=== PATIENT | female | born 1935 | race Caucasian/White ===

== ENCOUNTER 2017-07-19 11:58 | Inpatient (IN) | payer MEDICARE, BC ==
[~2017-07-19] VITALS: Ht 154.9 cm; Wt 57.2 kg
[~2017-07-19 11:58] MED LIST: LISI2.5T3 PO; NAPR500 PO; NEXI20CA PO; NORV2.5T11 PO; TRAM50 PO
[2017-07-19 12:05] VITALS: BP 95/59; PULSE 100; RESP 16; TEMP 98.2; O2SAT 98
[2017-07-19] MEDS ORDERED: LISI2.5T3 PO (12:25)
[2017-07-19] MEDS ORDERED: NEXI20CA PO (12:25)
[2017-07-19] MEDS ORDERED: AMLO2.5T PO (12:25)
[2017-07-19] MEDS ORDERED: SODIUM CHLORIDE 0.9% FLUSH 10 ML FLUSH IVF PRN (12:30)
--- NOTE | 2017-07-19 12:30 | PD ---
HPI Chief Complaint: Injury Time Seen by Provider: 12:07 Travel History International Travel<30 days: No Contact w/Intl Traveler<30days: No Traveled to known affect area: No History of Present Illness HPI 82-year-old female presents emergency department for evaluation of right hip pain after falling on Sunday, 3 days ago. Patient states her neighbor who is a glass toughening operator picked her up Sunday night and took her to the couch to lay down. She has not gotten up from the couch since then. She states the pain is too bad to walk on it. There is shortening of the right leg. Pedal pulses intact. Patient denies hitting her head or losing consciousness during the fall. It was a mechanical fall due to a rolling chair. Patient states she is tried to sit down on a chair rolled away from her. She landed on her right hip. She denies any other injuries associated with this fall. She denies any neck or back pain. She is not on any blood thinners. She states her appetite has been decreased secondary to pain. She denies any abdominal pain, vomiting or diarrhea When the patient was placed on the monitor it was noted her heart rate to be in the 160s. EKG was performed and it was noted to be SVT. Patient performed a vagal maneuver and her heart rate decreased into the 80s sinus rhythm. The patient denies any chest pain or shortness of breath associated with this event. She was noted transition back into SVT multiple times during her ED stay. Each time she transition into SVT she was able to convert back into normal sinus rhythm with a vagal maneuver. PFSH Past Medical History Diminished Hearing: No GERD: Yes Hypertension: Yes Tubal Ligation: Yes Past Surgical History Appendectomy: Yes Social History Alcohol Use: Yes (WINE OCCASSIONALLY) Tobacco Use: No Substance Use: No Allergies-Medications (Allergen,Severity, Reaction): Coded Allergies: No Known Allergies (Verified Allergy, Unknown, 07/19/17) Reported Meds & Prescriptions Reported Meds & Active Scripts Active Reported Nexium (Esomeprazole DR) 40 Mg Capdr 40 Mg PO DAILY Amlodipine (Amlodipine Besylate) 10 Mg Tab 10 Mg PO DAILY Lisinopril 20 Mg Tab 20 Mg PO DAILY Lisinopril 2.5 Mg Tab 2.5 Mg PO DAILY Nexium (Esomeprazole DR) 20 Mg Capdr 20 Mg PO DAILY Amlodipine (Amlodipine Besylate) 2.5 Mg Tab 2.5 Mg PO DAILY Review of Systems Except as stated in HPI: all other systems reviewed are Neg Musculoskeletal: Positive: Pain (right hip) Physical Exam Narrative GENERAL: Well-nourished, well-developed pale 82-year-old female patient. SKIN: Cool, pale and diaphoretic. HEAD: Normocephalic. Atraumatic. EYES: No scleral icterus. No injection or drainage. NECK: Supple, trachea midline. No JVD or lymphadenopathy. CARDIOVASCULAR: Regular rate and rhythm without murmurs, gallops, or rubs. RESPIRATORY: Breath sounds equal bilaterally. No accessory muscle use. GASTROINTESTINAL: Abdomen soft, non-tender, nondistended. MUSCULOSKELETAL: Right leg shortening. No external rotation noted. Pedal pulses +2. Right foot neurovascularly intact. No obvious deformity, ecchymosis , edema, erythema. BACK: No midline spinal tenderness. No obvious deformity, ecchymosis, erythema , cyanosis, edema. No CVA tenderness. Data Data Last Documented VS Vital Signs Date Time Temp Pulse Resp B/P (MAP) Pulse Ox O2 Delivery O2 Flow Rate FiO2 07/19/17 12:49 99 Room Air 07/19/17 12:05 98.2 100 16 95/59 (71) Orders Orders Electrocardiogram (07/19/17 12:23) Basic Metabolic Panel (Bmp) (07/19/17 12:23) Ckmb (Isoenzyme) Profile (07/19/17 12:23) Complete Blood Count With Diff (07/19/17 12:23) Magnesium (Mg) (07/19/17 12:23) Prothrombin Time / Inr (Pt) (07/19/17 12:23) Act Partial Throm Time (Ptt) (07/19/17 12:23) Troponin I (07/19/17 12:23) Iv Access Insert/Monitor (07/19/17 12:23) Oximetry (07/19/17 12:23) Sodium Chloride 0.9% Flush (Ns Flush) (07/19/17 12:30) Hip, Uni(Ap&Lat) W Ap Pelvis (07/19/17 12:23) Sodium Chlor 0.9% 1000 Ml Inj (Ns 1000 M (07/19/17 12:45) Chest, Single Ap (07/19/17 12:31) Sodium Chlor 0.9% 1000 Ml Inj (Ns 1000 M (07/19/17 12:45) Creatine Kinase (Cpk) (07/19/17 12:49) CKMB (07/19/17 12:35) CKMB% (07/19/17 12:35) Potassium Chlor 20 Meq Premix (Kcl 20 Me (07/19/17 14:00) Ns + Kcl 20 Meq Inj (Ns + Kcl 20 Meq Inj (07/19/17 14:00) Potassium Chloride (Kcl) (07/19/17 14:15) Admit Order (Ed Use Only) (07/19/17 15:02) Labs Laboratory Tests Test 07/19/17 12:35 White Blood Count 8.7 TH/MM3 Red Blood Count 3.35 MIL/MM3 Hemoglobin 11.9 GM/DL Hematocrit 33.7 % Mean Corpuscular Volume 100.5 FL Mean Corpuscular Hemoglobin 35.3 PG Mean Corpuscular Hemoglobin Concent 35.2 % Red Cell Distribution Width 13.6 % Platelet Count 163 TH/MM3 Mean Platelet Volume 8.0 FL Neutrophils (%) (Auto) 79.5 % Lymphocytes (%) (Auto) 8.4 % Monocytes (%) (Auto) 11.8 % Eosinophils (%) (Auto) 0.1 % Basophils (%) (Auto) 0.2 % Neutrophils # (Auto) 6.9 TH/MM3 Lymphocytes # (Auto) 0.7 TH/MM3 Monocytes # (Auto) 1.0 TH/MM3 Eosinophils # (Auto) 0.0 TH/MM3 Basophils # (Auto) 0.0 TH/MM3 CBC Comment DIFF FINAL Differential Comment Prothrombin Time 10.5 SEC Prothromb Time International Ratio 1.0 RATIO Activated Partial Thromboplast Time 32.4 SEC Blood Urea Nitrogen 6 MG/DL Creatinine 0.57 MG/DL Random Glucose 106 MG/DL Calcium Level 8.2 MG/DL Magnesium Level 0.8 MG/DL Sodium Level 113 MEQ/L Potassium Level 2.7 MEQ/L Chloride Level 76 MEQ/L Carbon Dioxide Level 25.3 MEQ/L Anion Gap 12 MEQ/L Estimat Glomerular Filtration Rate 101 ML/MIN Total Creatine Kinase 123 U/L Creatine Kinase MB 2.4 NG/ML Troponin I LESS THAN 0.02 NG/ML MDM Medical Decision Making Medical Screen Exam Complete: Yes Emergency Medical Condition: Yes Differential Diagnosis Differential diagnoses include but not limited to hip fracture, hip contusion, arrhythmia, fall, electrolyte abnormality Narrative Course Patient placed on the monitor soon as she arrived from EMS and was noted to have a heart rate in the 160s. EKG obtained in SVT was determined with heart rate 169. Vagal maneuver performed and patient converted into normal sinus rhythm with heart rate in 80s. Second EKG obtained to confirm sinus rhythm. IV obtained and blood work sent to the lab. CBC, BMP, troponin, CK-MB, total CK , magnesium, PT/INR ordered and pending. Chest x-ray ordered and pending. Right hip x-ray ordered and pending. 500 mL bolus normal saline ordered for hydration. X-ray of the right hip shows impacted femoral neck fracture on the right. Chest x-ray shows normal examination. CBC came back with no acute abnormality noted. BMP resulted in critical hyponatremia at 113, critical hypokalemia at 2.7, hypo-magnesium at 0.8. Total CK was within normal limits at 107. Patient case discussed with my attending, Dr. Keenan and it was recommended to give additional 2 L normal saline bolus, 40 mEq KCl by mouth, 20 mEq KCl IV bolus and normal saline +20 KCl at 100 mL an hour. Rail Gang Supervisor paged for admission. Dr. Fernandez returned page and accepted admission. Patient will be admitted to [facility] for electrolyte correction and hip fracture repair. Diagnosis Primary Impression: Hypokalemia Additional Impressions: Hyponatremia Hypomagnesemia Paroxysmal SVT (supraventricular tachycardia) Closed fracture of right hip Qualified Codes: S72.001A - Fracture of unspecified part of neck of right femur, initial encounter for closed fracture Admitting Information Admitting Physician Requests: Admit Dayna Cadena Jul 19, 2017 12:30
[2017-07-19] MEDS ORDERED: SODIUM CHLOR 0.9% 1000 ML INJ 1,000 ML IV ONE ×2 (12:45)
[2017-07-19 12:49] VITALS: O2SAT 99
[2017-07-19 13:06] LABS: AUTOMATED NEUTROPHIL # 6.9 TH/MM3 (1.8-7.7); BASOPHIL % 0.2 % (0.0-2.0); EOSINOPHIL % 0.1 % (0.0-4.0); HEMATOCRIT 33.7 % (35.0-46.0); HEMO FLAGS DIFF FINAL; LYMPH % 8.4 % (9.0-44.0); LYMPHOCYTE # 0.7 TH/MM3 (1.0-4.8); MEAN CELL VOLUME 100.5 FL (80.0-100.0); MEAN CORPUSCULAR HEMOGLOBIN 35.3 PG (27.0-34.0); MEAN CORPUSCULAR HGB CONC 35.2 % (32.0-36.0); MONO % 11.8 % (0.0-8.0); NEUT % 79.5 % (16.0-70.0); PLATELET COUNT 163 TH/MM3 (150-450); RED BLOOD COUNT 3.35 MIL/MM3 (4.00-5.30); RED CELL DISTRIBUTION WIDTH 13.6 % (11.6-17.2); WHITE BLOOD COUNT 8.7 TH/MM3 (4.0-11.0)
[2017-07-19 13:09] LABS: APTT (PATIENT) 32.4 SEC (24.3-30.1); PROTHROMBIN TIME - PATIENT 10.5 SEC (9.8-11.6)
[2017-07-19 13:38] LABS: ANION GAP 12 MEQ/L (5-15); BICARBONATE 25.3 MEQ/L (21.0-32.0); BLOOD UREA NITROGEN 6 MG/DL (7-18); CHLORIDE 76 MEQ/L (98-107); CREATINE KINASE 123 U/L (26-192); GLOMERULAR FILTRATION RATE 101 ML/MIN (>89); MAGNESIUM 0.8 MG/DL (1.5-2.5)
[2017-07-19 13:44] LABS: SODIUM (NA) 113 MEQ/L (136-145)
[2017-07-19 13:45] LABS: POTASSIUM 2.7 MEQ/L (3.5-5.1)
--- NOTE | 2017-07-19 13:53 | RADRPT ---
EXAM DATE/TIME: 07/19/2017 13:06 [facility] COMPARISON: No previous studies available for comparison. INDICATIONS : Right hip and pelvis pain due to fall. MEDICAL HISTORY : None. SURGICAL HISTORY : None. ENCOUNTER: Initial ACUITY: 1 day PAIN SCORE: 8/10 LOCATION: Right Hip and pelvis. FINDINGS: Examination of the right hip was performed with AP Pelvis. There is an impacted low femoral neck frac ture of the right hip. Visualized femoral head and acetabulum are unremarkable CONCLUSION: Impacted left femoral neck fracture on the right.. Jak Camacho MD on July 19, 2017 at 13:51 Board Certified Radiologist. This report was verified electronically.
--- NOTE | 2017-07-19 13:55 | RADRPT ---
EXAM DATE/TIME: 07/19/2017 13:11 [facility] COMPARISON: No previous studies available for comparison. INDICATIONS : Chest pain due to fall. MEDICAL HISTORY : None. SURGICAL HISTORY : None. ENCOUNTER: Initial ACUITY: 1 day PAIN SCORE: 8/10 LOCATION: Bilateral chest FINDINGS: A single view of the chest demonstrates the lungs to be symmetrically aerated without evidence of mas s, infiltrate or effusion. The cardiomediastinal contours are unremarkable. Osseous structures are intact. CONCLUSION: Normal examination. 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 This report was verified electronically.
[2017-07-19] MEDS ORDERED: POTASSIUM CHLOR 20 MEQ PREMIX 100 ML IV ONE (14:00)
[2017-07-19] MEDS ORDERED: POTASSIUM CHLORIDE 20 MEQ CONTROLLED RELEASE TAB PO ONE ×2 (14:00→14:15)
[2017-07-19] MEDS ORDERED: NS + KCL 20 MEQ INJ 1,000 ML IV SCH (14:00)
[2017-07-19 14:01] LABS: CKMB 2.4 NG/ML (0.5-3.6)
[2017-07-19] MEDS ORDERED: POTASSIUM CHLORIDE 25 MEQ EFFERVESCENT TAB PO ONE (14:15)
[2017-07-19] MEDS ORDERED: LACTULOSE SYRUP 20 GM/30 ML CUP PO PRN (16:00)
[2017-07-19] MEDS ORDERED: MORPHINE SULFATE 4 MG/ML INJ IV PUSH PRN (16:00)
[2017-07-19] MEDS ORDERED: SODIUM CHLORIDE 0.9% FLUSH 10 ML FLUSH IV FLUSH PRN (16:00)
[2017-07-19] MEDS ORDERED: MISCELLANEOUS NURSING INFORMATION XX SCH (16:00)
[2017-07-19] MEDS ORDERED: BISACODYL 10 MG SUPP RECTAL PRN (16:00)
[2017-07-19] MEDS ORDERED: SENNOSIDES 8.6 MG TAB PO PRN (16:00)
[2017-07-19] MEDS ORDERED: ONDANSETRON HCL 4 MG/2 ML VIAL IV PUSH PRN (16:00)
[2017-07-19] MEDS ORDERED: MAGNESIUM HYDROXIDE SUSP 30 ML CUP PO PRN (16:00)
[2017-07-19] MEDS ORDERED: CHLORHEXIDINE GLUCONATE 2 % 1 PACK (2 CLOTHS) TOP PRN (16:00)
[2017-07-19] MEDS ORDERED: DESMOPRESSIN ACETATE 4 MCG/ML VIAL SQ PRN (16:00)
--- NOTE | 2017-07-19 17:23 | HHI.HP ---
[facility] Service Critical Care Medicine Primary Care Physician Esteban Spears MD Admission Diagnosis fracture right hip, hyponatremia, hypokalemia, runs of SVT Diagnosis: (1) Closed fracture of right hip Diagnosis: Principal (2) Hyponatremia Diagnosis: Principal (3) Hypokalemia Diagnosis: Principal (4) Paroxysmal SVT (supraventricular tachycardia) Diagnosis: Principal (5) Hypomagnesemia Diagnosis: Principal Chief Complaint: Right hip pain. Travel History International Travel<30 Days: No Contact w/Intl Traveler <30 Da: No Traveled to Known Affected Are: No History of Present Illness Completely lucid and oriented 82 y/o woman brought to ED by EMS 3 days following a fall at home. She slid off a rolling chair and landed on her butt. Refused to come to ED earlier. Episode SVT at scene. Na 113, K 2.7, Mag 0.8 on arrival. BUN 6. Obviously well hydrated and hyponatremia probably chronic. She received 2,500 mls NS in ED and I am concerned about over-correction. We'll check sodium q4h and start DDAVP for Na > 120. May need D5W iv. Correct lytes, check cardiac markers. She has no chest pain or SOB and is O X 3 and alert. Hip fracture will need to wait for electrolyte correction. Past Family Social History Allergies: Coded Allergies: No Known Allergies (Verified Allergy, Unknown, 07/19/17) Past Medical History Past Medical History Diminished Hearing: No GERD: Yes Hypertension: Yes Tubal Ligation: Yes Past Surgical History Appendectomy: Yes Social History Alcohol Use: Yes (WINE OCCASIONALLY) Tobacco Use: No Substance Use: No Allergies-Medications Allergies-Medications (Allergen,Severity, Reaction): Coded Allergies: No Known Allergies (Verified Adverse Reaction, Unknown, 07/19/17) Reported Meds & Prescriptions Reported Meds & Active Scripts Active Reported Lisinopril 2.5 Mg Tab 2.5 Mg PO DAILY Nexium (Esomeprazole DR) 20 Mg Capdr 20 Mg PO DAILY Amlodipine (Amlodipine Besylate) 2.5 Mg Tab 2.5 Mg PO DAILY Physical Exam Vital Signs Vital Signs Date Time Temp Pulse Resp B/P (MAP) Pulse Ox O2 Delivery O2 Flow Rate FiO2 07/19/17 12:49 99 Room Air 07/19/17 12:05 98.2 100 16 95/59 (71) 98 Physical Exam Gen: Alert, calm. N Head: Atrauamatic. Neck: Supple, airway widely patent. Lungs: Clear, no wheezes or crackles. Heart: RRR, occ PMB, no m,r. Neck veins full, not distended. Abdomen: Benign, soft, BS active. No guarding. Extremities: Warm, well perfused. No peripheral edema. Tender right hip to palpation. Neuro: O X 3, alert, cooperative. CN II-XII intact. Moves 4 limbs to command. Laboratory Laboratory Tests Test 07/19/17 12:35 White Blood Count 8.7 Red Blood Count 3.35 Hemoglobin 11.9 Hematocrit 33.7 Mean Corpuscular Volume 100.5 Mean Corpuscular Hemoglobin 35.3 Mean Corpuscular Hemoglobin Concent 35.2 Red Cell Distribution Width 13.6 Platelet Count 163 Mean Platelet Volume 8.0 Neutrophils (%) (Auto) 79.5 Lymphocytes (%) (Auto) 8.4 Monocytes (%) (Auto) 11.8 Eosinophils (%) (Auto) 0.1 Basophils (%) (Auto) 0.2 Neutrophils # (Auto) 6.9 Lymphocytes # (Auto) 0.7 Monocytes # (Auto) 1.0 Eosinophils # (Auto) 0.0 Basophils # (Auto) 0.0 CBC Comment DIFF FINAL Differential Comment Prothrombin Time 10.5 Prothromb Time International Ratio 1.0 Activated Partial Thromboplast Time 32.4 Blood Urea Nitrogen 6 Creatinine 0.57 Random Glucose 106 Calcium Level 8.2 Magnesium Level 0.8 Sodium Level 113 Potassium Level 2.7 Chloride Level 76 Carbon Dioxide Level 25.3 Anion Gap 12 Estimat Glomerular Filtration Rate 101 Total Creatine Kinase 123 Creatine Kinase MB 2.4 Troponin I LESS THAN 0.02 Result Diagram: 07/19/17 1235 07/19/17 1235 Imaging Pelvis: Impacted fracture right femoral neck Caprini VTE Risk Assessment Caprini VTE Risk Assessment: Mod/High Risk (score >= 2) Caprini Risk Assessment Model Point Value = 1 Point Value = 2 Point Value = 3 Point Value = 5 Age 41-60 Minor surgery BMI > 25 kg/m2 Swollen legs Varicose veins or History of unexplained or recurrent spontaneous Oral contraceptives or hormone replacement Sepsis (< 1 month) Serious lung disease, including pneumonia (< 1 month) Abnormal pulmonary function Acute myocardial infarction Congestive heart failure (< 1 month) History of inflammatory bowel disease Medical patient at bed rest Age 61-74 Arthroscopic surgery Major open surgery (> 45 min) Laparoscopic surgery (> 45 min) Malignancy Confined to bed (> 72 hours) Immobilizing plaster cast Central venous access Age >= 75 History of VTE Family history of VTE Factor V Leiden Prothrombin [id number] Lupus anticoagulant Anticardiolipin antibodies Elevated serum homocysteine Heparin-induced thrombocytopenia Other congenital or acquired thrombophilia Stroke (< 1 month) Elective arthroplasty Hip, pelvis, or leg fracture Acute spinal cord injury (< 1 month) Prophylaxis Regimen Total Risk Factor Score Risk Level Prophylaxis Regimen 0-1 Low Early ambulation 2 Moderate Order ONE of the following: *Sequential Compression Device (SCD) *Heparin 5000 units SQ BID 3-4 Higher Order ONE of the following medications: *Heparin 5000 units SQ TID *Enoxaparin/Lovenox 40 mg SQ daily (WT < 150 kg, CrCl > 30 mL/min) *Enoxaparin/Lovenox 30 mg SQ daily (WT < 150 kg, CrCl > 10-29 mL/min) *Enoxaparin/Lovenox 30 mg SQ BID (WT < 150 kg, CrCl > 30 mL/min) AND/OR *Sequential Compression Device (SCD) 5 or more Highest Order ONE of the following medications: *Heparin 5000 units SQ TID (Preferred with Epidurals) *Enoxaparin/Lovenox 40 mg SQ daily (WT < 150 kg, CrCl > 30 mL/min) *Enoxaparin/Lovenox 30 mg SQ daily (WT < 150 kg, CrCl > 10-29 mL/min) *Enoxaparin/Lovenox 30 mg SQ BID (WT < 150 kg, CrCl > 30 mL/min) AND *Sequential Compression Device (SCD) Assessment and Plan Problem List: (1) Paroxysmal SVT (supraventricular tachycardia) ICD Code: I47.1 - Supraventricular tachycardia Status: Acute (2) Closed fracture of right hip ICD Code: S72.001A - Fracture of unspecified part of neck of right femur, initial encounter for closed fracture Status: Acute (3) Hyponatremia ICD Code: E87.1 - Hypo-osmolality and hyponatremia Status: Chronic (4) Hypokalemia ICD Code: E87.6 - Hypokalemia Assessment and Plan Plan: 1. Bed rest. 2. Feed if no surgery. 3. No salt shaker. 4. Na q4h. 5. DDAVP for Na > 120 next 24 hours. 6. D5W iv if Na > 121. 7. EKG. 8. SCDs. 9. Heparin 5000 tid - hold for OR when scheduled. 10. Cardiac markers. 11. Correct Magnesium, Potassium. Overall impression: Critically ill with life-threatening electrolyte imbalance. Potentially devastating neurological injury if probable chronic hyponatremia is corrected too fast. After 2.5 liters NS we are probably already too high. Check Na now and hold correction to less than 120 over first 24 hours. Episode of SVT probably triggered by low K and Mag. Anticipate roller coaster Na. Critical care 40 mins Wilbur Fernandez MD Jul 19, 2017 17:23
[2017-07-19] MEDS ORDERED: POTASSIUM CHLORIDE INJ 20 MEQ in DEXTROSE 5% IN WATE 1000ML INJ 1,000 ML IV SCH ×2 (17:45)
[2017-07-19 18:00] VITALS: PULSE 78
[2017-07-19] MEDS ORDERED: POTASSIUM CHLORIDE INJ 20 MEQ in LACTATED RINGER'S 1000 ML INJ 1,000 ML IV SCH (18:00)
[2017-07-19] MEDS ORDERED: LISI-515 PO (18:33)
[2017-07-19] MEDS ORDERED: AMLO10TA2 PO (18:34)
[2017-07-19] MEDS ORDERED: NEXI40CA PO (18:35)
[2017-07-19] MEDS ORDERED: MAGNESIUM OXIDE 400 MG TAB PO PRN (19:00)
[2017-07-19] MEDS ORDERED: POTASSIUM CHLORIDE 25 MEQ EFFERVESCENT TAB PO PRN (19:00)
[2017-07-19] MEDS ORDERED: SODIUM PHOSPHATE INJ 30 MMOL in SODIUM CHLOR 0.9% 250 ML INJ 240 ML IV PRN (19:00)
[2017-07-19] MEDS ORDERED: POTASSIUM PHOSPHATE MONOBASIC 500 MG TAB PO/TUBE PRN (19:00)
[2017-07-19] MEDS ORDERED: POTASSIUM PHOSPHATE MONOBASIC 500 MG TAB PO PRN (19:00)
[2017-07-19] MEDS ORDERED: POTASSIUM CHLOR 20 MEQ PREMIX 100 ML IV PRN (19:00)
[2017-07-19] MEDS ORDERED: MAGNESIUM SULFATE INJ 2 GM in SODIUM CHLORIDE 0.9% INJ 96 ML IV PRN (19:00)
[2017-07-19] MEDS ORDERED: POTASSIUM CHLOR 40 MEQ PREMIX 100 ML IV PRN ×2 (19:00)
[2017-07-19] MEDS ORDERED: POTASSIUM PHOSPHATE INJ 30 MMOL in SODIUM CHLOR 0.9% 250 ML INJ 250 ML IV PRN (19:00)
[2017-07-19 19:49] LABS: POTASSIUM 3.1 MEQ/L (3.5-5.1)
[2017-07-19 20:00] VITALS: BP 120/61; PULSE 76; RESP 17; TEMP 98; O2SAT 100
[2017-07-19] MEDS ORDERED: MAGNESIUM SULFATE INJ 4 GM in SODIUM CHLORIDE 0.9% INJ 92 ML IV PRN (21:00)
[2017-07-19] MEDS: FAMOTIDINE 20 MG/2 ML VIAL IV PUSH SCH (21:19)
[2017-07-19] MEDS: ACETAMINOPHEN 325 MG TAB PO PRN (21:19)
[2017-07-19] MEDS: D5W + KCL 20 MEQ INJ 1,000 ML IV SCH (21:19)
[2017-07-19] MEDS: MAGNESIUM SULFATE 1 GM PREMIX 100 ML IV SCH ×2 (21:19→22:22)
[2017-07-19] MEDS: DOCUSATE SODIUM 50 MG/SENNA 8.6 MG TAB PO SCH (21:19)
[2017-07-19] MEDS: SODIUM CHLORIDE 0.9% FLUSH 10 ML FLUSH IV FLUSH SCH (21:20)
[2017-07-19 22:00] VITALS: PULSE 68
[2017-07-19] MEDS: POTASSIUM CHLOR 20 MEQ PREMIX 100 ML IV PRN (22:20)
[2017-07-20] VITALS (12 sets, daily range): BP systolic 99–136; BP diastolic 55–93; PULSE 62–84; RESP 14–26; TEMP 97.7–98.2; O2SAT 98–100
[2017-07-20 01:20] LABS: AUTOMATED NEUTROPHIL # 4.9 TH/MM3 (1.8-7.7); BASOPHIL % 0.5 % (0.0-2.0); EOSINOPHIL % 0.6 % (0.0-4.0); HEMATOCRIT 30.6 % (35.0-46.0); HEMO FLAGS DIFF FINAL; LYMPH % 13.7 % (9.0-44.0); LYMPHOCYTE # 0.9 TH/MM3 (1.0-4.8); MEAN CELL VOLUME 102.1 FL (80.0-100.0); MEAN CORPUSCULAR HEMOGLOBIN 35.7 PG (27.0-34.0); NEUT % 72.2 % (16.0-70.0); PLATELET COUNT 163 TH/MM3 (150-450); RED CELL DISTRIBUTION WIDTH 13.6 % (11.6-17.2); WHITE BLOOD COUNT 6.7 TH/MM3 (4.0-11.0)
[2017-07-20 01:42] LABS: BICARBONATE 24.9 MEQ/L (21.0-32.0); MAGNESIUM 1.9 MG/DL (1.5-2.5)
[2017-07-20 01:50] LABS: POTASSIUM 2.8 MEQ/L (3.5-5.1)
[2017-07-20] MEDS: POTASSIUM CHLOR 20 MEQ PREMIX 100 ML IV PRN ×3 (03:09→08:19)
[2017-07-20] MEDS: CHLORHEXIDINE GLUCONATE 2 % 1 PACK (2 CLOTHS) TOP SCH (03:24)
[2017-07-20] MEDS: ACETAMINOPHEN 325 MG TAB PO PRN ×2 (03:28→10:11)
[2017-07-20] MEDS: SODIUM CHLORIDE 0.9% FLUSH 10 ML FLUSH IV FLUSH SCH ×2 (08:19→19:45)
--- NOTE | 2017-07-20 09:26 | HHI.CCPN ---
Subjective Remarks/Hospital Course Completely lucid and oriented 82 y/o woman brought to ED by EMS 3 days following a fall at home. She slid off a rolling chair and landed on her buttocks. Refused to come to ED earlier. Episode SVT at scene. Na 113, K 2.7, Mag 0.8 on arrival. BUN 6. Obviously well hydrated and hyponatremia probably chronic. She received 2,500 mls NS in ED and CCM concerned about over- correction. We'll check sodium q4h and start DDAVP for Na > 120. May need D5W iv. Correct lytes, check cardiac markers. She has no chest pain or SOB and is O X 3 and alert. Hip fracture will need to wait for electrolyte correction. Subjective: 07/20 Sodium correcting at appropriate rate up until 1 am, next set of labs are pending. Still hypokalemic and receiving replacement. Patient recalls being told she had hyponatremia in the past but says last outpatient labs were a year ago. Says she eats very little, just a little fruit here and there. Objective Vital Signs Date Time Temp Pulse Resp B/P (MAP) Pulse Ox O2 Delivery O2 Flow Rate FiO2 07/20/17 07:00 99 Room Air 07/20/17 06:00 62 07/20/17 04:28 23 07/20/17 04:00 98.0 121/55 (77) 07/20/17 00:41 21 Intake and Output 07/20/17 07/20/17 07/21/17 08:00 16:00 00:00 Intake Total 440 ml Output Total 2150 ml Balance -1710 ml Result Diagram: 07/20/17 0100 07/20/17 0100 Imaging Pelvis: Impacted fracture right femoral neck Objective Remarks GENERAL: Alert and interactive, sitting up in ISC bed. SKIN: Warm and dry. HEAD: Atraumatic. Normocephalic. EYES: Pupils equal and round. No scleral icterus. No injection or drainage. ENT: No nasal bleeding or discharge. Mucous membranes pink and moist. NECK: Trachea midline. No JVD. CARDIOVASCULAR: Regular rate and rhythm, sinus on the monitor. No murmurs rubs or gallops. RESPIRATORY: No accessory muscle use. Clear to auscultation. Breath sounds equal bilaterally. On RA. GASTROINTESTINAL: Abdomen soft, non-tender, nondistended. Bowel sounds present. MUSCULOSKELETAL: Extremities without clubbing, cyanosis, or edema. R leg shortened. . NEUROLOGICAL: Awake and alert. No obvious cranial nerve deficits. Normal speech. Oriented 3. Moves all extremities. A/P Problem List: (1) Paroxysmal SVT (supraventricular tachycardia) ICD Code: I47.1 - Supraventricular tachycardia Status: Resolved (2) Closed fracture of right hip ICD Code: S72.001A - Fracture of unspecified part of neck of right femur, initial encounter for closed fracture Status: Acute (3) Hyponatremia ICD Code: E87.1 - Hypo-osmolality and hyponatremia Status: Chronic (4) Hypokalemia ICD Code: E87.6 - Hypokalemia Status: Chronic Assessment and Plan NEURO: Alert and oriented Tylenol prn pain 1-5. Lortab as needed for pain 6-10 RESP: On room air. Incentive spirometry every hour CV: SVT (resolved) SVT likely secondary to hypomagnesemia and hypokalemia. Troponin negative Obtain 2-D echo GI: On heart healthy diet. Will hold when surgery scheduled. FEN/RENAL: Chronic hyponatremia Hypokalemia Hypomagnesemia Traore is in place. Monitor intake and output. Monitor electrolytes and replacing K and Mag. 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 Hyperaldosteronism is a consideration with the hypokalemia, will check renin and aldosterone as lisinopril has been on hold. CXR with no mass. Will check TSH and cortisol. Remainder of hyponatremia workup of little utility at this point after receiving IVF. DDAVP was ordered prn if sodium >120 in first 24 hours. Monitor sodium q4 hours. Sodium followed throughout the day and has reached a plateau at ~ 117-118. She is asymptomatic with this. As of 14:42 overall correction of 4 mEQ over 26 hours. Will fluid restrict to 800 mL. Salt tab 0.5 g po q 6hours but continue to follow sodium closely and avoid correction of sodium >124 over the following 24 hours. ID: Monitor for signs and symptoms of infection HEME: Monitor CBC ENDO: Euglycemic. Follow cortisol and TSH. MSK: R femoral neck fracture ortho consult. Would hold off on surgery today due to electrolyte derangements and need for slow correction of chronic hyponatremia due to risk for osmotic demyelination. Prefer sodium to be in upper 120s before surgery to avoid this complication which would be Sunday. PROPH: SCDs for DVT prophylaxis. Heparin 5000 subcutaneous q8 hours and hold when surgery schedule. ACCESS: PIV Discussed with ortho surgery. Level 3 followup. Problem Qualifiers (1) Closed fracture of right hip: Qualified Codes: S72.001A - Fracture of unspecified part of neck of right femur , initial encounter for closed fracture Shakila Hyatt MD Jul 20, 2017 09:26
[2017-07-20] MEDS ORDERED: INFLUENZA VIRUS VACCINE (QUADRIVALENT) 0.5 ML SYR IM ONE (10:00)
[2017-07-20] MEDS: FAMOTIDINE 20 MG/2 ML VIAL IV PUSH SCH ×2 (10:10→21:37)
[2017-07-20] MEDS: DOCUSATE SODIUM 50 MG/SENNA 8.6 MG TAB PO SCH ×2 (10:13→19:44)
--- NOTE | 2017-07-20 11:25 | PD.ORT.PN ---
Subjective Subjective Remarks s/p fall at home while cooking. reports right hip pain. overall, resting comfortably no real complaints. Objective Vitals Vital Signs Date Time Temp Pulse Resp B/P (MAP) Pulse Ox O2 Delivery O2 Flow Rate FiO2 07/20/17 07:00 99 Room Air 07/20/17 06:00 62 07/20/17 04:28 23 07/20/17 04:00 64 07/20/17 04:00 98.0 64 14 121/55 (77) 100 07/20/17 02:00 73 07/20/17 00:41 100 21 07/20/17 00:00 68 07/20/17 00:00 97.8 68 26 99/56 (70) 100 07/19/17 22:00 68 07/19/17 20:00 98.0 76 17 120/61 (80) 100 07/19/17 20:00 76 07/19/17 19:00 100 Room Air 07/19/17 18:00 78 07/19/17 12:49 99 Room Air 07/19/17 12:05 98.2 100 16 95/59 (71) 98 I/O 07/19/17 07/19/17 07/19/17 07/20/17 07/20/17 07/20/17 07:00 15:00 23:00 07:00 15:00 23:00 Intake Total 1000 ml 1200 ml 540 ml Output Total 2150 ml Balance 1000 ml 1200 ml -1610 ml Intake Oral 240 ml IV Total 1000 ml 1200 ml 300 ml Output Urine Total 2150 ml # Voids 1 # Bowel Movements 0 Result Diagram: 07/20/17 0100 07/20/17 0100 Other Results Laboratory Tests Test 07/19/17 12:35 Prothromb Time International Ratio 1.0 RATIO Prothrombin Time 10.5 SEC (9.8-11.6) Imaging Last 24 hours Impressions Chest X-Ray 07/19/17 1231 Signed Impressions: Service Date/Time: June 13:11 - CONCLUSION: Normal examination. 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 Jak Camacho MD Objective Remarks RLE: pain in hip with motion. no pain in knee or ankle. nvi Assessment & Plan Assessment and Plan 1) Right Intertroch Hip Fx -patient will need definitive fixation of right hip fx -patient has critical lab values at this time and is not optimized for surgery. Dr Hyatt is managing medically and states that she would like to wait til sunday for surgical intervention -patient is comfortable and this is reasonable. Dr Bradley will be taking over management tomorrow and will dictate a formal consult at that time. -NPO after MN Sunday -consents on chart. Robert Clark/First Sheryl GOLD Jul 20, 2017 11:25
[2017-07-20 11:33] LABS: AUTOMATED NEUTROPHIL # 5.3 TH/MM3 (1.8-7.7); BASOPHIL % 0.5 % (0.0-2.0); EOSINOPHIL % 0.3 % (0.0-4.0); HEMATOCRIT 32.7 % (35.0-46.0); HEMO FLAGS DIFF FINAL; LYMPH % 7.8 % (9.0-44.0); LYMPHOCYTE # 0.5 TH/MM3 (1.0-4.8); MEAN CELL VOLUME 101.9 FL (80.0-100.0); MEAN CORPUSCULAR HGB CONC 35.3 % (32.0-36.0); MONO % 12.8 % (0.0-8.0); NEUT % 78.6 % (16.0-70.0); PLATELET COUNT 203 TH/MM3 (150-450); RED BLOOD COUNT 3.21 MIL/MM3 (4.00-5.30); RED CELL DISTRIBUTION WIDTH 14.1 % (11.6-17.2); WHITE BLOOD COUNT 6.8 TH/MM3 (4.0-11.0)
[2017-07-20 11:49] LABS: BICARBONATE 24.2 MEQ/L (21.0-32.0); MAGNESIUM 1.5 MG/DL (1.5-2.5); POTASSIUM 5.1 MEQ/L (3.5-5.1)
[2017-07-20] MEDS: D5W + KCL 20 MEQ INJ 1,000 ML IV SCH (15:00)
[2017-07-20] MEDS: HEPARIN SODIUM - SQ 10,000 UNITS/ML VIAL SQ SCH ×2 (15:11→21:38)
[2017-07-20] MEDS: ACETAMINOPHEN/HYDROcodone 325 MG/5 MG TAB PO PRN (15:11)
[2017-07-20] MEDS: MORPHINE SULFATE 2 MG/ML INJ IV PUSH PRN (17:44)
[2017-07-20] MEDS: SODIUM CHLORIDE 1 GRAM TAB PO SCH (18:24)
[2017-07-20] MEDS ORDERED: PILL SPLITTER OTHER PRN (18:30)
--- NOTE | 2017-07-20 23:33 | EKG ---
Date Performed: 07/19/2017 Time Performed: 12:15:14 PTAGE: 82 years EKG: SINUS TACHYCARDIA PATTERN CONSISTENT WITH PULMONARY DISEASE LEFT ANTERIOR FASCICULAR BLOCK MINIMAL ST DEPRESSION ABNORMAL ECG INTERPRETATION BASED ON A DEFAULT AGE OF 40 YEARS Compared to the PREVIOUS TRACING from 07/19/17, rate has decreased, and only non-specific ST/T wave pimentel ges DOCTOR: Hipolito Caro Interpretating Date/Time 07/20/2017 23:32:12
--- NOTE | 2017-07-20 23:37 | EKG ---
Date Performed: 07/19/2017 Time Performed: 12:13:18 PTAGE: 82 years EKG: REGULAR TACHYCARDIA, POSSIBLE AVNRT MARKED LEFT AXIS DEVIATION ST/T WAVE CHANGES THROUGHOUT ABNORMAL ECG INTERPRETATION BASED ON A DEFAULT AGE OF 40 YEARS Compared to the PREVIOUS TRACING , now noted to be in SVT with ST/T wave changes DOCTOR: Hipolito Caro Interpretating Date/Time 07/20/2017 23:37:16
[2017-07-21] VITALS (14 sets, daily range): BP systolic 103–138; BP diastolic 51–63; PULSE 64–86; RESP 10–25; TEMP 97.6–98.9; O2SAT 99–100
[2017-07-21] MEDS: SODIUM CHLORIDE 1 GRAM TAB PO SCH ×7 (00:43→21:30)
[2017-07-21 02:21] LABS: AUTOMATED NEUTROPHIL # 4.2 TH/MM3 (1.8-7.7); BASOPHIL % 0.3 % (0.0-2.0); EOSINOPHIL # 0.1 TH/MM3 (0-0.4); EOSINOPHIL % 1.3 % (0.0-4.0); HEMATOCRIT 30.1 % (35.0-46.0); HEMO FLAGS DIFF FINAL; LYMPH % 14.5 % (9.0-44.0); LYMPHOCYTE # 0.9 TH/MM3 (1.0-4.8); MEAN CELL VOLUME 103.4 FL (80.0-100.0); MEAN CORPUSCULAR HEMOGLOBIN 36.2 PG (27.0-34.0); MONO % 17.2 % (0.0-8.0); NEUT % 66.7 % (16.0-70.0); PLATELET COUNT 195 TH/MM3 (150-450); RED BLOOD COUNT 2.91 MIL/MM3 (4.00-5.30); RED CELL DISTRIBUTION WIDTH 13.6 % (11.6-17.2); WHITE BLOOD COUNT 6.2 TH/MM3 (4.0-11.0)
[2017-07-21] MEDS: CHLORHEXIDINE GLUCONATE 2 % 1 PACK (2 CLOTHS) TOP SCH (02:25)
[2017-07-21 02:46] LABS: BICARBONATE 22.8 MEQ/L (21.0-32.0); POTASSIUM 3.9 MEQ/L (3.5-5.1)
[2017-07-21 04:31] LABS: FREE T3 2.47 PG/ML (2.18-3.98); FREE T4 1.22 NG/DL (0.76-1.46)
[2017-07-21] MEDS: LEVOTHYROXINE SODIUM 25 MCG TAB PO SCH (06:13)
[2017-07-21] MEDS: HEPARIN SODIUM - SQ 10,000 UNITS/ML VIAL SQ SCH ×4 (06:13→21:31)
[2017-07-21] MEDS: ACETAMINOPHEN/HYDROcodone 325 MG/5 MG TAB PO PRN ×2 (06:44→18:42)
[2017-07-21] MEDS: DOCUSATE SODIUM 50 MG/SENNA 8.6 MG TAB PO SCH ×2 (09:00→19:59)
[2017-07-21] MEDS: SODIUM CHLORIDE 0.9% FLUSH 10 ML FLUSH IV FLUSH SCH ×2 (10:15→19:59)
[2017-07-21] MEDS: FAMOTIDINE 20 MG/2 ML VIAL IV PUSH SCH (10:15)
--- NOTE | 2017-07-21 10:58 | HHI.CCPN ---
Subjective Remarks/Hospital Course Completely lucid and oriented 82 y/o woman brought to ED by EMS 3 days following a fall at home. She slid off a rolling chair and landed on her buttocks. Refused to come to ED earlier. Episode SVT at scene. Na 113, K 2.7, Mag 0.8 on arrival. BUN 6. Obviously well hydrated and hyponatremia probably chronic. She received 2,500 mls NS in ED and CCM concerned about over- correction. We'll check sodium q4h and start DDAVP for Na > 120. May need D5W iv. Correct lytes, check cardiac markers. She has no chest pain or SOB and is O X 3 and alert. Hip fracture will need to wait for electrolyte correction. 07/20 Sodium correcting at appropriate rate up until 1 am, next set of labs are pending. Still hypokalemic and receiving replacement. Patient recalls being told she had hyponatremia in the past but says last outpatient labs were a year ago. Says she eats very little, just a little fruit here and there. Subjective: 07/21 Reports no significant pain. Alert, no headache. Objective Vital Signs Date Time Temp Pulse Resp B/P (MAP) Pulse Ox O2 Delivery O2 Flow Rate FiO2 07/21/17 10:00 74 07/21/17 08:20 100 21 07/21/17 08:00 97.6 10 118/57 (77) 07/21/17 08:00 Room Air Intake and Output 07/21/17 07/21/17 07/22/17 08:00 16:00 00:00 Intake Total 480 ml Output Total 1250 ml Balance -770 ml Result Diagram: 07/21/17 0207 07/21/17 0543 Imaging Pelvis: Impacted fracture right femoral neck Objective Remarks GENERAL: Alert and interactive, sitting up in ISC bed. SKIN: Warm and dry. HEAD: Atraumatic. Normocephalic. EYES: Pupils equal and round. No scleral icterus. No injection or drainage. ENT: No nasal bleeding or discharge. Mucous membranes pink and moist. NECK: Trachea midline. No JVD. CARDIOVASCULAR: Regular rate and rhythm, sinus on the monitor. No murmurs rubs or gallops. RESPIRATORY: No accessory muscle use. Clear to auscultation. Breath sounds equal bilaterally. On RA. GASTROINTESTINAL: Abdomen soft, non-tender, nondistended. Bowel sounds present. MUSCULOSKELETAL: Extremities without clubbing, cyanosis, or edema. R leg shortened, palpable DP bilat, wiggles toes. NEUROLOGICAL: Awake and alert. No obvious cranial nerve deficits. Normal speech. Oriented 3. Moves all extremities. A/P Problem List: (1) Paroxysmal SVT (supraventricular tachycardia) ICD Code: I47.1 - Supraventricular tachycardia Status: Resolved (2) Closed fracture of right hip ICD Code: S72.001A - Fracture of unspecified part of neck of right femur, initial encounter for closed fracture Status: Acute (3) Hyponatremia ICD Code: E87.1 - Hypo-osmolality and hyponatremia Status: Chronic (4) Hypokalemia ICD Code: E87.6 - Hypokalemia Status: Chronic Assessment and Plan NEURO: Alert and oriented Tylenol prn pain 1-5. Lortab as needed for pain 6-10 RESP: h/o Tobacco abuse - short term, 2 years about 40 years ago On room air. Incentive spirometry every hour CV: SVT (resolved) SVT likely secondary to hypomagnesemia and hypokalemia. Troponin negative 2-D echo pending. GI: On heart healthy diet. NPO at midnight. FEN/RENAL: Chronic hyponatremia Hypokalemia Hypomagnesemia Traore is in place. Monitor intake and output. Monitor electrolytes and replacing K and Mag. 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 Hyperaldosteronism is a consideration with the hypokalemia, will check renin and aldosterone as lisinopril has been on hold. CXR with no mass. Cortisol normal, TSH addressed as per below. Remainder of hyponatremia workup of little utility at this point after receiving IVF. Continue fluid restrict to 800 mL. Salt tab 7 gram daily. Monitor sodium q6 hours. Avoid correction of sodium >126 over the following 24 hours. ID: Monitor for signs and symptoms of infection HEME: Monitor CBC ENDO: Euglycemic. TSH elevated with normal T3/T4. Started on synthroid 25 mcg po daily for subclinical hypothyroid. MSK: R femoral neck fracture ortho consult. Would hold off on surgery today due to electrolyte derangements and need for slow correction of chronic hyponatremia due to risk for osmotic demyelination. Prefer sodium to be in mid/upper 120s before surgery to avoid this complication which would be Sunday. PROPH: SCDs for DVT prophylaxis. Heparin 5000 subcutaneous q8 hours and hold when surgery schedule. ACCESS: PIV Discussed with ortho surgery 07/20. Level 2 followup. Problem Qualifiers (1) Closed fracture of right hip: Qualified Codes: S72.001A - Fracture of unspecified part of neck of right femur , initial encounter for closed fracture Shakila Hyatt MD Jul 21, 2017 10:58
[2017-07-21] MEDS ORDERED: SODIUM CHLORIDE 1 GRAM TAB PO ONE ×2 (11:00→20:00)
--- NOTE | 2017-07-21 13:27 | ECHRPT ---
Indication: HEART FAILURE CONCLUSIONS Normal left ventricular size. Wall thickness is normal. The left ventricular systolic function is normal with an estimated ejection fraction in the range of 55-60%. There is trace tricuspid valve regurgitation. The estimated pulmonary arterial pressure is 38 mmHg. BP: 121 / 55 HR: 64 Rhythm: MEASUREMENTS (Male / Female) Normal Values Technical Quality:Good 2D ECHO LV Diastolic Diameter PLAX 4.2 cm 4.2 - 5.9 / 3.9 - 5.3 cm LV Systolic Diameter PLAX 3.2 cm IVS Diastolic Thickness 0.8 cm 0.6 - 1.0 / 0.6 - 0.9 cm LVPW Diastolic Thickness 0.5 cm 0.6 - 1.0 / 0.6 - 0.9 cm LV Relative Wall Thickness 0.3 RV Internal Dim ED PLAX 1.7 cm LA Systolic Diameter LX 3.1 cm 3.0 - 4.0 / 2.7 - 3.8 cm DOPPLER Mitral E Point Velocity 68.5 cm/s Mitral A Point Velocity 86.4 cm/s Mitral E to A Ratio 0.8 TR Peak Velocity 282.0 cm/s TR Peak Gradient 31.8 mmHg FINDINGS LEFT VENTRICLE Normal left ventricular size. Wall thickness is normal. The left ventricular systolic function is normal with an estimated ejection fraction in the range of 55-60%. RIGHT VENTRICLE Normal right ventricular size and systolic function. LEFT ATRIUM The left atrial size is normal. RIGHT ATRIUM The right atrial size is normal. ATRIAL SEPTUM Normal atrial septal thickness without atrial level shunting by limited color doppler interrogation. AORTA The aortic root and proximal ascending aorta are normal in size on limited imaging. MITRAL VALVE Structurally normal mitral valve. No mitral valve stenosis or regurgitation. AORTIC VALVE Trileaflet aortic valve. No aortic valve stenosis or regurgitation. TRICUSPID VALVE There is trace tricuspid valve regurgitation. The estimated pulmonary arterial pressure is 38 mmHg. PULMONARY VALVE The pulmonary valve is not well visualized. VESSELS The inferior vena cava is normal in size. PERICARDIUM No pericardial effusion. Diego Kamara MD (Electronically Signed) Final Date:21 July 2017 13:26
--- NOTE | 2017-07-21 14:20 | MB ---
cc: BELEN PACHECO M.D. DATE OF CONSULTATION: 07/21/2017. REASON FOR CONSULTATION: Right hip fracture. HISTORY OF PRESENT ILLNESS: The patient is an 82-year-old female who had a mechanical fall when she was in a chair that moved and she landed directly onto the right buttock. She noticed immediate pain and she was brought to [facility] and found to have a hip fracture. On her admission labs, the patient was found to be severely hyponatremic and she was admitted to the intensive care unit for correction of the hyponatremia. She came in yesterday and Dr. Francisco's physician assistant auto center manager had seen her and she was not cleared for surgical management. I was asked to see the patient today to see if we could potentially move forward with surgical management as soon as she is cleared. The patient denies pain in the upper extremities. She has no pain about the left lower extremity. She has had no previous significant problems with the right hip in the past. She does not describe any specific radiating numbness or tingling. PAST MEDICAL HISTORY: 1. Gastroesophageal reflux disease (GERD). 2. Hypertension. PAST SURGICAL HISTORY: Appendectomy. SOCIAL HISTORY: The patient drinks wine occasionally. She does not smoke. ALLERGIES: NO KNOWN DRUG ALLERGIES. MEDICATIONS: See the chart. She is not on any specific blood thinners. FAMILY HISTORY: Noncontributory. PHYSICAL EXAMINATION: VITAL SIGNS: The patient's temperature is 97.9, pulse is 76, respirations 25, blood pressure 107/52. GENERAL: The patient is awake, alert and oriented x3. She is in no distress. As a matter of fact, she is lying very comfortably in bed reading the newspaper. Her is at the bedside. HEAD, EYES, EARS, NOSE, THROAT: Her head is atraumatic. The oropharynx is moist. Extraocular muscles are intact. NECK: The neck is supple. The neck is nontender. HEART: Regular rate and rhythm. LUNGS: Normal inspiratory effort with no audible wheeze. ABDOMEN: The abdomen is soft, nontender and nondistended. UPPER EXTREMITIES: Good active range of motion of the shoulders, elbows and wrists. LOWER EXTREMITIES: The right hip shows just some mild swelling. No open wounds are noted. She can actually move the toes well on the right foot. She has 2+ dorsalis pedis pulse on the right foot, left knee and ankle have no tenderness and no swelling and actively moves her toe well. LABORATORY STUDIES: White cell count of 8.7, hematocrit is 33.7, platelets of 163,000. Coagulations: INR is 1.0. Chemistries: The sodium was originally at 118 and then it went up to 120. I have been verbally told it is at 122 now. IMAGING STUDIES: I have reviewed the images and the report and agree with the impression showing a right hip fracture. The fracture essentially is a basicervical type of fracture, which appears to be fairly vertical in nature. There appears to be some comminution around the greater trochanter. IMPRESSION: 1. Right hip basicervical femoral neck fracture with some local comminution. 2. Hyponatremia. DECISION-MAKING: I discussed the diagnosis in detail with the patient. We discussed treatment options. We discussed operative versus nonoperative management for this condition. I do recommend surgical management. I do believe that nonoperative management has significant risks of having both acute, short-term and long-term complications such as inability to ambulate, DVT, pneumonia, bed sores, and potentially . I do recommend surgery. Based on the fracture pattern, surgery would likely consist of a open reduction internal fixation with a trochanteric nail; however, I would not totally rule out hemiarthroplasty as a treatment option. We discussed long-term issues such as need for potential time for non-weightbearing or limited weightbearing to allow for healing. There are other risks such as injury to nerves, blood vessels, bleeding, infection, failure of hardware, need for re-operation, continued pain, loss of range of motion of associated joints, DVT, pulmonary embolus, pneumonia and . At this point, the patient is still not medically cleared to move forward with surgical management. I did put a call out to Dr. Hyatt to discuss the case with the group work program director. Dr. Hyatt is currently taking care of another patient during an emergency. I did talk to the nurse who communicated to me that they feel that likely the patient needed to be up to a sodium of 125 before moving forward with surgical management. I am unsure if the patient will be able to get there by tomorrow. We will clinically follow this and see if she is cleared in the morning to move forward with surgical management. If the patient cannot be operated on tomorrow, then it is possible that it may need to be a day later. It is also possible that one of my partners may ultimately help take care of this patient depending on timing of medical clearance. The patient and her understand this and all questions have been answered. MD MARY Alexander/MARCELLE /1:40 PM /1:52 PM
[2017-07-21 22:37] LABS: URIC ACID 2.6 MG/DL (2.6-6.0)
[2017-07-22] VITALS (13 sets, daily range): BP systolic 109–131; BP diastolic 56–84; PULSE 67–90; RESP 14–24; TEMP 96.4–98.7; O2SAT 95–100
[2017-07-22] MEDS: CHLORHEXIDINE GLUCONATE 2 % 1 PACK (2 CLOTHS) TOP SCH (01:23)
[2017-07-22] MEDS: MORPHINE SULFATE 2 MG/ML INJ IV PUSH PRN (02:29)
[2017-07-22 04:15] LABS: HEMATOCRIT 27.2 % (35.0-46.0); MEAN CORPUSCULAR HEMOGLOBIN 35.7 PG (27.0-34.0); MEAN CORPUSCULAR HGB CONC 34.7 % (32.0-36.0); PLATELET COUNT 211 TH/MM3 (150-450); RED BLOOD COUNT 2.65 MIL/MM3 (4.00-5.30); RED CELL DISTRIBUTION WIDTH 13.7 % (11.6-17.2); REVIEW FLAG FINAL; WHITE BLOOD COUNT 5.5 TH/MM3 (4.0-11.0)
[2017-07-22 04:16] LABS: BICARBONATE 26.5 MEQ/L (21.0-32.0); MAGNESIUM 1.3 MG/DL (1.5-2.5); POTASSIUM 3.7 MEQ/L (3.5-5.1)
[2017-07-22] MEDS: LEVOTHYROXINE SODIUM 25 MCG TAB PO SCH (06:00)
[2017-07-22] MEDS: SODIUM CHLORIDE 1 GRAM TAB PO SCH ×4 (06:00→22:20)
[2017-07-22] MEDS: MAGNESIUM SULFATE 1 GM PREMIX 100 ML IV SCH ×3 (06:24→11:42)
--- NOTE | 2017-07-22 06:31 | HHI.CCPN ---
Subjective Remarks/Hospital Course Completely lucid and oriented 82 y/o woman brought to ED by EMS 3 days following a fall at home. She slid off a rolling chair and landed on her buttocks. Refused to come to ED earlier. Episode SVT at scene. Na 113, K 2.7, Mag 0.8 on arrival. BUN 6. Obviously well hydrated and hyponatremia probably chronic. She received 2,500 mls NS in ED and CCM concerned about over- correction. We'll check sodium q4h and start DDAVP for Na > 120. May need D5W iv. Correct lytes, check cardiac markers. She has no chest pain or SOB and is O X 3 and alert. Hip fracture will need to wait for electrolyte correction. 07/20 Sodium correcting at appropriate rate up until 1 am, next set of labs are pending. Still hypokalemic and receiving replacement. Patient recalls being told she had hyponatremia in the past but says last outpatient labs were a year ago. Says she eats very little, just a little fruit here and there. 07/21 Reports no significant pain. Alert, no headache. Subjective: 07/22: Resting comfortably in bed in no acute distress. Pain controlled. Plan for or today for definitive treatment Objective Vital Signs Date Time Temp Pulse Resp B/P (MAP) Pulse Ox O2 Delivery O2 Flow Rate FiO2 07/22/17 06:00 67 07/22/17 04:00 98.3 16 124/59 (80) 98 07/21/17 21:41 21 07/21/17 19:00 Room Air Intake and Output 07/22/17 07/22/17 07/22/17 07:59 15:59 23:59 Intake Total 240 ml Output Total 550 ml Balance -310 ml Result Diagram: 07/22/17 0347 07/22/17 0347 Imaging Last Impressions Chest X-Ray 07/19/17 1231 Signed Impressions: Service Date/Time: June 13:11 - CONCLUSION: Normal examination. 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 Jak Camacho MD Objective Remarks GENERAL: 82-year-old female, appears stated age currently resting in bed in no acute distress SKIN: Warm and dry. We'll perfused HEAD: Atraumatic. Normocephalic. EYES: Pupils equal and round about 3 mm bilaterally and reactive. No scleral icterus. No injection or drainage. ENT: No nasal bleeding or discharge. Mucous membranes pink and moist. NECK: Trachea midline. No JVD. CARDIOVASCULAR: Regular rate and rhythm, S1, S2. No S4. Without murmurs, clicks, gallops or rubs. RESPIRATORY: Clear to auscultation bilaterally without wheezes rales or rhonchi GASTROINTESTINAL: Abdomen soft, non-tender, nondistended. Normoactive Bowel sounds present. MUSCULOSKELETAL: Extremities without significant peripheral edema. R leg shortened, palpable DP bilat, moving toes. NEUROLOGICAL: Awake and alert. Cranial nerves II through XII grossly intact. Strength appears equal and symmetric. Normal sensation. A/P Assessment and Plan NEURO/PSYCH: Acute Pain management Acetaminophen 650 mg every 6 hours when necessary pain 1-5 Hydrocodone/acetaminophen 11/6024 1 tablet every 6 hours when necessary pain 6-10 RESP: h/o Tobacco abuse - short term, 2 years about 40 years ago On room air. Nasal cannula if indicated to maintain saturations greater than equal to 92% Incentive spirometry every hour while awake CV: SVT (resolved) History of Hypertension SVT likely secondary to hypomagnesemia and hypokalemia. Troponin negative 2-D echo ejection fraction 55-60%. Pulmonary arterial pressure 38 mmHg. Currently holding amlodipine 10 mg daily and lisinopril 20 mg daily/home medications in light of normal blood pressures currently GI: Hiatal hernia Gastroesophageal reflux disease On heart healthy diet yesterday NPO at midnight. Docusate sodium/senna 100 mg S8.6 milligrams 1 tablet twice a day for bowel regimen Currently holding esomeprazole 40 mg daily/home medication light of possible SIADH patient currently asymptomatic FEN/RENAL: Hypoosmolar euvolemic hyponatremia Hypomagnesemia Traore is in place. Monitor intake and output. Monitor electrolytes and replacing K and Mag. 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 Urine OSM 320 TSH 11.2. Normal T4/T3. Cortisol 17. Uric acid 2.6. Pending weaning/aldosterone ACTH. Continue fluid restrict to 800 mL. sodium chloride 1 g 5 times daily Monitor sodium q6 hours. Avoid correction of sodium >130 over the following 24 hours. ID: Monitor for signs and symptoms of infection HEME: Normocytic normochromic anemia Monitor CBC daily ENDO: Elevated TSH Euglycemic. TSH elevated at 11.2 with normal T3/T4. Initiated levothyroxine 25 mcg po daily for subclinical hypothyroid. Sliding-scale insulin only if indicated to maintain euglycemia MSK: R femoral neck fracture ortho consult. Patient sodium currently 125. Borderline but should be adequate for or today PROPH: SCDs for DVT prophylaxis. Heparin 5000 subcutaneous q8 hours early on hold when surgery schedule. ACCESS: PIV Level 2 followup. Doni Luna MD Jul 22, 2017 06:31
[2017-07-22] MEDS ORDERED: POTASSIUM CHLORIDE 20 MEQ CONTROLLED RELEASE TAB PO ONE (06:45)
[2017-07-22] MEDS ORDERED: GENTAMICIN SULFATE 80 MG/2 ML VIAL ONE ×2 (07:04→08:01)
[2017-07-22] MEDS ORDERED: SODIUM CHLOR 0.9% 250 ML INJ 250 ML ONE (07:04)
[2017-07-22] MEDS ORDERED: VANCOMYCIN HCL 1000 MG VIAL ONE (07:04)
[2017-07-22] MEDS ORDERED: ACETAMINOPHEN 1000 MG/100 ML 0 ML IV ONE (07:22)
[2017-07-22] MEDS ORDERED: KETAMINE HCL 500 MG/5 ML VIAL ONE (07:52)
[2017-07-22] MEDS ORDERED: TRANEXAMIC ACID INJ 1,000 MG/10 ML AMP ONE (07:58)
[2017-07-22] MEDS ORDERED: ceFAZolin INJ 1,000 MG VIAL ONE (08:01)
[2017-07-22] MEDS ORDERED: SODIUM CHLOR 0.9% 1000 ML INJ 1,000 ML IV SCH (08:53)
--- NOTE | 2017-07-22 08:59 | PD.OP ---
cc: Rashid Bradley MD Operative Report Date of Surgery: Jul 22, 2017 Preoperative Diagnosis: Right hip basicervical intertrochanteric fracture Postoperative Diagnosis: Same Procedure: Right hip treatment of intertrochanteric fracture with intramedullary nail Anesthesia: Gen. Surgeon: Rashid Bradley Registered Nurse Surgical Services(s): RAMSEY Bhagat The surgical procedure was assisted by my Advanced Registered Nurse Practitioner. My CREDIT RISK SPECIALIST presence was necessary throughout this case for the manipulation and positioning of the surgical extremity. My CREDIT RISK SPECIALIST was assisting me throughout the duration of this procedure. The skill set of an Advance Registered Nurse Practitioner was medically necessary to complete this procedure. During the surgical case, the surgical services assistant was working at the back table and the Advance Registered Nurse Practitioner was directly assisting me. Operation and Findings: Estimated blood loss: 100 cc Implants: Synthes short trochanteric nail, size: 12, 130 We confirmed with the intensive care physician this morning that the patient was cleared to move forward with surgical management as far as her hyponatremia was concerned. The patient received intravenous vancomycin and Ancef. After the appropriate anesthesia was administered, and the patient was transferred to the fracture table. The fracture was anatomically reduced under fluoroscopic imaging. The hip was prepped and draped in usual sterile fashion. We made incision just proximal to the tip of the greater trochanter. We dissected down through the deep fascia. We used a threaded guidewire at the tip of the greater trochanter which was placed down to the metaphyseal region on both the AP and lateral views. We reamed proximally. Using fluoroscopic analysis we templated the appropriate size for the short nail. This nail was then placed into position under fluoroscopic guidance. We made incision laterally based on the position of the associated jig. We then placed a threaded guidewire into the center, center of the femoral head. The appropriate length for the helical blade was measured. We drilled laterally and then step reamed the femoral neck and femoral head region. The helical blade was placed into position. We then tightened the proximal set screw, which was followed by releasing one turn off of the screw to allow for compression. Traction was released from the leg and then manual compression was performed. The fracture did shorten somewhat with this maneuver. It still remained anatomic. We decided to go ahead and lock the nail and proximally to make a fixed angle device since we had good cortical contact and we did not want further shortening. The nail was secured distally with a single screw off of the jig using fluoroscopic guidance. We took final fluoroscopic imaging which revealed that the fracture was in very good position. The hardware was in good position as well. The wounds were thoroughly irrigated and then closed with a 0 Vicryl followed by 2-0 Vicryl and melba. The postoperative plan is to start toe-touch weightbearing. Additionally, we will initiate postoperative antibiotics for 24 hours along with DVT prophylaxis consisting of early mobilization, SCDs, compression stockings, and Lovenox followed by aspirin. Rashid Bradley MD Jul 22, 2017 08:59
[2017-07-22] MEDS ORDERED: ONDANSETRON HCL 4 MG/2 ML VIAL IVP PRN (09:00)
[2017-07-22] MEDS ORDERED: BISACODYL 10 MG SUPP RECTAL PRN (09:00)
[2017-07-22] MEDS ORDERED: ALUMINUM/MAGNESIUM/SIMETH 30 ML CUP PO PRN (09:00)
[2017-07-22] MEDS ORDERED: diphenhydrAMINE HCL 50 MG/ML VIAL IV PUSH PRN (09:00)
[2017-07-22] MEDS ORDERED: MAGNESIUM HYDROXIDE SUSP 30 ML CUP PO PRN (09:00)
[2017-07-22] MEDS ORDERED: Post-op Orders (for Pharmacy) XX ONE (09:00)
[2017-07-22] MEDS ORDERED: NALOXONE HCL 0.4 MG/ML AMP IV PUSH PRN (09:00)
[2017-07-22] MEDS ORDERED: MORPHINE SULFATE 2 MG/ML INJ IV PUSH PRN (09:00)
[2017-07-22] MEDS ORDERED: ZOLPIDEM TARTRATE 5 MG TAB PO PRN (09:00)
[2017-07-22] MEDS ORDERED: ASPI-146 PO (09:01)
[2017-07-22] MEDS ORDERED: ENOX40IN SQ (09:01)
[2017-07-22] MEDS ORDERED: NORC5TAB PO (09:01)
[2017-07-22] MEDS ORDERED: *morphine SULFATE 8 MG/ML PERIprocedure ONLY ONE ×2 (09:24→09:49)
--- NOTE | 2017-07-22 09:31 | RADRPT ---
EXAM DATE/TIME: 07/22/2017 08:23 [facility] COMPARISON: No previous studies available for comparison. INDICATIONS : Right hip troch nail. MEDICAL HISTORY : None. SURGICAL HISTORY : None. ENCOUNTER: Initial ACUITY: 1 day PAIN SCORE: Non-responsive. LOCATION: Right hip. FINDINGS: Intertrochanteric nail in good position. Alignment anatomic. CONCLUSION: Anatomic alignment Andrea Akers MD FACR on July 22, 2017 at 9:29 Board Certified Radiologist. This report was verified electronically.
[2017-07-22] MEDS: SODIUM CHLORIDE 0.9% FLUSH 10 ML FLUSH IV FLUSH SCH ×2 (11:00→20:19)
[2017-07-22] MEDS ORDERED: TRANEXAMIC ACID IV SCH (11:00)
[2017-07-22] MEDS ORDERED: SODIUM CHLORIDE 0.9% IV SCH (11:00)
[2017-07-22] MEDS: DOCUSATE SODIUM 50 MG/SENNA 8.6 MG TAB PO SCH ×2 (11:01→20:19)
--- NOTE | 2017-07-22 12:09 | PD.ORT.PN ---
Objective Vitals Vital Signs Date Time Temp Pulse Resp B/P (MAP) Pulse Ox O2 Delivery O2 Flow Rate FiO2 07/22/17 10:10 97.6 80 14 96 Nasal Cannula 2 07/22/17 10:00 76 13 114/57 (76) 94 Nasal Cannula 2 07/22/17 09:45 82 14 110/54 (72) 95 Nasal Cannula 2 07/22/17 09:30 88 14 109/43 (65) 100 Simple Mask 6 07/22/17 09:19 97.5 85 15 102/52 (69) 100 Simple Mask 6 07/22/17 07:00 99 Room Air 07/22/17 06:00 67 07/22/17 04:00 98.3 70 16 124/59 (80) 98 07/22/17 04:00 70 07/22/17 02:00 80 07/22/17 00:00 79 07/22/17 00:00 98.7 79 24 116/61 (79) 99 07/21/17 22:00 68 07/21/17 21:41 100 21 07/21/17 20:00 82 07/21/17 20:00 98.9 82 23 103/62 (76) 100 07/21/17 19:00 100 Room Air 07/21/17 18:00 82 07/21/17 16:00 78 07/21/17 16:00 97.8 75 19 105/51 (69) 100 07/21/17 14:00 77 I/O 07/21/17 07/21/17 07/21/17 07/22/17 07/22/17 07/22/17 07:00 15:00 23:00 07:00 15:00 23:00 Intake Total 480 ml 652 ml 240 ml 800 ml Output Total 1250 ml 900 ml 550 ml 175 ml Balance -770 ml -248 ml -310 ml 625 ml Intake Oral 480 ml 650 ml 240 ml IV Total 2 ml 200 ml Other 600 ml Output Urine Total 1250 ml 900 ml 550 ml 125 ml Stool Total 0 ml Estimated Blood Loss 50 ml # Bowel Movements 0 Result Diagram: 07/22/17 0347 07/22/17 1050 Imaging Last 24 hours Impressions Chest X-Ray 07/19/17 1231 Signed Impressions: Service Date/Time: June 13:11 - CONCLUSION: Normal examination. 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 Jak Camacho MD Assessment & Plan Assessment and Plan POD #0: Right hip IMN for intertrochanteric fracture 1. TTWB RLE 2. Lovenox followed by ASA for DVT prophylaxis 3. Ice to the right hip PRN 4. Anticipatory discharge to SNF once medically cleared 5. F/U in the office in 1-[address] Bradley or RAMSEY Alvarado Daniel Scott ARNP Jul 22, 2017 12:09
[2017-07-22] MEDS ORDERED: WALKER WHEELS/F1 MIS (12:18)
[2017-07-22] MEDS ORDERED: COMMODE 3-IN-11 MIS (12:18)
[2017-07-22] MEDS: ACETAMINOPHEN/HYDROcodone 325 MG/5 MG TAB PO PRN (19:36)
[2017-07-22] MEDS ORDERED: SODIUM CHLORIDE 1 GRAM TAB PO SCH (21:00)
[2017-07-22 22:08] LABS: MAGNESIUM 1.8 MG/DL (1.5-2.5)
[2017-07-23] VITALS (14 sets, daily range): BP systolic 97–146; BP diastolic 61–80; PULSE 73–99; RESP 20–26; TEMP 97.6–98.3; O2SAT 99–100
[2017-07-23] MEDS: CHLORHEXIDINE GLUCONATE 2 % 1 PACK (2 CLOTHS) TOP SCH (03:51)
[2017-07-23 05:30] LABS: AUTOMATED NEUTROPHIL # 7.4 TH/MM3 (1.8-7.7); BASOPHIL % 0.4 % (0.0-2.0); HEMATOCRIT 26.4 % (35.0-46.0); HEMO FLAGS DIFF FINAL; LYMPHOCYTE # 0.3 TH/MM3 (1.0-4.8); MEAN CELL VOLUME 103.8 FL (80.0-100.0); MEAN CORPUSCULAR HEMOGLOBIN 35.6 PG (27.0-34.0); MEAN CORPUSCULAR HGB CONC 34.3 % (32.0-36.0); MONO % 9.6 % (0.0-8.0); PLATELET COUNT 243 TH/MM3 (150-450); RED BLOOD COUNT 2.54 MIL/MM3 (4.00-5.30); RED CELL DISTRIBUTION WIDTH 13.8 % (11.6-17.2); WHITE BLOOD COUNT 8.5 TH/MM3 (4.0-11.0)
[2017-07-23] MEDS: LEVOTHYROXINE SODIUM 25 MCG TAB PO SCH (06:00)
[2017-07-23 06:01] LABS: ALKALINE PHOSPHATASE 75 U/L (45-117); ALT (GPT) 14 U/L (10-53); ANION GAP 10 MEQ/L (5-15); AST (GOT) 24 U/L (15-37); BICARBONATE 22.6 MEQ/L (21.0-32.0); BLOOD UREA NITROGEN 6 MG/DL (7-18); CHLORIDE 89 MEQ/L (98-107); GLOMERULAR FILTRATION RATE 103 ML/MIN (>89); MAGNESIUM 1.5 MG/DL (1.5-2.5); POTASSIUM 4.1 MEQ/L (3.5-5.1); TOTAL BILIRUBIN ADULT 0.4 MG/DL (0.2-1.0)
[2017-07-23 06:06] LABS: SODIUM (NA) 122 MEQ/L (136-145)
[2017-07-23] MEDS: SODIUM CHLORIDE 1 GRAM TAB PO SCH ×5 (06:23→21:23)
[2017-07-23] MEDS: ACETAMINOPHEN/HYDROcodone 325 MG/5 MG TAB PO PRN ×2 (06:24→18:18)
[2017-07-23] MEDS ORDERED: FUROSEMIDE 20 MG/2 ML VIAL IV PUSH ONE (06:30)
[2017-07-23] MEDS ORDERED: SODIUM CHLORIDE 23.4% INJ 188 MEQ in SODIUM CHLOR 0.9% 1000 ML INJ 1,000 ML IV SCH (07:00)
--- NOTE | 2017-07-23 07:22 | HHI.CCPN ---
Subjective Remarks/Hospital Course Completely lucid and oriented 82 y/o woman brought to ED by EMS 3 days following a fall at home. She slid off a rolling chair and landed on her buttocks. Refused to come to ED earlier. Episode SVT at scene. Na 113, K 2.7, Mag 0.8 on arrival. BUN 6. Obviously well hydrated and hyponatremia probably chronic. She received 2,500 mls NS in ED and CCM concerned about over- correction. We'll check sodium q4h and start DDAVP for Na > 120. May need D5W iv. Correct lytes, check cardiac markers. She has no chest pain or SOB and is O X 3 and alert. Hip fracture will need to wait for electrolyte correction. 07/20 Sodium correcting at appropriate rate up until 1 am, next set of labs are pending. Still hypokalemic and receiving replacement. Patient recalls being told she had hyponatremia in the past but says last outpatient labs were a year ago. Says she eats very little, just a little fruit here and there. 07/21 Reports no significant pain. Alert, no headache. 07/22: Resting comfortably in bed in no acute distress. Pain controlled. Plan for or today for definitive treatment Subjective: 07/23: Status post right hip treatment of intertrochanteric fracture with intramedullary nail secondary to right hip basicervical intertrochanteric fracture by Dr. Bradley 07/22. Sodiums have remained relatively stable. 135 likely outlet. Neurologically intact. We'll start on low-dose furosemide along with sodium tablets in attempt to slowly increase sodium lobes. Consider V2 antagonist if unsuccessful. Neurologically intact. Left poorly overnight. Denies pain. Objective Vital Signs Date Time Temp Pulse Resp B/P (MAP) Pulse Ox O2 Delivery O2 Flow Rate FiO2 07/23/17 06:00 85 07/23/17 04:00 97.9 21 146/69 (94) 100 07/22/17 21:03 21 07/22/17 19:00 Room Air 07/22/17 16:06 2.00 Intake and Output 07/23/17 07/23/17 07/24/17 08:00 16:00 00:00 Intake Total 820 ml Output Total 600 ml Balance 220 ml Result Diagram: 07/23/17 0457 07/23/17 0457 Imaging Last Impressions Hip X-Ray 07/22/17 0000 Signed Impressions: Service Date/Time: Saturday, July 22, 2017 08:23 - CONCLUSION: Anatomic alignment Andrea Akers MD FACR Chest X-Ray 07/19/17 1231 Signed Impressions: Service Date/Time: June 13:11 - CONCLUSION: Normal examination. 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 Jak Camacho MD Objective Remarks GENERAL: 82-year-old female, appears stated age currently resting in bed in no acute distress SKIN: Warm and dry. Well perfused HEAD: Atraumatic. Normocephalic. EYES: Pupils equal and round about 3 mm bilaterally and reactive. No scleral icterus. No injection or drainage. ENT: No nasal bleeding or discharge. Mucous membranes pink and moist. NECK: Trachea midline. No JVD. CARDIOVASCULAR: Regular rate and rhythm, S1, S2. No S4. Without murmurs, clicks, gallops or rubs. RESPIRATORY: Clear to auscultation bilaterally without wheezes rales or rhonchi GASTROINTESTINAL: Abdomen soft, non-tender, nondistended. Normoactive Bowel sounds present. MUSCULOSKELETAL: Extremities without significant peripheral edema. 2 bandages over lateral aspect of right lower extremity without erythema. Dorsalis pedis in posterior tenderness are palpable bilaterally. Warm. NEUROLOGICAL: Awake and alert. Cranial nerves II through XII grossly intact. Strength appears equal and symmetric. Normal sensation. A/P Assessment and Plan NEURO/PSYCH: Acute Pain management Acetaminophen 650 mg every 6 hours when necessary pain 1-5 Hydrocodone/acetaminophen 11/6024 1 tablet every 6 hours when necessary pain 6-10 Morphine sulfate 2 mg IV every 3 hours when necessary pain 6-10/breakthrough pain RESP: h/o Tobacco abuse - short term, 2 years about 40 years ago Currently on room air. Nasal cannula if indicated to maintain saturations greater than equal to 92% Incentive spirometry every hour while awake CV: SVT (resolved) History of Hypertension SVT likely secondary to hypomagnesemia and hypokalemia. Troponin negative 2-D echo ejection fraction 55-60%. Pulmonary arterial pressure 38 mmHg. 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 Docusate sodium/senna 100 mg S8.6 milligrams 1 tablet twice a day for bowel regimen Currently holding esomeprazole 40 mg daily/home medication light of possible SIADH patient currently asymptomatic FEN/RENAL: Hypoosmolar euvolemic hyponatremia Hypomagnesemia Traore is in place. Monitor intake and output. Monitor electrolytes and replacing K and Mag. 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 Urine OSM 320 TSH 11.2. Normal T4/T3. Cortisol 17. Uric acid 2.6. Pending renin/aldosterone ACTH. Continue fluid restrict to 1000 mL. sodium chloride 1 g 5 times daily Monitor sodium q6 hours. Avoid correction of sodium >130 over the following 24 hours. Start on low dose furosemide 1. Consider starting low-dose demeclocycline versus V2 antagonist to increase free water excretion 2% saline at 20 cc an hour 1 day then discontinue. ID: Monitor for signs and symptoms of infection Received cefazolin 1 g IV every 6 hours 3 dosages. Completed postoperative antibiotics HEME: Normocytic normochromic anemia Monitor CBC daily ENDO: Elevated TSH Euglycemic. TSH elevated at 11.2 with normal T3/T4. Initiated levothyroxine 25 mcg po daily for subclinical hypothyroid. Sliding-scale insulin only if indicated to maintain euglycemia MSK: Status post right hip treatment of intertrochanteric fracture with intramedullary nail secondary to right hip basicervical intertrochanteric fracture by Dr. Bradley 07/[address] Bradley PROPH: SCDs for DVT prophylaxis. Enoxaparin 40 mg subcutaneous daily 10 days for DVT prophylaxis ACCESS: PIV Level 2 followup. Doni Luna MD Jul 23, 2017 07:22
[2017-07-23] MEDS: POLYETHYLENE GLYCOL 17 GM PKG PO SCH (08:33)
[2017-07-23] MEDS: SODIUM CHLORIDE 0.9% FLUSH 10 ML FLUSH IV FLUSH SCH ×2 (08:33→21:00)
[2017-07-23] MEDS: ENOXAPARIN SODIUM 40 MG/0.4 ML SYRINGE SQ SCH (08:33)
[2017-07-23] MEDS: MAGNESIUM SULFATE 1 GM PREMIX 100 ML IV SCH ×3 (08:34→15:03)
[2017-07-23] MEDS: DOCUSATE SODIUM 50 MG/SENNA 8.6 MG TAB PO SCH ×2 (10:40→21:23)
--- NOTE | 2017-07-23 14:14 | PD.ORT.PN ---
Subjective Subjective Remarks no new issues. No CP/SOB Objective Vitals Vital Signs Date Time Temp Pulse Resp B/P (MAP) Pulse Ox O2 Delivery O2 Flow Rate FiO2 07/23/17 08:00 98.1 84 26 124/61 (82) 100 07/23/17 08:00 100 Room Air 07/23/17 08:00 84 07/23/17 07:22 99 21 07/23/17 06:00 85 07/23/17 04:00 97.9 83 21 146/69 (94) 100 07/23/17 04:00 83 07/23/17 02:00 73 07/23/17 00:00 97.6 90 20 125/73 (90) 100 07/23/17 00:00 90 07/22/17 22:00 80 07/22/17 21:03 100 21 07/22/17 20:00 96.4 86 22 131/84 (100) 100 07/22/17 20:00 86 07/22/17 19:00 100 Room Air 07/22/17 18:00 90 07/22/17 16:06 100 Nasal Cannula 2.00 07/22/17 16:00 98.0 79 14 114/65 (81) 95 07/22/17 16:00 80 I/O 07/22/17 07/22/17 07/22/17 07/23/17 07/23/17 07/23/17 07:00 15:00 23:00 07:00 15:00 23:00 Intake Total 240 ml 1100 ml 600 ml 820 ml Output Total 550 ml 175 ml 230 ml 600 ml Balance -310 ml 925 ml 370 ml 220 ml Intake Oral 240 ml 500 ml 720 ml IV Total 500 ml 100 ml 100 ml Other 600 ml Output Urine Total 550 ml 125 ml 230 ml 600 ml Estimated Blood Loss 50 ml # Bowel Movements 0 Result Diagram: 07/23/17 0457 07/23/17 1155 Imaging Last 24 hours Impressions Chest X-Ray 07/19/17 1231 Signed Impressions: Service Date/Time: June 13:11 - CONCLUSION: Normal examination. 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 Jak Camacho MD Objective Remarks NAD Pulmonary: Normal respiratory effort. Right lower extremity: Neurovascularly intact, +EHL/FHL, dressing clean, dry and intact. + PT/DP pulses. Supple compartments. Negative Homans sign. Assessment & Plan Assessment and Plan POD #1: Right hip IMN for intertrochanteric fracture No issues. no CP/SOB. 1. TTWB RLE 2. Lovenox followed by ASA for DVT prophylaxis 3. Ice to the right hip PRN 4. Anticipatory discharge to SNF 5. F/U in the office in 1-[address] Bradley or RAMSEY Alvarado Antony Jr. MD Jul 23, 2017 14:14
[2017-07-23 19:27] LABS: POTASSIUM 3.6 MEQ/L (3.5-5.1)
[2017-07-23] MEDS ORDERED: DOCUSATE SODIUM 100 MG CAP PO SCH (21:00)
[2017-07-23] MEDS: MULTIVITAMINS/MINERALS THERAPEUTIC TAB PO SCH (21:23)
[2017-07-24] VITALS (12 sets, daily range): BP systolic 107–152; BP diastolic 55–69; PULSE 72–100; RESP 10–17; TEMP 96.7–98.6; O2SAT 94–100
[2017-07-24] MEDS: POLYETHYLENE GLYCOL 17 GM PKG PO SCH ×3 (00:25→20:34)
[2017-07-24] MEDS: MORPHINE SULFATE 2 MG/ML INJ IV PUSH PRN (02:33)
[2017-07-24] MEDS: ACETAMINOPHEN/HYDROcodone 325 MG/5 MG TAB PO PRN ×2 (02:51→13:52)
[2017-07-24] MEDS: CHLORHEXIDINE GLUCONATE 2 % 1 PACK (2 CLOTHS) TOP SCH ×2 (04:00→20:40)
[2017-07-24] MEDS: SODIUM CHLORIDE 1 GRAM TAB PO SCH (05:38)
[2017-07-24] MEDS: LEVOTHYROXINE SODIUM 25 MCG TAB PO SCH (05:56)
[2017-07-24] MEDS: MULTIVITAMINS/MINERALS THERAPEUTIC TAB PO SCH ×2 (08:38→20:35)
[2017-07-24] MEDS: DOCUSATE SODIUM 50 MG/SENNA 8.6 MG TAB PO SCH ×2 (08:38→20:35)
[2017-07-24] MEDS: ENOXAPARIN SODIUM 40 MG/0.4 ML SYRINGE SQ SCH (08:38)
[2017-07-24] MEDS: SODIUM CHLORIDE 0.9% FLUSH 10 ML FLUSH IV FLUSH SCH ×2 (08:39→20:40)
[2017-07-24] MEDS: amLODIPine BESYLATE 5 MG TAB PO SCH ×2 (09:00→13:10)
--- NOTE | 2017-07-24 09:14 | HHI.CCPN ---
Subjective Remarks/Hospital Course Completely lucid and oriented 82 y/o woman brought to ED by EMS 3 days following a fall at home. She slid off a rolling chair and landed on her buttocks. Refused to come to ED earlier. Episode SVT at scene. Na 113, K 2.7, Mag 0.8 on arrival. BUN 6. Obviously well hydrated and hyponatremia probably chronic. She received 2,500 mls NS in ED and CCM concerned about over- correction. We'll check sodium q4h and start DDAVP for Na > 120. May need D5W iv. Correct lytes, check cardiac markers. She has no chest pain or SOB and is O X 3 and alert. Hip fracture will need to wait for electrolyte correction. 07/20 Sodium correcting at appropriate rate up until 1 am, next set of labs are pending. Still hypokalemic and receiving replacement. Patient recalls being told she had hyponatremia in the past but says last outpatient labs were a year ago. Says she eats very little, just a little fruit here and there. 07/21 Reports no significant pain. Alert, no headache. 07/22: Resting comfortably in bed in no acute distress. Pain controlled. Plan for or today for definitive treatment 07/23: Status post right hip treatment of intertrochanteric fracture with intramedullary nail secondary to right hip basicervical intertrochanteric fracture by Dr. Bradley 07/22. Sodiums have remained relatively stable. 135 likely outlet. Neurologically intact. We'll start on low-dose furosemide along with sodium tablets in attempt to slowly increase sodium lobes. Consider V2 antagonist if unsuccessful. Neurologically intact. Left poorly overnight. Denies pain. Subjective: 07/24: Sodium currently 1:30. Neurologically intact. Hemoglobin stable. Tolerating diet. Denies pain. Objective Vital Signs Date Time Temp Pulse Resp B/P (MAP) Pulse Ox O2 Delivery O2 Flow Rate FiO2 07/24/17 07:32 100 21 07/24/17 06:00 72 07/24/17 04:00 98.0 17 133/64 (87) 07/23/17 19:00 Room Air 07/22/17 16:06 2.00 Intake and Output 07/24/17 07/24/17 07/25/17 08:00 16:00 00:00 Intake Total 480 ml Output Total 1800 ml Balance -1320 ml Result Diagram: 07/23/17 0457 07/24/17 0039 Imaging Last Impressions Hip X-Ray 07/22/17 0000 Signed Impressions: Service Date/Time: Saturday, July 22, 2017 08:23 - CONCLUSION: Anatomic alignment Andrea Akers MD FACR Chest X-Ray 07/19/17 1231 Signed Impressions: Service Date/Time: June 13:11 - CONCLUSION: Normal examination. 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 Jak Camacho MD Objective Remarks GENERAL: 82-year-old female, appears stated age currently resting in bed in no acute distress on room air SKIN: Warm and dry. Well perfused HEAD: Atraumatic. Normocephalic. EYES: Pupils equal and round about 3 mm bilaterally and reactive. No scleral icterus. No injection or drainage. ENT: No nasal bleeding or discharge. Mucous membranes pink and moist. NECK: Trachea midline. No JVD. CARDIOVASCULAR: Regular rate and rhythm, S1, S2. No S4. Without murmurs, clicks, gallops or rubs. RESPIRATORY: Clear to auscultation bilaterally without wheezes rales or rhonchi GASTROINTESTINAL: Abdomen soft, non-tender, nondistended. Normoactive Bowel sounds present. MUSCULOSKELETAL: Extremities without significant peripheral edema. 2 bandages over lateral aspect of right lower extremity without erythema. Dorsalis pedis in posterior tenderness are palpable bilaterally. Warm. NEUROLOGICAL: Awake and alert. Cranial nerves II through XII grossly intact. Strength appears equal and symmetric. Normal sensation. A/P Assessment and Plan NEURO/PSYCH: Acute Pain management Acetaminophen 650 mg every 6 hours when necessary pain 1-5 Hydrocodone/acetaminophen 5/325 1 to 2 tablet every 6 hours when necessary pain 1 through 10 Morphine sulfate 2 mg IV every 3 hours when necessary pain 6-10/breakthrough pain RESP: h/o Tobacco abuse - short term, 2 years about 40 years ago Currently on room air. Nasal cannula if indicated to maintain saturations greater than equal to 92% Incentive spirometry every hour while awake CV: SVT (resolved) History of Hypertension SVT likely secondary to hypomagnesemia and hypokalemia. Troponin negative 2-D echo ejection fraction 55-60%. Pulmonary arterial pressure 38 mmHg. 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 Docusate sodium/senna 100 mg/8.6 milligrams 1 tablet twice a day for bowel regimen. Add polyethylene glycol 17 g twice a day Currently holding esomeprazole 40 mg daily/home medication light of possible SIADH patient currently asymptomatic FEN/RENAL: Hypoosmolar euvolemic hyponatremia Sodium much improved. Currently [address] Received furosemide yesterday Monitor intake and output. Monitor electrolytes and replacing K and Mag. 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 Urine OSM 320 TSH 11.2. Normal T4/T3. Cortisol 17. Uric acid 2.6. Pending renin/aldosterone ACTH. Continue fluid restrict to 1000 mL. sodium chloride 1 g 5 times daily to be held today Monitor sodium q6 hours. Avoid correction of sodium >130 over the following 24 hours. Start on low dose furosemide 1 07/24. Consider starting low-dose demeclocycline versus V2 antagonist to increase free water excretion if unresponsive. 2% saline at 20 cc an hour 1 day then discontinue. ID: Monitor for signs and symptoms of infection Received cefazolin 1 g IV every 6 hours 3 dosages. Completed postoperative antibiotics HEME: Macrocytic anemia Monitor CBC daily No indication for transfusion of blood product at this time ENDO: Elevated TSH Euglycemic. TSH elevated at 11.2 with normal T3/T4. Initiated levothyroxine 25 mcg po daily for subclinical hypothyroid. Sliding-scale insulin only if indicated to maintain euglycemia MSK: Status post right hip treatment of intertrochanteric fracture with intramedullary nail secondary to right hip basicervical intertrochanteric fracture by Dr. Bradley 07/[address] Bradley PROPH: SCDs for DVT prophylaxis. Enoxaparin 40 mg subcutaneous daily 10 days for DVT prophylaxis ACCESS: PIV Level 2 followup. Patient remained stable sodium, okay to transfer to orthopedic floor today. We 'll consult hospitalist at that time for [place] of care 07/25 Doni Luna MD Jul 24, 2017 09:14
[2017-07-24 11:43] LABS: HEMATOCRIT 26.2 % (35.0-46.0); MEAN CELL VOLUME 104.6 FL (80.0-100.0); MEAN CORPUSCULAR HEMOGLOBIN 36.6 PG (27.0-34.0); PLATELET COUNT 381 TH/MM3 (150-450); RED CELL DISTRIBUTION WIDTH 14.1 % (11.6-17.2); REVIEW FLAG FINAL; WHITE BLOOD COUNT 8.9 TH/MM3 (4.0-11.0)
[2017-07-24 12:10] LABS: MAGNESIUM 1.7 MG/DL (1.5-2.5); POTASSIUM 3.2 MEQ/L (3.5-5.1)
[2017-07-24] MEDS ORDERED: MAGNESIUM OXIDE 400 MG TAB PO ONE (12:30)
[2017-07-24] MEDS: POTASSIUM CHLORIDE 10 MEQ CONTROLLED RELEASE TAB PO SCH ×2 (12:35→20:35)
[2017-07-24] MEDS: MAGNESIUM SULFATE 1 GM PREMIX 100 ML IV SCH ×2 (12:36→14:37)
--- NOTE | 2017-07-24 15:22 | PD.ORT.PN ---
Subjective Post Op Day #: 2 Subjective Remarks Patient sitting up in bed working on puzzles. Patient denies any pain. Patient states she is wanting to go home with home health. Objective Vitals Vital Signs Date Time Temp Pulse Resp B/P (MAP) Pulse Ox O2 Delivery O2 Flow Rate FiO2 07/24/17 14:00 91 07/24/17 12:00 98.3 90 13 107/55 (72) 100 07/24/17 12:00 90 07/24/17 10:00 100 07/24/17 08:00 78 07/24/17 08:00 98.6 77 14 152/69 (96) 99 07/24/17 07:32 100 21 07/24/17 07:00 99 Room Air 07/24/17 06:00 72 07/24/17 04:00 98.0 73 17 133/64 (87) 97 07/24/17 04:00 79 07/24/17 02:00 72 07/24/17 00:00 74 07/24/17 00:00 98.3 74 10 123/61 (81) 98 07/23/17 22:00 80 07/23/17 20:40 100 21 07/23/17 20:00 82 07/23/17 20:00 98.3 82 26 137/70 (92) 100 07/23/17 19:00 98 Room Air 07/23/17 18:00 99 07/23/17 16:00 98.2 90 26 132/61 (84) 99 07/23/17 16:00 78 I/O 07/23/17 07/23/17 07/23/17 07/24/17 07/24/17 07/24/17 07:00 15:00 23:00 07:00 15:00 23:00 Intake Total 820 ml 750 ml 480 ml 378 ml Output Total 600 ml 900 ml 1800 ml Balance 220 ml -150 ml -1320 ml 378 ml Intake Oral 720 ml 750 ml 480 ml IV Total 100 ml 378 ml Output Urine Total 600 ml 900 ml 1800 ml Stool Total 0 ml 0 ml Result Diagram: 07/24/17 1130 07/24/17 1130 Imaging Last 24 hours Impressions Chest X-Ray 07/19/17 1231 Signed Impressions: Service Date/Time: June 13:11 - CONCLUSION: Normal examination. 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 Jak Camacho MD Objective Remarks NAD Pulmonary: Normal respiratory effort. Right lower extremity: Neurovascularly intact, +EHL/TA/G, dressing clean, dry and intact. + PT/DP pulses. Supple compartments. Negative Homans sign. Assessment & Plan Ortho Post Op Day #: 2 Problem List: Assessment and Plan POD #2: Right hip IMN for intertrochanteric fracture No issues. no CP/SOB. 1. TTWB RLE 2. Lovenox followed by ASA for DVT prophylaxis 3. Ice to the right hip PRN 4. Anticipatory discharge to SNF 5. F/U in the office in 1-[address] Bradley or RAMSEY Alvarado 6. Will be downgraded to med-surg floor today Bethel Morales Jul 24, 2017 15:22
[2017-07-25 00:03] VITALS: BP 133/69; PULSE 83; RESP 17; TEMP 98.2; O2SAT 98
[2017-07-25] MEDS: ACETAMINOPHEN/HYDROcodone 325 MG/5 MG TAB PO PRN ×3 (02:03→13:00)
[2017-07-25 04:02] LABS: HEMATOCRIT 23.6 % (35.0-46.0); MEAN CELL VOLUME 103.5 FL (80.0-100.0); MEAN CORPUSCULAR HEMOGLOBIN 35.3 PG (27.0-34.0); MEAN CORPUSCULAR HGB CONC 34.1 % (32.0-36.0); PLATELET COUNT 344 TH/MM3 (150-450); RED BLOOD COUNT 2.28 MIL/MM3 (4.00-5.30); REVIEW FLAG FINAL; WHITE BLOOD COUNT 6.8 TH/MM3 (4.0-11.0)
[2017-07-25 04:20] LABS: BICARBONATE 29.3 MEQ/L (21.0-32.0); MAGNESIUM 1.9 MG/DL (1.5-2.5); POTASSIUM 4.3 MEQ/L (3.5-5.1)
[2017-07-25 04:45] VITALS: BP 134/76; PULSE 80; RESP 18; TEMP 98.1; O2SAT 97
[2017-07-25] MEDS: LEVOTHYROXINE SODIUM 25 MCG TAB PO SCH (05:38)
[2017-07-25] MEDS: SODIUM CHLORIDE 1 GRAM TAB PO SCH ×2 (05:38→13:00)
[2017-07-25 07:37] VITALS: BP 144/69; PULSE 78; RESP 19; TEMP 97.6; O2SAT 96
[2017-07-25] MEDS: POTASSIUM CHLORIDE 10 MEQ CONTROLLED RELEASE TAB PO SCH (09:03)
[2017-07-25] MEDS: ENOXAPARIN SODIUM 40 MG/0.4 ML SYRINGE SQ SCH (09:03)
[2017-07-25] MEDS: DOCUSATE SODIUM 50 MG/SENNA 8.6 MG TAB PO SCH (09:04)
[2017-07-25] MEDS: MULTIVITAMINS/MINERALS THERAPEUTIC TAB PO SCH (09:04)
[2017-07-25] MEDS: POLYETHYLENE GLYCOL 17 GM PKG PO SCH (09:05)
[2017-07-25] MEDS: SODIUM CHLORIDE 0.9% FLUSH 10 ML FLUSH IV FLUSH SCH (09:10)
--- NOTE | 2017-07-25 11:12 | HHI.DCPOC ---
Discharge Care Plan Diagnosis: (1) Closed fracture of right hip (2) Hyponatremia Goals to Promote Your Health * To prevent worsening of your condition and complications * To maintain your health at the optimal level Directions to Meet Your Goals Take your medications as prescribed Follow your dietary instruction Follow activity as directed Keep your appointments as scheduled Take your immunizations and boosters as scheduled If your symptoms worsen call your PCP, if no PCP go to Urgent Care Center or Emergency Room Smoking is Dangerous to Your Health. Avoid second hand smoke Call the 24-hour hour crisis hotline for domestic abuse at Sharon Weller MD Jul 25, 2017 11:12
--- NOTE | 2017-07-25 11:15 | HHI.DS ---
cc: Esteban Spears MD Discharge Summary Admission Date Jul 19, 2017 at 15:04 Discharge Date: Jul 25, 2017 Admitting Diagnosis fracture right hip, hyponatremia, hypokalemia, runs of SVT (1) Closed fracture of right hip ICD Code: S72.001A - Fracture of unspecified part of neck of right femur, initial encounter for closed fracture Diagnosis: Principal Status: Acute (2) Hyponatremia ICD Code: E87.1 - Hypo-osmolality and hyponatremia Diagnosis: Principal Status: Chronic (3) Hypokalemia ICD Code: E87.6 - Hypokalemia Diagnosis: Principal Status: Chronic (4) Paroxysmal SVT (supraventricular tachycardia) ICD Code: I47.1 - Supraventricular tachycardia Diagnosis: Principal Status: Resolved (5) Hypomagnesemia ICD Code: E83.42 - Hypomagnesemia Diagnosis: Principal Procedures Right hip nailing Brief History - From Admission Completely lucid and oriented 82 y/o woman brought to ED by EMS 3 days following a fall at home. She slid off a rolling chair and landed on her butt. Refused to come to ED earlier. Episode SVT at scene. Na 113, K 2.7, Mag 0.8 on arrival. BUN 6. Obviously well hydrated and hyponatremia probably chronic. She received 2,500 mls NS in ED was admitted to the ICU. We'll check sodium q4h and start DDAVP for Na > 120. May need D5W iv. Correct lytes, check cardiac markers. She has no chest pain or SOB and is O X 3 and alert. Hip fracture will need to wait for electrolyte correction. CBC/BMP: 07/25/17 0339 07/25/17 0339 Significant Findings Laboratory Tests Test 07/22/17 18:00 07/22/17 21:24 07/22/17 22:56 07/23/17 04:57 Sodium Level 135 MEQ/L (136-145) 122 MEQ/L (136-145) 122 MEQ/L (136-145) 122 MEQ/L (136-145) Red Blood Count 2.54 MIL/MM3 (4.00-5.30) Hemoglobin 9.0 GM/DL (11.6-15.3) Hematocrit 26.4 % (35.0-46.0) Mean Corpuscular Volume 103.8 FL (80.0-100.0) Mean Corpuscular Hemoglobin 35.6 PG (27.0-34.0) Neutrophils (%) (Auto) 87.0 % (16.0-70.0) Lymphocytes (%) (Auto) 3.0 % (9.0-44.0) Monocytes (%) (Auto) 9.6 % (0.0-8.0) Lymphocytes # (Auto) 0.3 TH/MM3 (1.0-4.8) Blood Urea Nitrogen 6 MG/DL (7-18) Random Glucose 133 MG/DL (74-106) Albumin 2.7 GM/DL (3.4-5.0) Chloride Level 89 MEQ/L (98-107) Test 07/23/17 11:55 07/23/17 18:31 07/24/17 00:39 07/24/17 11:30 Sodium Level 124 MEQ/L (136-145) 126 MEQ/L (136-145) 130 MEQ/L (136-145) 131 MEQ/L (136-145) Red Blood Count 2.50 MIL/MM3 (4.00-5.30) Hemoglobin 9.2 GM/DL (11.6-15.3) Hematocrit 26.2 % (35.0-46.0) Mean Corpuscular Volume 104.6 FL (80.0-100.0) Mean Corpuscular Hemoglobin 36.6 PG (27.0-34.0) Mean Platelet Volume 6.7 FL (7.0-11.0) Blood Urea Nitrogen 4 MG/DL (7-18) Creatinine 0.48 MG/DL (0.50-1.00) Potassium Level 3.2 MEQ/L (3.5-5.1) Chloride Level 95 MEQ/L (98-107) Test 07/24/17 21:05 07/25/17 03:39 Sodium Level 127 MEQ/L (136-145) 129 MEQ/L (136-145) Red Blood Count 2.28 MIL/MM3 (4.00-5.30) Hemoglobin 8.1 GM/DL (11.6-15.3) Hematocrit 23.6 % (35.0-46.0) Mean Corpuscular Volume 103.5 FL (80.0-100.0) Mean Corpuscular Hemoglobin 35.3 PG (27.0-34.0) Mean Platelet Volume 6.6 FL (7.0-11.0) Blood Urea Nitrogen 6 MG/DL (7-18) Creatinine 0.41 MG/DL (0.50-1.00) Calcium Level 8.4 MG/DL (8.5-10.1) Chloride Level 96 MEQ/L (98-107) Imaging Last Impressions Hip X-Ray 07/22/17 0000 Signed Impressions: Service Date/Time: Saturday, July 22, 2017 08:23 - CONCLUSION: Anatomic alignment Andrea Akers MD FACR Chest X-Ray 07/19/17 1231 Signed Impressions: Service Date/Time: June 13:11 - CONCLUSION: Normal examination. 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 Jak Camacho MD PE at Discharge GENERAL: This is a well-nourished, well-developed patient, in no apparent distress. CARDIOVASCULAR: Regular rate and rhythm without murmurs, gallops, or rubs. RESPIRATORY: Clear to auscultation. Breath sounds equal bilaterally. No wheezes , rales, or rhonchi. GASTROINTESTINAL: Abdomen soft, non-tender, nondistended. Normal active bowel sounds MUSCULOSKELETAL: Extremities without clubbing, cyanosis, or edema. NEURO: Alert & Oriented x4 to person, place, time, situation. Moves all ext x4 Pt update on day of discharge Patient doing well. Discharge plans discussed with patient and nursing Hospital Course Patient was admitted to the ICU after electrolytes were corrected. She then had the hip nailing. She did well and was discharged to inpatient rehabilitation Her sodium was corrected to reasonable range given her long-term history of low sodium Pt Condition on Discharge: Good Discharge Disposition: Rehab Inpatient Discharge Time: > 30 minutes Discharge Instructions DIET: Follow Instructions for: As Tolerated, No Restrictions Activities you can perform: Toe Touch Weight Bearing, Shower Only-No Bath Activities to Avoid: Weight Bearing, Prolonged Standing, Strenuous Activity, Bathing, Driving Follow up Referrals: Appointment for Follow Up Orthopedics with Rashid Bradley MD New Medications: Aspirin DR (Ecotrin Regular Strength) 325 Mg Tabdr 325 MG PO DAILY for Prevent Blood Clot, #30 TAB 0 Refills Start Aspirin after Lovenox is completed. Commode 3-in-1 (Commode 3-in-1) 1 Mis Mis EA .ROUTE DIRECTED, #1 0 Refills Enoxaparin Inj (Enoxaparin Inj) 40 Mg/0.4 Ml Syr 40 MG SQ DAILY for Blood Clot Prevention, #10 SYRINGE 0 Refills Start Aspirin after Lovenox is completed. Hydrocodone-Acetaminophen ([place]) 5 Mg-325 Mg Tab 1-2 TAB PO Q4H PRN for PAIN, #40 TAB 0 Refills Walker with Front Wheels (Walker with Front Wheels) 1 Mis Mis EA .ROUTE DIRECTED, #1 0 Refills Continued Medications: Amlodipine (Amlodipine) 10 Mg Tab 10 MG PO DAILY for Blood Pressure Management, #30 TAB [address] (Nexium) 20 Mg Capdr 20 MG PO DAILY, CAP 0 Refills Lisinopril (Lisinopril) 20 Mg Tab 20 MG PO DAILY, #30 TAB 0 Refills Discontinued Medications: Amlodipine (Amlodipine) 2.5 Mg Tab 2.5 MG PO DAILY for Blood Pressure Management, #30 TAB [address] (Nexium) 40 Mg Capdr 40 MG PO DAILY, CAP 0 Refills Lisinopril (Lisinopril) 2.5 Mg Tab 2.5 MG PO DAILY, #30 TAB 0 Refills Sharon Weller MD Jul 25, 2017 11:15
[2017-07-25 11:26] VITALS: BP 137/69; PULSE 83; RESP 19; TEMP 97.8; O2SAT 99
== END 2017-07-25 14:13 | DRG 481 ==
LOC: NEPC 11:58 → NEDA 15:04 → N03B 16:36 → N06A 07-24 17:14 → N06B 07-25 04:19 → N06A 07-25 04:20
PROVIDERS: ADMIT Hospitalist; ATTEND Hospitalist
PROC: 0QS606Z Reposition Right Upper Femur with Intramedullary Internal Fixation Device, Open Approach (ICD-10-PCS; principal; 2017-07-22 07:50)
DX: S72.143A Displaced intertrochanteric fracture of unspecified femur, initial encounter for closed fracture (principal); E87.1 Hypo-osmolality and hyponatremia; E22.2 Syndrome of inappropriate secretion of antidiuretic hormone; I47.1 Supraventricular tachycardia; D53.9 Nutritional anemia, unspecified; I10 Essential (primary) hypertension; E83.42 Hypomagnesemia; E87.6 Hypokalemia; W07.XXXA Fall from chair, initial encounter; Y92.009 Unspecified place in unspecified non-institutional (private) residence as the place of occurrence of the external cause; K21.9 Gastro-esophageal reflux disease without esophagitis; E03.9 Hypothyroidism, unspecified; K44.9 Diaphragmatic hernia without obstruction or gangrene; Z23 Encounter for immunization; Z87.891 Personal history of nicotine dependence
CPT/HCPCS: 71010; 73502; 76000; 76937; 80048; 80053; 82024; 82088; 82533; 82550; 82552; 82948; 83735; 83930; 83935; 84100; 84132; 84244; 84295; 84439; 84443; 84481; 84484; 84550; 85025; 85027; 85610; 85730; 87641; 90686; 93005; 93306; 94150; 96361; 96374; C1713; J0131; J0690; J1580; J1644; J1650; J1940; J2270; J3370; J3475; J3480; J7030; J7050; Q2038

== ENCOUNTER 2018-04-05 12:02 | Inpatient (IN) ==
[2018-04-05] MEDS ORDERED: Sod Chloride 0.9% Inj 1,000 ML IV.SIG SCH (12:30)
--- NOTE | 2018-04-05 12:32 | ED ---
HPI General Chief complaint: Nausea/Vomiting/Diarrhea Stated complaint: Confusion Time Seen by Provider: 04/05/18 12:06 Source: patient and EMS Mode of arrival: EMS Limitations: no limitations History of Present Illness HPI narrative: Patient is a 83-year-old female presenting to the emergency department for evaluation of bilateral hand cramping. Patient states that she can only open her hands manually. This started 2-3 days ago. Patient reports 1 loose stool daily, as well as a decreased appetite. She denies any shortness of breath, chest pain, nausea, vomiting, dizziness. Patient states she is on a fluid restriction due to having low sodium levels. She does state that she has not taken her sodium medication. She denies any recent falls. Symptom onset was gradual, symptoms are moderate in nature. Unknown exacerbating factors, no alleviating factors. Past medical history is significant for electrolyte abnormalities, paroxysmal SVT, hypertension, hypothyroidism, patient is currently on aspirin therapy. Onset (ago): day(s) Location: upper extremity (Bilateral hands) Severity: moderate Severity scale (1-10): 5 Quality: other (Cramping) Pain Consistency: constant Relieving factors: none Exacerbating factors: none Associated symptoms: loss of appetite Related Data Home Medications Medication Instructions Recorded Confirmed amlodipine 5 mg PO DAILY 04/05/18 04/05/18 esomeprazole magnesium [Nexium] 20 mg PO DAILY 04/05/18 04/05/18 hydrocodone-acetaminophen 1 tab PO Q6H PRN 04/05/18 04/05/18 levothyroxine 25 mcg PO DAILY 04/05/18 04/05/18 magnesium oxide 400 mg PO BID 04/05/18 04/05/18 sodium chloride 1 tab PO TID 04/05/18 04/05/18 Allergies Allergy/AdvReac Type Severity Reaction Status Date / Time lactose Allergy Unknown Verified 07/25/17 15:24 No Known Allergies Allergy Unknown Uncoded 07/25/17 15:24 Review of Systems ROS: all other systems reviewed are negative PMFSH History History 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 Presenting in no acute distress. SKIN: Focused skin assessment warm/dry. HEAD: Atraumatic. Normocephalic. EYES: Pupils equal and round. No scleral icterus. No injection or drainage. Conjunctiva pallor. ENT: No nasal bleeding or discharge. Mucous membranes pink and moist. NECK: Trachea midline. No JVD. CARDIOVASCULAR: Tachycardic. No murmur appreciated. RESPIRATORY: No accessory muscle use. Clear to auscultation. Breath sounds equal bilaterally. GASTROINTESTINAL: Abdomen soft, non-tender, nondistended. Hepatic and splenic margins not palpable. MUSCULOSKELETAL: No obvious deformities. No clubbing. No cyanosis. No edema. Bilateral hand contractures NEUROLOGICAL: Awake and alert. No obvious cranial nerve deficits. Motor grossly within normal limits. Normal speech. PSYCHIATRIC: Appropriate mood and affect; insight and judgment normal. Course Initial Documented Vital Signs Temperature 99.1 F 04/05/18 12:08 Pulse Rate 109 H 04/05/18 12:08 Respiratory Rate 20 04/05/18 12:08 Blood Pressure 114/77 04/05/18 12:08 Pulse Oximetry 100 04/05/18 12:08 Last Documented Vital Signs Temperature 99.1 F 04/05/18 12:08 Pulse Rate 109 H 04/05/18 12:08 Respiratory Rate 20 04/05/18 12:08 Blood Pressure 114/77 04/05/18 12:08 Pulse Oximetry 100 04/05/18 13:00 Medical Decision Making CAMILLE Attestation CAMILLE supervised visit: Yes Attestation: I, Dr. Sandoval, have reviewed the advance practice practitioner's documentation and am in agreement, met with the patient face to face, made the diagnosis, and the medical decision making was done by me. *My assessment and Findings: Patient with cramping to bilateral hands for the past 2-3 days- this is most likely due to electrolyte imbalance as she does have history of hyponatremia. In addition, patient reports that she has been having diarrhea with decreased po intake for the past week Patient's abdominal exam is benign, she does have a white blood cell count of 15.5, her urine does show signs of infection. Patient with a urinary tract infection, she will be given dose of IV Rocephin. BMP is currently pending. Patient did receive IV fluids while in the emergency room, she is able to open and close her hands with less difficulty now. Patient with a magnesium 0.4 and a calcium of less than 5 - she will be given IV mag as well as IV calcium gluconate MDM Narrative Medical decision making narrative: Patient is an 83-year-old female presenting for evaluation of muscle cramping and contractures. Patient is tachycardic on arrival, EKG shows sinus tachycardia. Patient is otherwise well-appearing. Labs and imaging ordered and pending. At 1315 patient's family member came to desk and stated patient did not feel well and felt as if she was going to pass out. Patient was assessed, her heart rate was 226 on bus driver/monitor and tachycardic on palpation. Patient was asked to bear down, after she did this heart rate trended down to 106. Patient reported that she feels better. Urinalysis is consistent with a urinary tract infection, reflex culture is pending. Rocephin 2 g IV ordered 1 dose. CBC with a white count of 15.5 with left shift. Calcium level less than 5, calcium gluconate IV ordered. Magnesium resulted at 0.4, 2g IV ordered. Na+130 K+ 3.4, oral replacement ordered. Pt will be admitted to medicine. Pt and family aware of findings and plan of care. Dr. Rowell accepted admit after speaking with my attending physician. Pt has not had any further episodes of SVT. Medical Screen Exam Complete: Yes Emergency Medical Condition: Yes Medical Records Medical records reviewed: Yes I reviewed the patient's medical records. Lab Data Result diagrams: 04/05/18 12:25 04/05/18 12:25 Lab Results 04/05/18 04/05/18 04/05/18 Range/Units 12:25 12:25 12:25 WBC 15.5 H (4.0-11.0) th/mm3 RBC 3.30 L (4.00-5.30) mil/mm3 Hgb 11.8 (11.6-15.3) gm/dL Hct 34.8 L (35.0-46.0) % MCV 105.5 H (80.0-100.0) fL MCH 35.8 H (27.0-34.0) pg MCHC 34.0 (32.0-36.0) % RDW 13.7 (11.6-17.2) % Plt Count 360 (150-450) th/mm3 MPV 9.6 (7.0-11.0) fL Neut % (Auto) 83.9 H (16.0-70.0) % Lymph % (Auto) 9.4 (9.0-44.0) % [place] % (Auto) 6.5 (0.0-8.0) % Eos % (Auto) 0.0 (0.0-4.0) % Baso % (Auto) 0.2 (0.0-2.0) % Neut # (Auto) 13.0 H (1.8-7.7) th/mm3 Lymph # (Auto) 1.5 (1.0-4.8) th/mm3 [place] # (Auto) 1.0 H (0.0-0.9) th/mm3 Eos # (Auto) 0.0 (0.0-0.4) th/mm3 Baso # (Auto) 0.0 (0.0-0.2) th/mm3 WBC Differential . Differential Comment Auto diff final PT 14.6 H (9.8-11.6) sec INR 1.4 Ratio APTT 28.7 (24.3-30.1) sec Sodium 130 L (136-145) meq/L Potassium 3.4 L (3.5-5.1) meq/L Chloride 94 L (98-107) meq/L Carbon Dioxide 18.2 L (21.0-32.0) meq/L Anion Gap 18 H (5-15) meq/L BUN 5 L (7-18) mg/dL Creatinine 0.96 (0.50-1.00) mg/dL Estimated GFR 55 L (>89) mL/min Random Glucose 133 H (74-106) mg/dL Calcium Less than 5.0 L* (8.5-10.1) mg/dL Prot Corrected Calcium 5.0 L* (8.5-10.1) mg/dL Magnesium 0.4 L (1.5-2.5) mg/dL Total Bilirubin 0.5 (0.2-1.0) mg/dL AST 65 H (15-37) U/L ALT 16 (10-53) U/L Alkaline Phosphatase 131 H (45-117) U/L Total Protein 7.3 (6.4-8.2) g/dL Albumin 2.1 L (3.4-5.0) g/dL Lipase 96 (73-393) U/L TSH (0.358-3.740) uIU/mL Free T4 (0.76-1.46) ng/dL Urine Color (Yellw/Straw) Urine Clarity (Clear) Urine pH (5.0-8.5) Ur Specific [place] (1.002-1.035) Urine Protein (Neg-Trace) mg/dL Urine Glucose (UA) (Negative) mg/dL Urine Ketones (Negative) mg/dL Urine Occult Blood (Negative) Urine Nitrate (Negative) Urine Bilirubin (Negative) Urine Urobilinogen (Less than 2) mg/dL Ur Leukocyte Esterase (Negative) Urine RBC (0-3) /hpf Urine WBC (0-5) /hpf Urine WBC Clumps (None) Urine Bacteria (None) /hpf Micro UA Comment Ur Microscopic Review Urine Culture Comments Blood Type Blood Type Recheck Antibody Screen 04/05/18 04/05/18 04/05/18 Range/Units 12:25 12:25 12:52 WBC (4.0-11.0) th/mm3 RBC (4.00-5.30) mil/mm3 Hgb (11.6-15.3) gm/dL Hct (35.0-46.0) % MCV (80.0-100.0) fL MCH (27.0-34.0) pg MCHC (32.0-36.0) % RDW (11.6-17.2) % Plt Count (150-450) th/mm3 MPV (7.0-11.0) fL Neut % (Auto) (16.0-70.0) % Lymph % (Auto) (9.0-44.0) % [place] % (Auto) (0.0-8.0) % Eos % (Auto) (0.0-4.0) % Baso % (Auto) (0.0-2.0) % Neut # (Auto) (1.8-7.7) th/mm3 Lymph # (Auto) (1.0-4.8) th/mm3 [place] # (Auto) (0.0-0.9) th/mm3 Eos # (Auto) (0.0-0.4) th/mm3 Baso # (Auto) (0.0-0.2) th/mm3 WBC Differential Differential Comment PT (9.8-11.6) sec INR Ratio APTT (24.3-30.1) sec Sodium (136-145) meq/L Potassium (3.5-5.1) meq/L Chloride (98-107) meq/L Carbon Dioxide (21.0-32.0) meq/L Anion Gap (5-15) meq/L BUN (7-18) mg/dL Creatinine (0.50-1.00) mg/dL Estimated GFR (>89) mL/min Random Glucose (74-106) mg/dL Calcium (8.5-10.1) mg/dL Prot Corrected Calcium (8.5-10.1) mg/dL Magnesium (1.5-2.5) mg/dL Total Bilirubin (0.2-1.0) mg/dL AST (15-37) U/L ALT (10-53) U/L Alkaline Phosphatase (45-117) U/L Total Protein (6.4-8.2) g/dL Albumin (3.4-5.0) g/dL Lipase (73-393) U/L TSH 4.920 H (0.358-3.740) uIU/mL Free T4 1.56 H (0.76-1.46) ng/dL Urine Color Sosa (Yellw/Straw) Urine Clarity Cloudy H (Clear) Urine pH 6.0 (5.0-8.5) Ur Specific [place] 1.016 (1.002-1.035) Urine Protein 100 H (Neg-Trace) mg/dL Urine Glucose (UA) Negative (Negative) mg/dL Urine Ketones Trace H (Negative) mg/dL Urine Occult Blood Small H (Negative) Urine Nitrate Negative (Negative) Urine Bilirubin Negative (Negative) Urine Urobilinogen 2.0 H (Less than 2) mg/dL Ur Leukocyte Esterase Large H (Negative) Urine RBC 2 (0-3) /hpf Urine WBC (0-5) /hpf Urine WBC Clumps Many H (None) Urine Bacteria Many H (None) /hpf Micro UA Comment Cath-culture ind Ur Microscopic Review Not Reportable Urine Culture Comments Cath-cult indicated Blood Type O Positive Blood Type Recheck Required Antibody Screen Negative Imaging Data Radiologist's impression: Chest X-Ray 04/05/18 12:17 CONCLUSION: No acute cardiopulmonary disease. Discharge Plan Discharge Disposition Patient Disposition: 30 Still Patient Discharge Condition Condition: Stable Discharge Details Diagnosis: Acute UTI, Paroxysmal supraventricular tachycardia, Hypocalcemia, Hypomagnesemia Physicians Team ED Provider: Eliza Sandoval ED Midlevel Provider: Naz Jackson Primary Care Provider: UNKNOWN, Rxs /Orders / Referrals /Forms Prescriptions: No Action sodium chloride 1 gram Tablet 1 tab PO TID RF: 0 hydrocodone-acetaminophen 5-325 mg Tablet 1 tab PO Q6H PRN (Reason: Pain) RF: 0 amlodipine 5 mg Tablet 5 mg PO DAILY RF: 0 levothyroxine 25 mcg Tablet 25 mcg PO DAILY RF: 0 esomeprazole magnesium [Nexium] 20 mg Capsule,Delayed Release(Dr/Ec) 20 mg PO DAILY RF: 0 magnesium oxide 400 mg Capsule 400 mg PO BID RF: 0 Status ED Status: Admitted Patient
[2018-04-05 13:03] LABS: Baso % (Auto) 0.2 % (0.0-2.0); Hematocrit 34.8 % (35.0-46.0); Hemoglobin 11.8 gm/dL (11.6-15.3); Lymph # (Auto) 1.5 th/mm3 (1.0-4.8); Lymph % (Auto) 9.4 % (9.0-44.0); Mean Corpuscular Hemoglobin 35.8 pg (27.0-34.0); Mean Corpuscular Volume 105.5 fL (80.0-100.0); Mean Platelet Volume 9.6 fL (7.0-11.0); Mono % (Auto) 6.5 % (0.0-8.0); Neut % (Auto) 83.9 % (16.0-70.0); Platelet Count 360 th/mm3 (150-450); Red Cell Distribution Width 13.7 % (11.6-17.2); White Blood Count 15.5 th/mm3 (4.0-11.0)
[2018-04-05 13:10] LABS: Activated Partial Thrombo Time 28.7 sec (24.3-30.1); INR 1.4 Ratio; Prothrombin Time 14.6 sec (9.8-11.6)
[2018-04-05 13:14] LABS: Bacteria,Urine Many /hpf; Bilirubin,Urine Negative (Negative); Clarity,Urine Cloudy (Clear); Color,Urine Amber (Yellw/Straw); Glucose,Urine (UA) Negative (Negative); Leukocyte Esterase,Urine Large (Negative); Nitrite,Urine Negative (Negative); Specific Gravity,Urine 1.016 (1.002-1.035)
[2018-04-05 13:23] LABS: Alkaline Phosphatase 131 U/L (45-117); Total Protein 7.3 g/dL (6.4-8.2)
[2018-04-05 13:37] LABS: Anion Gap 18 meq/L (5-15); Blood Urea Nitrogen 5 mg/dL (7-18); Carbon Dioxide 18.2 meq/L (21.0-32.0); Chloride 94 meq/L (98-107); Glomerular Filtration Rate 55 mL/min (>89); Glucose,Random 133 mg/dL (74-106); Magnesium 0.4 mg/dL (1.5-2.5); Potassium 3.4 meq/L (3.5-5.1); Sodium 130 meq/L (136-145)
[2018-04-05 13:38] LABS: Alanine Aminotransferase 16 U/L (10-53); Albumin 2.1 g/dL (3.4-5.0); Aspartate Aminotransferase 65 U/L (15-37); Lipase 96 U/L (73-393)
[2018-04-05 13:39] LABS: Free T4 (Free Thyroxine) 1.56 ng/dL (0.76-1.46); Thyroid Stimulating Hormone 4.92 uIU/mL (0.358-3.740)
--- NOTE | 2018-04-05 13:40 | XR ---
EXAM DATE: 04/05/2018 12:32 PM EDT AGE/SEX: 83 years / Female INDICATIONS: Rapid heart rate, dizziness. CLINICAL DATA: This is the patient's initial encounter. Patient reports that signs and symptoms have been present for 1 day and indicates a pain score of 0/10. MEDICAL/SURGICAL HISTORY: Cardiovascular disease. None. COMPARISON: [facility] [place]ST SINGLE AP, 07/19/2017. . FINDINGS: The cardiac silhouette is normal in transverse diameter. There is prominence of the aortic knob is wi th calcification characteristic of atherosclerotic vascular disease. The lungs are free of acute pare nchymal opacity. No pulmonary nodules or pleural effusions are identified. CONCLUSION: No acute cardiopulmonary disease. Electronically signed by: Chino Pratt MD 04/05/2018 1:39 PM EDT
[2018-04-05] MEDS ORDERED: Calcium Gluconate Inj 2 GM in Dextrose 5% in Water Inj 100 ML IV.SIG ONE ×2 (13:43)
[2018-04-05] MEDS ORDERED: Magnesium Sulfate Inj 2 GM in Sodium Chlor 0.9% Inj 96 ML IV.SIG ONE (13:44)
--- NOTE | 2018-04-05 14:08 | P.HPIM ---
History of Present Illness Primary Care Physician: UNKNOWN History of Present Illness: Mrs. Vincent is an 83-year-old female. She came in today secondary to bilateral hand cramping. She is found to have severe hypocalcemia. She also has hyponatremia and hypokalemia. Her hyponatremia has been a chronic problem for her. She has been recovering from hip fracture but has returned home since being in a group home facility. EKG changes including SVT are present and are likely related to calcium. Corrected calcium level is 5.0 today. Another finding, and likely contributory to the patient's global imbalance is urinary tract infection and she meets sepsis criteria. Diarrhea is present and C. difficile testing is pending. Encephalopathy was previously present but this has improved. She is also had improvement in her cramps with administration of calcium gluconate in the ER and IV hydration. No other complaints at this time. - Diagnosis (1) Sepsis (2) Acute UTI (3) Paroxysmal supraventricular tachycardia (4) Hypocalcemia (5) Hypomagnesemia Review of Systems Constitutional: No fevers, no chills no night sweats, fatigue, weakness, malaise Eyes: No eye pain, no blurry vision, no loss of vision ENT: No sore throat, no ear pain, no rhinorrhea Cardiovascular: No chest pain, tachycardia, no palpitations, no shortness of breath, no syncope Respiratory: No wheezing, no cough, no shortness of breath Gastrointestinal: No abdominal pain, no black tarry stools, no bright red blood per rectum, no vomiting, no diarrhea Musculoskeletal: No joint pain, muscle cramps, no stiffness Integumentary: No rash, no ulcers, no drainage Neurologic: No sensory loss, no loss of motor function, no dizziness Psychiatric: No behavioral changes, no hallucinations, no suicidal ideations [facility] [place] - History History 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, 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 - Medical History Medical History: Medical History (Last Updated 04/05/18 @ 12:34 by Katerina Espinosa) Hypertension Hyponatremia Hypothyroidism - Surgical History Surgical History: Surgical History (Last Updated 04/05/18 @ 12:36 by Katerina Espinosa) History of hip surgery - Family History Family History: Family History (Last Updated 04/05/18 @ 15:27 by Bethel Rowell MD) Other Osteoarthritis - Tobacco History Smoking Status: Former smoker - Alcohol History How Often Do You Have a Drink Containing Alcohol: 2 to 4 times a month - Substance Use History Substance History: No History of Abuse - Travel History Recent Travel in the [place] Within the Last 8 Weeks: No Recent Travel Out of the Country Within the Last 8 Weeks: No - Immunization History Tetanus Immunization: Unsure Medications and Allergies Active Medications: Active Medications Al Hydroxide/Mg Hydroxide (Milk Of Magnesia Liq) 30 ml PO Q12H PRN PRN Reason: Mild Constipation Sodium Chloride (Ns Inj) 1,000 mls @ 0 mls/hr IV.SIG BOLUS CHARLY Last Admin: 04/05/18 13:24 Dose: 999 mls/hr Calcium Gluconate 2 gm/ (Dextrose) 120 mls @ 120 mls/hr IV.SIG ONCE ONE Stop: 04/05/18 14:42 Last Admin: 04/05/18 14:00 Dose: 120 mls/hr Magnesium Sulfate Inj 2 gm/ (Sodium Chloride) 100 mls @ 50 mls/hr IV.SIG ONCE ONE Stop: 04/05/18 15:43 Ceftriaxone Sodium 1,000 mg/ (Sodium Chloride) 100 mls @ 200 mls/hr IV.SIG Q24H CHARLY Lactobacillus Acidophilus (Lactinex) 1 tab PO TID CHARLY Ondansetron HCl (Zofran Inj) 4 mg IV.PUSH Q6H PRN PRN Reason: NAUSEA OR VOMITING Sodium Chloride (Ns Flush) 2 ml IV.FLUSH PRN PRN PRN Reason: FLUSH AFTER USING IV ACCESS Allergies Allergy/AdvReac Type Severity Reaction Status Date / Time lactose Allergy Unknown Verified 07/25/17 15:24 No Known Allergies Allergy Unknown Uncoded 07/25/17 15:24 Home Medications Medication Instructions Recorded Confirmed Type amlodipine 5 mg PO DAILY 04/05/18 04/05/18 History esomeprazole magnesium [Nexium] 20 mg PO DAILY 04/05/18 04/05/18 History hydrocodone-acetaminophen 1 tab PO Q6H PRN 04/05/18 04/05/18 History levothyroxine 25 mcg PO DAILY 04/05/18 04/05/18 History magnesium oxide 400 mg PO BID 04/05/18 04/05/18 History sodium chloride 1 tab PO TID 04/05/18 04/05/18 History Exam Vital signs: Vital Signs 04/05/18 12:08 04/05/18 12:33 04/05/18 13:00 Temperature 99.1 F Pulse Rate 109 H Respiratory Rate 20 Blood Pressure 114/77 Pulse Oximetry 100 99 100 Intake & Output 04/04/18 04/05/18 04/05/18 18:59 06:59 18:59 Weight 45.359 kg Narrative: GENERAL: NAD, A&Ox3 HEAD: Normocephalic. NECK: Supple, trachea midline. No lymphadenopathy. EYES: No scleral icterus. No injection or drainage. CARDIOVASCULAR: Tachycardia and intermittently irregular rhythm (PVCs) without murmurs, gallops, or rubs. RESPIRATORY: Breath sounds equal bilaterally. No accessory muscle use. GASTROINTESTINAL: Abdomen soft, non-tender, nondistended. MUSCULOSKELETAL: No cyanosis, or edema. SKIN: Warm and dry. NEURO: No focal neurological deficits. Results - Labs CBC & Chem 7: 04/05/18 12:25 04/05/18 12:25 Labs: Short CBC 04/05/18 Range/Units 12:25 WBC 15.5 H (4.0-11.0) th/mm3 Hgb 11.8 (11.6-15.3) gm/dL Hct 34.8 L (35.0-46.0) % Plt Count 360 (150-450) th/mm3 BMP 04/05/18 12:25 Sodium 130 L Potassium 3.4 L Chloride 94 L Carbon Dioxide 18.2 L BUN 5 L Creatinine 0.96 Calcium Less than 5.0 L* Liver Function 04/05/18 Range/Units 12:25 Total Bilirubin 0.5 (0.2-1.0) mg/dL AST 65 H (15-37) U/L ALT 16 (10-53) U/L Alkaline Phosphatase 131 H (45-117) U/L Albumin 2.1 L (3.4-5.0) g/dL Urine 04/05/18 Range/Units 12:52 Urine Color Sosa (Yellw/Straw) Urine Clarity Cloudy H (Clear) Urine pH 6.0 (5.0-8.5) Ur Specific [place] 1.016 (1.002-1.035) Urine Protein 100 H (Neg-Trace) mg/dL Urine Glucose (UA) Negative (Negative) mg/dL - Imaging Impressions Chest X-Ray 04/05/18 12:17 CONCLUSION: No acute cardiopulmonary disease. Caprini VTE Risk Assessment Caprini VTE Risk Assessment: No/Low Risk (score <= 1) Caprini Risk Assessment Model: Point Value = 1 Point Value = 2 Point Value = 3 Point Value = 5 Age 41-60 Minor surgery BMI > 25 kg/m2 Swollen legs Varicose veins or History of unexplained or recurrent spontaneous Oral contraceptives or hormone replacement Sepsis (< 1 month) Serious lung disease, including pneumonia (< 1 month) Abnormal pulmonary function Acute myocardial infarction Congestive heart failure (< 1 month) History of inflammatory bowel disease Medical patient at bed rest Age 61-74 Arthroscopic surgery Major open surgery (> 45 min) Laparoscopic surgery (> 45 min) Malignancy Confined to bed (> 72 hours) Immobilizing plaster cast Central venous access Age >= 75 History of VTE Family history of VTE Factor V Leiden Prothrombin [id number] Lupus anticoagulant Anticardiolipin antibodies Elevated serum homocysteine Heparin-induced thrombocytopenia Other congenital or acquired thrombophilia Stroke (< 1 month) Elective arthroplasty Hip, pelvis, or leg fracture Acute spinal cord injury (< 1 month) Prophylaxis Regimen: Total Risk Factor Score Risk Level Prophylaxis Regimen 0-1 Low Early ambulation 2 Moderate Order ONE of the following: *Sequential Compression Device (SCD) *Heparin 5000 units SQ BID 3-4 Higher Order ONE of the following medications: *Heparin 5000 units SQ TID *Enoxaparin/Lovenox 40 mg SQ daily (WT < 150 kg, CrCl > 30 mL/min) *Enoxaparin/Lovenox 30 mg SQ daily (WT < 150 kg, CrCl > 10-29 mL/min) *Enoxaparin/Lovenox 30 mg SQ BID (WT < 150 kg, CrCl > 30 mL/min) AND/OR *Sequential Compression Device (SCD) 5 or more Highest Order ONE of the following medications: *Heparin 5000 units SQ TID (Preferred with Epidurals) *Enoxaparin/Lovenox 40 mg SQ daily (WT < 150 kg, CrCl > 30 mL/min) *Enoxaparin/Lovenox 30 mg SQ daily (WT < 150 kg, CrCl > 10-29 mL/min) *Enoxaparin/Lovenox 30 mg SQ BID (WT < 150 kg, CrCl > 30 mL/min) AND *Sequential Compression Device (SCD) Assessment and Plan - Assessment (1) Sepsis Code(s): A41.9 - Sepsis, unspecified organism Status: Acute (2) Acute UTI Code(s): N39.0 - Urinary tract infection, site not specified Status: Acute (3) Paroxysmal supraventricular tachycardia Code(s): I47.1 - Supraventricular tachycardia Status: Acute (4) Hypocalcemia Code(s): E83.51 - Hypocalcemia Status: Acute (5) Hypomagnesemia Code(s): E83.42 - Hypomagnesemia Status: Acute - Plan 83-year-old female admitted secondary to sepsis with severe electrolyte disturbances inducing cardiac arrhythmia. Repeat electrolyte panel now, further replacements as indicated. 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 Monitor vital signs closely Admit to CIC Severe hypocalcemia Muscle cramping Cardiac arrhythmia Follow and CIC till stabilized Calcium gluconate given in the ER Continue calcium supplementation Follow calcium levels closely Follow on telemetry Hyponatremia This is a chronic problem for this patient Continue sodium supplementation Monitor sodium levels Hypomagnesia Supplementation provided in ER Continue to monitor and replace as needed Hypokalemia Replace as needed and monitor potassium levels Urinary tract infection Rocephin Probiotics Follow culture Hypertension Continue baseline treatment Follow blood pressures Adjust treatments as needed Hypothyroidism Continue baseline treatments DVT prophylaxis Heparin
[2018-04-05 14:20] LABS: Creatine Kinase 119 U/L (26-192)
[2018-04-05 14:36] LABS: Creatine Kinase MB 1.2 ng/mL (0.5-3.6)
[2018-04-05] MEDS ORDERED: Calcium Carbonate 500 MG Tablet PO ONE (16:00)
[2018-04-05] MEDS: Magnesium Oxide 400 MG Tablet PO SCH ×2 (17:25→22:39)
[2018-04-05 17:55] LABS: Alanine Aminotransferase 15 U/L (10-53); Albumin 1.7 g/dL (3.4-5.0); Alkaline Phosphatase 114 U/L (45-117); Anion Gap 15 meq/L (5-15); Aspartate Aminotransferase 51 U/L (15-37); Blood Urea Nitrogen 6 mg/dL (7-18); Carbon Dioxide 21.9 meq/L (21.0-32.0); Chloride 97 meq/L (98-107); Glomerular Filtration Rate 64 mL/min (>89); Glucose,Random 159 mg/dL (74-106); Sodium 134 meq/L (136-145); Total Protein 6.2 g/dL (6.4-8.2)
[2018-04-05 17:58] LABS: Potassium 2.5 meq/L (3.5-5.1)
[2018-04-05] MEDS ORDERED: Sod Chloride 0.9% Inj 1,000 ML IV.SIG ONE (20:00)
[2018-04-05] MEDS: Lactobacillus Acidophilus/L. Spores Tablet PO SCH (20:12)
[2018-04-05] MEDS: Sodium Chloride 1 GM Tablet PO SCH (20:12)
[2018-04-05] MEDS ORDERED: Calcium Gluconate Inj 1 GM in Sodium Chlor 0.9% Inj 100 ML IV.SIG ONE (20:30)
[2018-04-05] MEDS ORDERED: Magnesium Oxide 400 MG Tablet PO SCH (21:00)
[2018-04-05] MEDS: Heparin - SQ 10,000 UNITS/ML Vial SQ SCH (21:59)
[2018-04-05] MEDS: Calcium Carbonate 500 MG Tablet PO SCH (22:39)
[2018-04-05] MEDS ORDERED: Metoprolol Inj 5 MG/5 ML Vial IV.PUSH ONE (23:26)
[2018-04-05] MEDS ORDERED: Sodium Chlor 0.9% Inj 500 ML IV.SIG SCH (23:45)
[2018-04-06 01:26] LABS: Magnesium 0.8 mg/dL (1.5-2.5); Total Protein 5.7 g/dL (6.4-8.2)
[2018-04-06 01:32] LABS: Potassium 2.5 meq/L (3.5-5.1)
[2018-04-06] MEDS ORDERED: Calcium Gluconate Inj 1 GM in Sodium Chlor 0.9% Inj 100 ML IV.SIG ONE (01:33)
[2018-04-06 01:52] LABS: Phosphorus 2.8 mg/dL (2.5-4.9)
[2018-04-06 01:55] LABS: Troponin I 0.02 ng/mL (0.02-0.05)
[2018-04-06] MEDS: Mag Sulf 1 gm/100 ml Premix 100 ML IV.SIG SCH ×2 (02:17→03:30)
[2018-04-06] MEDS: Potassium Chlor 20 mEq Premix 20 MEQ/100 ML PIGGYBACK IV.SIG SCH ×2 (03:40→08:05)
[2018-04-06 09:08] LABS: Baso % (Auto) 0.4 % (0.0-2.0); Eos % (Auto) 0.2 % (0.0-4.0); Hematocrit 31.7 % (35.0-46.0); Hemoglobin 10.8 gm/dL (11.6-15.3); Lymph # (Auto) 1.2 th/mm3 (1.0-4.8); Lymph % (Auto) 11.7 % (9.0-44.0); Mean Corpuscular Hemoglobin 36.2 pg (27.0-34.0); Mean Corpuscular Volume 106.6 fL (80.0-100.0); Mono # (Auto) 0.9 th/mm3 (0.0-0.9); Mono % (Auto) 8.4 % (0.0-8.0); Neut # (Auto) 8.2 th/mm3 (1.8-7.7); Neut % (Auto) 79.3 % (16.0-70.0); Platelet Count 261 th/mm3 (150-450); Red Blood Count 2.97 mil/mm3 (4.00-5.30); White Blood Count 10.3 th/mm3 (4.0-11.0)
[2018-04-06] MEDS ORDERED: Magnesium Sulfate Inj 4 GM in Sodium Chlor 0.9% Inj 92 ML IV.SIG PRN (09:20)
[2018-04-06] MEDS ORDERED: Potassium Chloride 25 MEQ Effervescent Tablet PO PRN (09:20)
[2018-04-06] MEDS ORDERED: Potassium Chlor 40 mEq Premix 40 MEQ/100 ML PIGGYBACK IV.SIG PRN ×2 (09:20)
[2018-04-06] MEDS ORDERED: Potassium Phosphate 500 MG Soluble Tablet PO PRN ×2 (09:20)
[2018-04-06] MEDS ORDERED: Magnesium Oxide 400 MG Tablet PO PRN (09:20)
[2018-04-06] MEDS ORDERED: Sodium Phosphate Inj 30 MMOL in Sodium Chlor 0.9% Inj 250 ML IV.SIG PRN (09:20)
[2018-04-06] MEDS ORDERED: Potassium Phosphate Inj 30 MMOL in Sodium Chlor 0.9% Inj 250 ML IV.SIG PRN (09:20)
[2018-04-06] MEDS ORDERED: Potassium Chlor 20 mEq Premix 20 MEQ/100 ML PIGGYBACK IV.SIG PRN ×2 (09:20)
[2018-04-06 09:23] LABS: Albumin 1.8 g/dL (3.4-5.0); Anion Gap 13 meq/L (5-15); Aspartate Aminotransferase 45 U/L (15-37); Blood Urea Nitrogen 4 mg/dL (7-18); Carbon Dioxide 19.1 meq/L (21.0-32.0); Chloride 100 meq/L (98-107); Glomerular Filtration Rate Greater Than 89 mL/min (>89); Glucose,Random 87 mg/dL (74-106); Magnesium 1.1 mg/dL (1.5-2.5); Potassium 3.1 meq/L (3.5-5.1); Sodium 132 meq/L (136-145)
[2018-04-06 09:24] LABS: Alanine Aminotransferase 14 U/L (10-53); Phosphorus 2.8 mg/dL (2.5-4.9)
[2018-04-06 09:28] LABS: Alkaline Phosphatase 116 U/L (45-117); Total Protein 6.5 g/dL (6.4-8.2)
[2018-04-06] MEDS: Lactobacillus Acidophilus/L. Spores Tablet PO SCH ×3 (09:56→18:31)
[2018-04-06] MEDS: Pantoprazole Sodium 20 MG DR Tablet PO SCH (09:57)
[2018-04-06] MEDS: Magnesium Oxide 400 MG Tablet PO SCH ×3 (09:57→18:31)
[2018-04-06] MEDS: Sodium Chloride 1 GM Tablet PO SCH ×3 (09:57→18:31)
[2018-04-06] MEDS: Calcium Carbonate 500 MG Tablet PO SCH ×4 (09:57→18:31)
[2018-04-06] MEDS: Heparin - SQ 10,000 UNITS/ML Vial SQ SCH (09:58)
--- NOTE | 2018-04-06 10:28 | P.PN ---
Subjective Interval history: Follow-up multiple electrolyte abnormalities and A. fib. Patient is feeling better denies any complaints no more cramping. States she had diarrhea a week ago. History of SVT. Agrees to be anticoagulated prefers to be on Eliquis no history of bleeding. Physical Exam Vital signs: Vital Signs 04/05/18 12:08 04/05/18 12:33 04/05/18 13:00 Temperature 99.1 F Pulse Rate 109 H Respiratory Rate 20 Blood Pressure 114/77 Pulse Oximetry 100 99 100 04/05/18 14:00 04/05/18 15:00 04/05/18 16:00 Temperature Pulse Rate 136 H 132 H 137 H Respiratory Rate 20 20 20 Blood Pressure 110/72 93/50 L 101/63 Pulse Oximetry 99 98 04/05/18 17:00 04/05/18 18:00 04/05/18 19:11 Temperature Pulse Rate 128 H 114 H 134 H Respiratory Rate 22 20 18 Blood Pressure 93/54 L 92/63 L 94/66 L Pulse Oximetry 99 97 04/05/18 20:38 04/06/18 00:00 04/06/18 00:27 Temperature Pulse Rate 128 H 129 H Respiratory Rate 18 18 Blood Pressure 109/85 101/63 Pulse Oximetry 96 96 96 04/06/18 03:15 04/06/18 04:38 04/06/18 08:00 Temperature 97.6 F 97.8 F Pulse Rate 123 H 123 H 118 H Respiratory Rate 16 18 18 Blood Pressure 94/70 L 98/69 L 111/65 Pulse Oximetry 98 100 04/06/18 08:33 Temperature Pulse Rate Respiratory Rate Blood Pressure Pulse Oximetry 95 Intake & Output 04/05/18 04/06/18 04/06/18 18:59 06:59 18:59 Intake Total 1320 / 1320 1420 / 1420 100 / 100 Balance 1320 / 1320 1420 / 1420 100 / 100 Weight 45.359 kg Intake: IV 1320 / 1320 1420 / 1420 100 / 100 Calcium Gluconate Inj 2 GM In 120 / 120 D5W Inj 100 ML @ 120 mls/hr IV. SIG ONCE ONE Rx#:[id number] Calcium Gluconate Inj 1 GM In 220 / 220 NS Inj 100 ML @ 110 mls/hr IV. SIG ONCE ONE Rx#:[id number] Magnesium Sulfate 1 gm/D5W 100 200 / 200 ml Premix 100 ML @ 100 mls/hr IV.SIG Q1H CHARLY Rx#:[id number] Magnesium Sulfate Inj 2 GM In 100 / 100 NS Inj 96 ML @ 50 mls/hr IV.SIG ONCE ONE Rx#:[id number] KCl 20 mEq Premix Inj 20 meq In 100 / 100 100 ml @ 50 mls/hr IV.SIG Q2H CHARLY Rx#:[id number] NS Inj 1,000 ML @ Wide Open IV. 1000 / 1000 1000 / 1000 SIG BOLUS ONE Rx#:[id number] Rocephin Inj 2,000 MG In NS Inj 100 / 100 100 ML @ 200 mls/hr IV.SIG ONCE ONE Rx#:[id number] Narrative: GENERAL: NAD, A&Ox3 NECK: Supple, trachea midline. No lymphadenopathy. CARDIOVASCULAR: Irregularly irregular without murmurs, gallops, or rubs. RESPIRATORY: Breath sounds equal bilaterally. No accessory muscle use. GASTROINTESTINAL: Abdomen soft, non-tender, nondistended. MUSCULOSKELETAL: No cyanosis, or edema. SKIN: Warm and dry. NEURO: No focal neurological deficits. - Urinary Catheter Management Straight Cath placed during this visit: yes, but has since been removed by the nurse Reason for continuing: Not indwelling catheter Insertion date: 04/05/18 Insertion time: 12:45 Removal date: 04/05/18 Removal time: 13:43 Results - Labs CBC & Chem 7: 04/06/18 08:33 04/06/18 08:33 Laboratory Results - last 24 hr 04/05/18 04/05/18 04/05/18 12:25 12:25 12:25 WBC 15.5 H RBC 3.30 L Hgb 11.8 Hct 34.8 L MCV 105.5 H MCH 35.8 H MCHC 34.0 RDW 13.7 Plt Count 360 MPV 9.6 Neut % (Auto) 83.9 H Lymph % (Auto) 9.4 Kidder % (Auto) 6.5 Eos % (Auto) 0.0 Baso % (Auto) 0.2 Neut # (Auto) 13.0 H Lymph # (Auto) 1.5 Kidder # (Auto) 1.0 H Eos # (Auto) 0.0 Baso # (Auto) 0.0 WBC Differential . Differential Comment Auto diff final PT 14.6 H INR 1.4 APTT 28.7 Sodium 130 L Potassium 3.4 L Chloride 94 L Carbon Dioxide 18.2 L Anion Gap 18 H BUN 5 L Creatinine 0.96 Estimated GFR 55 L Random Glucose 133 H Calcium Less than 5.0 L* Prot Corrected Calcium 5.0 L* Phosphorus Magnesium 0.4 L Total Bilirubin 0.5 AST 65 H ALT 16 Alkaline Phosphatase 131 H Total Creatine Kinase CK-MB (CK-2) Troponin I Total Protein 7.3 Albumin 2.1 L Lipase 96 TSH Free T4 Urine Color Urine Clarity Urine pH Ur Specific [place] Urine Protein Urine Glucose (UA) Urine Ketones Urine Occult Blood Urine Nitrate Urine Bilirubin Urine Urobilinogen Ur Leukocyte Esterase Urine RBC Urine WBC Urine WBC Clumps Urine Bacteria Micro UA Comment Ur Microscopic Review Urine Culture Comments Blood Type Blood Type Recheck Antibody Screen 04/05/18 04/05/18 04/05/18 12:25 12:25 12:25 WBC RBC Hgb Hct MCV MCH MCHC RDW Plt Count MPV Neut % (Auto) Lymph % (Auto) Kidder % (Auto) Eos % (Auto) Baso % (Auto) Neut # (Auto) Lymph # (Auto) Kidder # (Auto) Eos # (Auto) Baso # (Auto) WBC Differential Differential Comment PT INR APTT Sodium Potassium Chloride Carbon Dioxide Anion Gap BUN Creatinine Estimated GFR Random Glucose Calcium Prot Corrected Calcium Phosphorus Magnesium Total Bilirubin AST ALT Alkaline Phosphatase Total Creatine Kinase 119 CK-MB (CK-2) 1.2 Troponin I Less than 0.02 L Total Protein Albumin Lipase TSH 4.920 H Free T4 1.56 H Urine Color Urine Clarity Urine pH Ur Specific [place] Urine Protein Urine Glucose (UA) Urine Ketones Urine Occult Blood Urine Nitrate Urine Bilirubin Urine Urobilinogen Ur Leukocyte Esterase Urine RBC Urine WBC Urine WBC Clumps Urine Bacteria Micro UA Comment Ur Microscopic Review Urine Culture Comments Blood Type O Positive Blood Type Recheck Required Antibody Screen Negative 04/05/18 04/05/18 04/06/18 12:52 16:15 00:24 WBC RBC Hgb Hct MCV MCH MCHC RDW Plt Count MPV Neut % (Auto) Lymph % (Auto) Kidder % (Auto) Eos % (Auto) Baso % (Auto) Neut # (Auto) Lymph # (Auto) Kidder # (Auto) Eos # (Auto) Baso # (Auto) WBC Differential Differential Comment PT INR APTT Sodium 134 L Potassium 2.5 L* D Chloride 97 L Carbon Dioxide 21.9 Anion Gap 15 BUN 6 L Creatinine 0.85 Estimated GFR 64 L Random Glucose 159 H Calcium Less than 5.0 L* Prot Corrected Calcium 5.3 L* Phosphorus 2.8 Magnesium Total Bilirubin 0.3 AST 51 H ALT 15 Alkaline Phosphatase 114 Total Creatine Kinase CK-MB (CK-2) Troponin I 0.02 Total Protein 6.2 L D Albumin 1.7 L Lipase TSH Free T4 Urine Color Sosa Urine Clarity Cloudy H Urine pH 6.0 Ur Specific [place] 1.016 Urine Protein 100 H Urine Glucose (UA) Negative Urine Ketones Trace H Urine Occult Blood Small H Urine Nitrate Negative Urine Bilirubin Negative Urine Urobilinogen 2.0 H Ur Leukocyte Esterase Large H Urine RBC 2 Urine WBC Urine WBC Clumps Many H Urine Bacteria Many H Micro UA Comment Cath-culture ind Ur Microscopic Review Not Reportable Urine Culture Comments Cath-cult indicated Blood Type Blood Type Recheck Antibody Screen 04/06/18 04/06/18 04/06/18 00:24 08:33 08:33 WBC 10.3 RBC 2.97 L Hgb 10.8 L Hct 31.7 L MCV 106.6 H MCH 36.2 H MCHC 34.0 RDW 14.0 Plt Count 261 MPV 9.0 Neut % (Auto) 79.3 H Lymph % (Auto) 11.7 Kidder % (Auto) 8.4 H Eos % (Auto) 0.2 Baso % (Auto) 0.4 Neut # (Auto) 8.2 H Lymph # (Auto) 1.2 Kidder # (Auto) 0.9 Eos # (Auto) 0.0 Baso # (Auto) 0.0 WBC Differential . Differential Comment Auto diff final PT INR APTT Sodium 132 L Potassium 2.5 L* 3.1 L Chloride 100 Carbon Dioxide 19.1 L Anion Gap 13 BUN 4 L Creatinine 0.61 Estimated GFR Greater than 89 Random Glucose 87 Calcium Less than 5.0 L* Less than 5.0 L* Prot Corrected Calcium 5.5 L* Less than 5.2 L* Phosphorus 2.8 Magnesium 0.8 L 1.1 L Total Bilirubin 0.4 AST 45 H ALT 14 Alkaline Phosphatase 116 Total Creatine Kinase CK-MB (CK-2) Troponin I Less than 0.02 L Total Protein 5.7 L 6.5 D Albumin 1.8 L Lipase TSH Free T4 Urine Color Urine Clarity Urine pH Ur Specific [place] Urine Protein Urine Glucose (UA) Urine Ketones Urine Occult Blood Urine Nitrate Urine Bilirubin Urine Urobilinogen Ur Leukocyte Esterase Urine RBC Urine WBC Urine WBC Clumps Urine Bacteria Micro UA Comment Ur Microscopic Review Urine Culture Comments Blood Type Blood Type Recheck Antibody Screen - Imaging Impressions Chest X-Ray 04/05/18 12:17 CONCLUSION: No acute cardiopulmonary disease. Assessment and Plan - Assessment (1) Sepsis Code(s): A41.9 - Sepsis, unspecified organism Status: Acute (2) Acute UTI Code(s): N39.0 - Urinary tract infection, site not specified Status: Acute (3) Paroxysmal supraventricular tachycardia Code(s): I47.1 - Supraventricular tachycardia Status: Acute (4) Hypocalcemia Code(s): E83.51 - Hypocalcemia Status: Acute (5) Hypomagnesemia Code(s): E83.42 - Hypomagnesemia Status: Acute - Plan 83-year-old female admitted secondary to sepsis with severe electrolyte disturbances inducing cardiac arrhythmia. Sepsis Tachycardia Follow on planer feeder for resolution of sepsis Monitor vital signs closely Severe hypocalcemia Muscle cramping Cardiac arrhythmia telemetry and EKG shows A. fib Calcium gluconate given in the ER Continue calcium supplementation po. Will give 2 g IV calcium gluconate Follow calcium levels closely repeat level today Follow on telemetry Check PTH and vitamin D Check echocardiogram agrees to be anticoagulated will start with Lovenox for now switch to Eliquis at some point Hyponatremia This is a chronic problem for this patient Continue sodium supplementation Monitor sodium levels Hypomagnesia Supplementation provided in ER Continue to monitor and replace as needed Hypokalemia Replace as needed and monitor potassium levels Urinary tract infection Rocephin Probiotics Follow culture Hypertension Continue baseline treatment Follow blood pressures Adjust treatments as needed Hypothyroidism Continue baseline treatments DVT prophylaxis Lovenox Discharge Planning: PT eval
[2018-04-06] MEDS ORDERED: Calcium Gluconate Inj 2 GM in Sodium Chlor 0.9% Inj 100 ML IV.SIG ONE ×3 (11:00→23:59)
[2018-04-06] MEDS: amLODIPine 5 MG Tablet PO SCH (12:28)
--- NOTE | 2018-04-06 13:42 | P.CONNP ---
History of Present Illness Service: Nephrology Consult date: 04/06/18 Requesting Physician: Viktor Lyons Reason for Consult: Hypocalcemia Primary Care Provider: UNKNOWN Chief Complaint: Hand cramps History of Present Illness: 83-year-old white female with history of electrolyte imbalance she stated she has been taking salt tablets and magnesium replacement, she felt she has developed and cramps which were severe all she felt was curling up of her fingers and she felt weak and tired tingling, she came in with these complaints and found to have severe hypocalcemia, patient states he was having diarrhea for last 4 days prior to admission and her appetite also was very poor, patient has tachycardia and admitted with these complaint to the hospital. She has a protein corrected calcium of 5.3. Magnesium of 0.4 and potassium of 2.5 Review of Systems Constitutional: Reports lack of energy, Reports weight loss Cardiovascular: Reports fast heart rate, Reports shortness of breath with activity Respiratory: Reports shortness of breath Gastrointestinal: Reports loose stools Genitourinary: Reports other Musculoskeletal: Reports abnormal walking, Reports back pain, Reports body aches , Reports decreased muscle mass, Reports muscle cramps, Reports muscle weakness , Reports numbness, Reports tingling Neurologic: Reports tingling/numbness/burning sensations Psychiatric: Reports anxiety PMFSH - History History 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, 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 - Medical History Medical History: Medical History (Last Updated 04/05/18 @ 12:34 by Katerina Espinosa) Hypertension Hyponatremia Hypothyroidism - Surgical History Surgical History: Surgical History (Last Updated 04/05/18 @ 12:36 by Katerina Espinosa) History of hip surgery - Family History Family History: Family History (Last Updated 04/05/18 @ 15:27 by Bethel Rowell MD) Other Osteoarthritis - Tobacco History Smoking Status: Former smoker - Alcohol History How Often Do You Have a Drink Containing Alcohol: 2 to 4 times a month - Substance Use History Substance History: No History of Abuse - Travel History Recent Travel in the [place] Within the Last 8 Weeks: No Recent Travel Out of the Country Within the Last 8 Weeks: No - Immunization History Tetanus Immunization: Unsure Medications and Allergies Active Medications: Active Medications Hydrocodone Bitart/Acetaminophen ([place] 5/325) 1 tab PO Q6H PRN PRN Reason: Pain 1-10 Al Hydroxide/Mg Hydroxide (Milk Of Magnesia Liq) 30 ml PO Q12H PRN PRN Reason: Mild Constipation Amlodipine Besylate (Norvasc) 5 mg PO DAILY [facility] Last Admin: 04/06/18 12:28 Dose: Not Given Enoxaparin Sodium (Lovenox Inj) 50 mg SQ BID [facility] Ceftriaxone Sodium 1,000 mg/ (Sodium Chloride) 100 mls @ 200 mls/hr IV.SIG Q24H CHARLY Magnesium Sulfate Inj 4 gm/ (Sodium Chloride) 100 mls @ 50 mls/hr IV.SIG UNSCH PRN PRN Reason: For Magnesium 0.9 - 1.1 mg/dL Magnesium Sulfate Inj 2 gm/ (Sodium Chloride) 100 mls @ 50 mls/hr IV.SIG UNSCH PRN PRN Reason: For Magnesium 1.2 - 1.6 mg/dL Potassium Chloride (Kcl 40 Meq Premix Inj) 40 meq in 100 mls @ 50 mls/hr IV.SIG Q2H PRN PRN Reason: For Potassium 2.8 - 3.2 mEq/L Potassium Chloride (Kcl 20 Meq Premix Inj) 20 meq in 100 mls @ 50 mls/hr IV.SIG Q2H PRN PRN Reason: For Potassium 3.3 - 3.5 mEq/L Potassium Chloride (Kcl 40 Meq Premix Inj) 40 meq in 100 mls @ 25 mls/hr IV.SIG UNSCH PRN PRN Reason: For Potassium 3.3 - 3.5 mEq/L Potassium Chloride (Kcl 20 Meq Premix Inj) 20 meq in 100 mls @ 50 mls/hr IV.SIG Q2H PRN PRN Reason: For Potassium 2.8 - 3.2 mEq/L Potassium Phosphate 30 mmol/ (Sodium Chloride) 260 mls @ 42 mls/hr IV.SIG UNSCH PRN PRN Reason: SEE LABEL COMMENTS Sodium Phosphate 30 mmol/ (Sodium Chloride) 260 mls @ 42 mls/hr IV.SIG UNSCH PRN PRN Reason: For Phosphorus < 2.5 mg/dL Potassium Chloride/Sodium Chloride (Ns + Kcl 20 Meq Inj) 1,000 mls @ 50 mls/hr IV.CONT .Q20H [facility] Lactobacillus Acidophilus (Lactinex) 1 tab PO TID [facility] Last Admin: 04/06/18 09:56 Dose: 1 tab Levothyroxine Sodium (Synthroid) 25 mcg PO DAILY@0600 [facility] Last Admin: 04/06/18 06:04 Dose: 25 mcg Magnesium Oxide (Mag-Ox) 800 mg PO UNSCH PRN PRN Reason: For Magnesium 1.2 - 1.6 mg/dL Magnesium Oxide (Mag-Ox) 400 mg PO TID [facility] Ondansetron HCl (Zofran Inj) 4 mg IV.PUSH Q6H PRN PRN Reason: NAUSEA OR VOMITING Pantoprazole Sodium (Protonix) 20 mg PO DAILY [facility] Last Admin: 04/06/18 09:57 Dose: 20 mg Potassium Bicarb/Potassium Chloride (K-Lyte Cl Eff) 50 meq PO UNSCH PRN PRN Reason: For Potassium 3.3 - 3.5 mEq/L Potassium Phosphate (K-Phos Original) 2,000 mg PO UNSCH PRN PRN Reason: SEE LABEL COMMENTS Potassium Phosphate (K-Phos Original) 2,000 mg PO Q4H PRN PRN Reason: Phosphorus Less Than 2.5 mg/dL Sodium Chloride (Ns Flush) 2 ml IV.FLUSH PRN PRN PRN Reason: FLUSH AFTER USING IV ACCESS Sodium Chloride (Sodium Chloride) 1 gm PO TID [facility] Last Admin: 04/06/18 09:57 Dose: 1 gm Allergies Allergy/AdvReac Type Severity Reaction Status Date / Time lactose Allergy Unknown Verified 07/25/17 15:24 No Known Allergies Allergy Unknown Uncoded 07/25/17 15:24 Home Medications Medication Instructions Recorded Confirmed Type amlodipine 5 mg PO DAILY 04/05/18 04/05/18 History esomeprazole magnesium [Nexium] 20 mg PO DAILY 04/05/18 04/05/18 History hydrocodone-acetaminophen 1 tab PO Q6H PRN 04/05/18 04/05/18 History levothyroxine 25 mcg PO DAILY 04/05/18 04/05/18 History magnesium oxide 400 mg PO BID 04/05/18 04/05/18 History sodium chloride 1 tab PO TID 04/05/18 04/05/18 History Exam Vital signs: Vital Signs 04/05/18 14:00 04/05/18 15:00 04/05/18 16:00 Temperature Pulse Rate 136 H 132 H 137 H Respiratory Rate 20 20 20 Blood Pressure 110/72 93/50 L 101/63 Pulse Oximetry 99 98 04/05/18 17:00 04/05/18 18:00 04/05/18 19:11 Temperature Pulse Rate 128 H 114 H 134 H Respiratory Rate 22 20 18 Blood Pressure 93/54 L 92/63 L 94/66 L Pulse Oximetry 99 97 04/05/18 20:38 04/06/18 00:00 04/06/18 00:27 Temperature Pulse Rate 128 H 129 H Respiratory Rate 18 18 Blood Pressure 109/85 101/63 Pulse Oximetry 96 96 96 04/06/18 03:15 04/06/18 04:38 04/06/18 08:00 Temperature 97.6 F 97.8 F Pulse Rate 123 H 123 H 118 H Respiratory Rate 16 18 18 Blood Pressure 94/70 L 98/69 L 111/65 Pulse Oximetry 98 100 04/06/18 08:33 Temperature Pulse Rate Respiratory Rate Blood Pressure Pulse Oximetry 95 Intake & Output 04/05/18 04/06/18 04/06/18 18:59 06:59 18:59 Intake Total 1320 / 1320 1420 / 1420 100 / 100 Balance 1320 / 1320 1420 / 1420 100 / 100 Weight 45.359 kg Intake: IV 1320 / 1320 1420 / 1420 100 / 100 Calcium Gluconate Inj 2 GM In 120 / 120 D5W Inj 100 ML @ 120 mls/hr IV. SIG ONCE ONE Rx#:[id number] Calcium Gluconate Inj 1 GM In 220 / 220 NS Inj 100 ML @ 110 mls/hr IV. SIG ONCE ONE Rx#:[id number] Magnesium Sulfate 1 gm/D5W 100 200 / 200 ml Premix 100 ML @ 100 mls/hr IV.SIG Q1H CHARLY Rx#:[id number] Magnesium Sulfate Inj 2 GM In 100 / 100 NS Inj 96 ML @ 50 mls/hr IV.SIG ONCE ONE Rx#:[id number] KCl 20 mEq Premix Inj 20 meq In 100 / 100 100 ml @ 50 mls/hr IV.SIG Q2H CHARLY Rx#:[id number] NS Inj 1,000 ML @ Wide Open IV. 1000 / 1000 1000 / 1000 SIG BOLUS ONE Rx#:[id number] Rocephin Inj 2,000 MG In NS Inj 100 / 100 100 ML @ 200 mls/hr IV.SIG ONCE ONE Rx#:[id number] - Constitutional mild distress - Routine HEENT Exam Head: Present: normocephalic Eye: Present: EOMI - Routine Neck Exam Present: supple - Routine Respiratory Exam Present: decreased breath sounds - Routine Cardiovascular Exam Present: tachycardia (At the bases), irregular rhythm - Routine Abdominal Exam Present: soft, normoactive bowel sounds - Routine Extremities Exam Present: pulses intact - Routine Neurological Exam Present: alert Results - Lab Results 04/06/18 08:33 04/07/18 03:15 Most recent lab results Calcium Less than 5.0 mg/dL (8.5-10.1) L* 04/06/18 08:33 Phosphorus 2.8 mg/dL (2.5-4.9) 04/06/18 08:33 Magnesium 1.1 mg/dL (1.5-2.5) L 04/06/18 08:33 Assessment and Plan - Assessment (1) Acute UTI Code(s): N39.0 - Urinary tract infection, site not specified Status: Acute (2) Paroxysmal supraventricular tachycardia Code(s): I47.1 - Supraventricular tachycardia Status: Acute (3) Hypocalcemia Code(s): E83.51 - Hypocalcemia Status: Acute (4) Hypomagnesemia Code(s): E83.42 - Hypomagnesemia Status: Acute - Plan Patient is an elderly female hypothyroidism and multiple electrolyte imbalance recent loose stools Poor oral intake Combination of this can lead to electrolyte imbalance and malabsorption, she has profound magnesium losses Via GI tract As a result hypocalcemia is likely due to hypomagnesemia Await PTH and active vitamin D level Continue to replace electrolytes Control her heart rate UTI treated with ceftriaxone follow cultures 24 hour urine collection for sodium, potassium, magnesium, calcium and phosphorus ordered I will follow
[2018-04-06] MEDS ORDERED: Morphine Inj 4 MG/ML Vial IV.PUSH ONE (14:05)
[2018-04-06] MEDS ORDERED: Morphine Sulfate Inj 2 MG/ML Vial ONE (14:06)
[2018-04-06] MEDS ORDERED: Midazolam Inj 5 MG/ML 1 ML Vial ONE (14:06)
[2018-04-06] MEDS ORDERED: Lidocaine 1% Inj 50 ML Vial ONE (14:22)
--- NOTE | 2018-04-06 15:05 | P.PCN ---
Date of procedure: 04/06/18 Pre-op diagnosis: Need for central access Post-op diagnosis: same Procedure: Right IJ US guided central line Central line checklist completed, timeout completed. I wore a surgical cap, mask with protective eyewear, full gown and sterile gloves throughout the procedure. Right IJ region was prepped using chlorhexidine scrub and draped in sterile fashion. Anesthesia was achieved over the vein using 1% lidocaine. The introducer needle was inserted into the right IJ vein under US guidance. Venous blood was withdrawn. The syringe was removed and a guidewire was advanced into the introducer needle. The introducer needle was exchanged for a dilator over the guidewire. After appropriate dilation was obtained, the dilator was exchanged over the wire for a triple lumen, 7F, antibiotic coated central venous catheter. The wire was removed and the catheter was sutured in place at 17 cm. A sterile central line dressing was placed over the catheter at the insertion site. The patient tolerated the procedure without any hemodynamic compromise. At time of procedure completion, all ports aspirated and flushed properly. Post-procedure chest x-ray is pending at this time. Anesthesia: local Surgeon: Jona Gunn Estimated blood loss (mL): 1 Pathology: none sent Condition: critical Disposition: ICU
[2018-04-06 16:46] LABS: Anion Gap 13 meq/L (5-15); Blood Urea Nitrogen 4 mg/dL (7-18); Calcium 5.5 mg/dL (8.5-10.1); Carbon Dioxide 19.9 meq/L (21.0-32.0); Chloride 102 meq/L (98-107); Glomerular Filtration Rate Greater Than 89 mL/min (>89); Glucose,Random 118 mg/dL (74-106); Magnesium 2.7 mg/dL (1.5-2.5); Phosphorus 2.1 mg/dL (2.5-4.9); Potassium 3.8 meq/L (3.5-5.1); Sodium 135 meq/L (136-145)
[2018-04-06 17:20] LABS: Total Protein 5.8 g/dL (6.4-8.2)
[2018-04-06] MEDS ORDERED: Sodium Chlor 0.9% Inj 500 ML IV.SIG ONE (18:18)
[2018-04-06] MEDS: Enoxaparin Inj 60 MG/0.6 ML Syringe SQ SCH (20:39)
[2018-04-06 23:30] LABS: Calcium 5.7 mg/dL (8.5-10.1); Total Protein 5.3 g/dL (6.4-8.2)
[2018-04-07 04:54] LABS: Anion Gap 10 meq/L (5-15); Blood Urea Nitrogen 3 mg/dL (7-18); Carbon Dioxide 21.4 meq/L (21.0-32.0); Chloride 105 meq/L (98-107); Glomerular Filtration Rate Greater Than 89 mL/min (>89); Glucose,Random 70 mg/dL (74-106); Magnesium 1.5 mg/dL (1.5-2.5); Phosphorus 4.6 mg/dL (2.5-4.9); Potassium 3.5 meq/L (3.5-5.1); Sodium 136 meq/L (136-145); Total Protein 5.1 g/dL (6.4-8.2)
[2018-04-07] MEDS ORDERED: Calcium Gluconate Inj 2 GM in Sodium Chlor 0.9% Inj 100 ML IV.SIG ONE (05:30)
[2018-04-07] MEDS: Magnesium Sulfate Inj 2 GM in Sodium Chlor 0.9% Inj 96 ML IV.SIG PRN ×2 (05:31→13:13)
[2018-04-07] MEDS: Pantoprazole Sodium 20 MG DR Tablet PO SCH (08:55)
[2018-04-07] MEDS: Magnesium Oxide 400 MG Tablet PO SCH ×3 (08:55→17:04)
[2018-04-07] MEDS: Lactobacillus Acidophilus/L. Spores Tablet PO SCH ×3 (08:55→17:04)
[2018-04-07] MEDS: Enoxaparin Inj 60 MG/0.6 ML Syringe SQ SCH ×2 (08:56→21:19)
[2018-04-07] MEDS: Calcium Carbonate 500 MG Tablet PO SCH ×3 (08:56→17:05)
[2018-04-07] MEDS: Sodium Chloride 1 GM Tablet PO SCH ×3 (09:01→17:05)
[2018-04-07] MEDS: amLODIPine 5 MG Tablet PO SCH (09:31)
[2018-04-07] MEDS ORDERED: dilTIAZem Inj 125 MG in Sodium Chlor 0.9% Inj 100 ML IV.CONT PRN (09:45)
[2018-04-07] MEDS ORDERED: RESP: Albuterol Concentrated 2.5 MG/0.5 ML Neb NEB PRN (09:47)
[2018-04-07] MEDS ORDERED: Benzonatate 100 MG Capsule PO PRN (09:47)
--- NOTE | 2018-04-07 09:52 | P.PN ---
Subjective Interval history: Follow-up multiple electrolyte abnormalities and A. fib. Patient has no complaints telemetry shows tachycardia [phone] denies applications shortness of breath chest pain and dizziness. One loose stool today. Physical Exam Vital signs: Vital Signs 04/06/18 12:00 04/06/18 15:40 04/06/18 16:14 Temperature 98.2 F 98.3 F Pulse Rate 126 H 130 H Respiratory Rate 18 19 20 Blood Pressure 93/56 L 87/59 L Pulse Oximetry 99 99 04/06/18 19:00 04/06/18 20:00 04/06/18 23:00 Temperature 97.4 F L Pulse Rate 68 68 125 H Respiratory Rate 24 Blood Pressure 117/72 Pulse Oximetry 98 98 04/07/18 00:00 04/07/18 03:00 04/07/18 04:00 Temperature 97.4 F L 97.6 F Pulse Rate 113 H 133 H Respiratory Rate 24 24 24 Blood Pressure 110/74 108/55 L Pulse Oximetry 99 99 04/07/18 07:00 04/07/18 08:00 Temperature 98.0 F Pulse Rate 148 H Respiratory Rate 20 Blood Pressure 111/87 Pulse Oximetry 99 100 Intake & Output 04/06/18 04/07/18 04/07/18 18:59 06:59 18:59 Intake Total 770 / 770 2100 / 2100 Output Total 250 / 250 350 / 350 Balance 520 / 520 1750 / 1750 Weight 50 kg Intake: IV 420 / 420 1620 / 1620 NS + KCl 20 mEq Inj 1,000 ML @ 1000 / 1000 75 mls/hr IV.CONT .[id number] [facility] Rx#:[id number] Calcium Gluconate Inj 2 GM In 120 / 120 360 / 360 NS Inj 100 ML @ 120 mls/hr IV. SIG ONCE ONE Rx#:[id number] KCl 20 mEq Premix Inj 20 meq In 200 / 200 100 ml @ 50 mls/hr IV.SIG Q2H [facility] Rx#:[id number] Sodium Phosphate Inj 30 MMOL In 260 / 260 NS Inj 250 ML @ 42 mls/hr IV. SIG UNSCH PRN Rx#:[id number] Rocephin Inj 1,000 MG In NS Inj 100 / 100 100 ML @ 200 mls/hr IV.SIG Q24H [facility] Rx#:[id number] Oral 350 / 350 480 / 480 Output: Urine 250 / 250 350 / 350 Other: Date of Last Bowel Movement 04/06/18 04/06/18 Narrative: GENERAL: NAD, A&Ox3 NECK: Supple, trachea midline. No lymphadenopathy. CARDIOVASCULAR: Irregularly irregular without murmurs, gallops, or rubs. RESPIRATORY: Breath sounds equal bilaterally. No accessory muscle use. GASTROINTESTINAL: Abdomen soft, non-tender, nondistended. MUSCULOSKELETAL: No cyanosis, or edema. SKIN: Warm and dry. NEURO: No focal neurological deficits. - Urinary Catheter Management Straight Cath placed during this visit: yes, but has since been removed by the nurse Reason for continuing: Hourly intake/output Insertion date: 04/06/18 Insertion time: 16:57 Removal date: 04/05/18 Removal time: 13:43 Results - Labs CBC & Chem 7: 04/06/18 08:33 04/07/18 03:15 Laboratory Results - last 24 hr 04/05/18 04/06/18 04/06/18 12:52 08:33 09:20 Sodium Potassium Chloride Carbon Dioxide Anion Gap BUN Creatinine Estimated GFR Random Glucose Calcium Less than 5.0 L* Prot Corrected Calcium Less than 5.2 L* Phosphorus Magnesium Total Protein PTH Intact Urine Color Sosa Urine Clarity Cloudy H Urine pH 6.0 Ur Specific [place] 1.016 Urine Protein 100 H Urine Glucose (UA) Negative Urine Ketones Trace H Urine Occult Blood Small H Urine Nitrate Negative Urine Bilirubin Negative Urine Urobilinogen 2.0 H Ur Leukocyte Esterase Large H Urine RBC 2 Urine WBC Urine WBC Clumps Many H Urine Bacteria Many H Micro UA Comment Cath-culture ind Urine Culture Comments Cath-cult indicated St C. diff Tox Epid 027 Negative C. difficile Tox (PCR) Negative 04/06/18 04/06/18 04/06/18 16:00 16:00 22:10 Sodium 135 L Potassium 3.8 Chloride 102 Carbon Dioxide 19.9 L Anion Gap 13 BUN 4 L Creatinine 0.61 Estimated GFR Greater than 89 Random Glucose 118 H Calcium 5.5 L* 5.7 L* Prot Corrected Calcium 6.0 L* 6.5 L* Phosphorus 2.1 L Magnesium 2.7 H D Total Protein 5.8 L D 5.3 L PTH Intact 709.9 H Urine Color Urine Clarity Urine pH Ur Specific [place] Urine Protein Urine Glucose (UA) Urine Ketones Urine Occult Blood Urine Nitrate Urine Bilirubin Urine Urobilinogen Ur Leukocyte Esterase Urine RBC Urine WBC Urine WBC Clumps Urine Bacteria Micro UA Comment Urine Culture Comments St C. diff Tox Epid 027 C. difficile Tox (PCR) 04/07/18 04/07/18 04/07/18 03:15 03:15 03:15 Sodium Cancelled 136 Potassium Cancelled 3.5 Chloride Cancelled 105 Carbon Dioxide Cancelled 21.4 Anion Gap Cancelled 10 BUN Cancelled 3 L Creatinine Cancelled 0.45 L Estimated GFR Cancelled Greater than 89 Random Glucose Cancelled 70 L Calcium Cancelled 6.0 L* Cancelled Prot Corrected Calcium 6.9 L* Cancelled Phosphorus Cancelled 4.6 D Magnesium Cancelled 1.5 D Total Protein 5.1 L Cancelled PTH Intact Urine Color Urine Clarity Urine pH Ur Specific [place] Urine Protein Urine Glucose (UA) Urine Ketones Urine Occult Blood Urine Nitrate Urine Bilirubin Urine Urobilinogen Ur Leukocyte Esterase Urine RBC Urine WBC Urine WBC Clumps Urine Bacteria Micro UA Comment Urine Culture Comments St C. diff Tox Epid 027 C. difficile Tox (PCR) Microbiology 04/05/18 12:52 Catheterized Urine Urine Culture - Preliminary gram negative rods - Procedures Central line Assessment and Plan - Assessment (1) Sepsis Code(s): A41.9 - Sepsis, unspecified organism Status: Acute (2) Acute UTI Code(s): N39.0 - Urinary tract infection, site not specified Status: Acute (3) Paroxysmal supraventricular tachycardia Code(s): I47.1 - Supraventricular tachycardia Status: Acute (4) Hypocalcemia Code(s): E83.51 - Hypocalcemia Status: Acute (5) Hypomagnesemia Code(s): E83.42 - Hypomagnesemia Status: Acute - Plan 83-year-old female admitted secondary to sepsis with severe electrolyte disturbances inducing cardiac arrhythmia. 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 Will give 2 g IV calcium gluconate Follow calcium levels closely Cardiac arrhythmia telemetry and EKG shows A. fib Hx SVT Follow on telemetry Elevated PTH pending vitamin D Follow-up echocardiogram agrees to be anticoagulated continue Lovenox for now switch to Eliquis at some point Start Cardizem drip and Cardizem p.o. Hyponatremia This is a chronic problem for this patient Continue sodium supplementation Monitor sodium levels Hypomagnesia Supplementation provided in ER Continue to monitor and replace as needed Hypokalemia Replace as needed and monitor potassium levels Urinary tract infection with gram-negative ricardo Rocephin Probiotics Follow culture Hypertension Continue baseline treatment Follow blood pressures Adjust treatments as needed Hypothyroidism Continue baseline treatments DVT prophylaxis Lovenox Discharge Planning: PT eval Stable for transfer to [facility]
[2018-04-07] MEDS: dilTIAZem 30 MG Tablet PO SCH ×3 (12:10→20:06)
[2018-04-07 12:24] LABS: Anion Gap 9 meq/L (5-15); Blood Urea Nitrogen 2 mg/dL (7-18); Calcium 7.2 mg/dL (8.5-10.1); Carbon Dioxide 19.6 meq/L (21.0-32.0); Chloride 104 meq/L (98-107); Glomerular Filtration Rate Greater Than 89 mL/min (>89); Glucose,Random 105 mg/dL (74-106); Potassium 4.6 meq/L (3.5-5.1); Sodium 133 meq/L (136-145)
--- NOTE | 2018-04-07 12:59 | ECG ---
Date Performed: 04/05/2018 Time Performed: 12:13:37 PTAGE: 83 years EKG: SINUS TACHYCARDIA LOW QRS VOLTAGE LEFT ANTERIOR FASCICULAR BLOCK MODERATE T-WAVE ABNORMALIT Y, CONSIDER ANTERIOR ISCHEMIA ABNORMAL ECG PREVIOUS TRACING 07/19/2017 12.15 Since the previous tracing, no significant change noted DOCTOR: Chino Garrison Interpretating Date/Time 04/07/2018 12:58:49
--- NOTE | 2018-04-07 12:59 | ECG ---
Date Performed: 04/05/2018 Time Performed: 23:08:09 PTAGE: 83 years EKG: ATRIAL FIBRILLATION WITH RAPID VENTRICULAR RESPONSE MARKED LEFT AXIS DEVIATION LOW QRS VOLT AGE INCOMPLETE RIGHT BUNDLE BRANCH BLOCK ST DEVIATION AND MODERATE T-WAVE ABNORMALITY, CONSIDER ANTER IOR ISCHEMIA ABNORMAL ECG PREVIOUS TRACING : 04/05/2018 12.13 Since the previous tracing, no significant change noted DOCTOR: Chino Garrison Interpretating Date/Time 04/07/2018 12:58:03
[2018-04-07 13:10] LABS: Total Protein 5.7 g/dL (6.4-8.2)
--- NOTE | 2018-04-07 13:13 | ECHRPT ---
Indication: ATRIAL FIB CONCLUSIONS The left ventricular systolic function is normal with an estimated ejection fraction in the range of 55-60%. Normal left ventricular size. Wall thickness is normal. No regional wall motion abnormalities are present. The left atrial size is upper limits of normal. The mitral valve is not well visualized. Mild thickening of the mitral valve leaflets. Moderate mitral valve regurgitation. Aortic valve sclerosis is present. There is moderate tricuspid regurgitation. The estimated pulmonary arterial pressure is 36.8 mmHg. Trivial pulmonary valve regurgitation. BP: / HR: Rhythm: Atrial fibrillation MEASUREMENTS (Male / Female) Normal Values Technical Quality:Fair 2D ECHO LV Diastolic Diameter PLAX 3.9 cm 4.2 - 5.9 / 3.9 - 5.3 cm LV Systolic Diameter PLAX 2.9 cm IVS Diastolic Thickness 0.9 cm 0.6 - 1.0 / 0.6 - 0.9 cm LVPW Diastolic Thickness 1.0 cm 0.6 - 1.0 / 0.6 - 0.9 cm LV Relative Wall Thickness 0.5 LVOT Diameter 1.6 cm LA Systolic Diameter LX 3.7 cm 3.0 - 4.0 / 2.7 - 3.8 cm LV Ejection Fraction MOD 4C 57.1 % LV Ejection Fraction 4C AL 57.1 % M-MODE Aortic Root Diameter MM 2.1 cm LA Systolic Diameter MM 3.5 cm LA Ao Ratio MM 1.7 AV Cusp Separation MM 1.6 cm DOPPLER AV Peak Velocity 122.0 cm/s AV Peak Gradient 6.0 mmHg LVOT Peak Velocity 74.0 cm/s LVOT Peak Gradient 2.2 mmHg AV Area Cont Eq pk 1.2 cm MV Area PHT 6.9 cm LV E' Lateral Velocity 5.0 cm/s LV E' Septal Velocity 7.5 cm/s TR Peak Velocity 259.0 cm/s TR Peak Gradient 26.8 mmHg Right Atrial Pressure 10.0 mmHg Pulmonary Artery Systolic Pressu 36.8 mmHg Right Ventricular Systolic Press 36.8 mmHg PV Peak Velocity 89.6 cm/s PV Peak Gradient 3.2 mmHg FINDINGS LEFT VENTRICLE The left ventricular systolic function is normal with an estimated ejection fraction in the range of 55-60%. Normal left ventricular size. Wall thickness is normal. No regional wall motion abnormalities are present. RIGHT VENTRICLE Normal right ventricular size and systolic function. LEFT ATRIUM The left atrial size is upper limits of normal. RIGHT ATRIUM The right atrial size is normal. ATRIAL SEPTUM Normal atrial septal thickness without atrial level shunting by limited color doppler interrogation. AORTA The aortic root and proximal ascending aorta are normal in size on limited imaging. MITRAL VALVE The mitral valve is not well visualized. Mild thickening of the mitral valve leaflets. Moderate mitral valve regurgitation. AORTIC VALVE Trileaflet aortic valve. Aortic valve sclerosis is present. TRICUSPID VALVE Structurally normal tricuspid valve. There is moderate tricuspid regurgitation. The estimated pulmonary arterial pressure is 36.8 mmHg. PULMONARY VALVE Trivial pulmonary valve regurgitation. VESSELS The inferior vena cava is normal in size. PERICARDIUM No pericardial effusion. Jak Abreu MD, FACC (Electronically Signed) Final Date:07 April 2018 13:12
--- NOTE | 2018-04-07 14:13 | P.PNNP ---
Subjective Interval history: Patient has A. fib with RVR Physical Exam Vital signs: Vital Signs 04/06/18 15:40 04/06/18 16:14 04/06/18 19:00 Temperature 98.3 F Pulse Rate 130 H 68 Respiratory Rate 19 20 Blood Pressure 87/59 L Pulse Oximetry 99 98 04/06/18 20:00 04/06/18 23:00 04/07/18 00:00 Temperature 97.4 F L 97.4 F L Pulse Rate 68 125 H 113 H Respiratory Rate 24 24 Blood Pressure 117/72 110/74 Pulse Oximetry 98 99 04/07/18 03:00 04/07/18 04:00 04/07/18 07:00 Temperature 97.6 F 98.0 F Pulse Rate 133 H 148 H Respiratory Rate 24 24 20 Blood Pressure 108/55 L 111/87 Pulse Oximetry 99 99 04/07/18 08:00 04/07/18 10:07 04/07/18 11:00 Temperature 98.1 F Pulse Rate 144 H Respiratory Rate 20 Blood Pressure 119/82 Pulse Oximetry 100 99 98 Intake & Output 04/06/18 04/07/18 04/07/18 18:59 06:59 18:59 Intake Total 770 / 770 2100 / 2100 1300 / 1300 Output Total 250 / 250 350 / 350 Balance 520 / 520 1750 / 1750 1300 / 1300 Weight 50 kg Intake: IV 420 / 420 1620 / 1620 1300 / 1300 NS + KCl 20 mEq Inj 1,000 ML @ 1000 / 1000 1000 / 1000 75 mls/hr IV.CONT .[id number] [facility] Rx#:[id number] Calcium Gluconate Inj 2 GM In 120 / 120 360 / 360 NS Inj 100 ML @ 120 mls/hr IV. SIG ONCE ONE Rx#:[id number] Magnesium Sulfate Inj 2 GM In 100 / 100 NS Inj 96 ML @ 50 mls/hr IV.SIG UNSCH PRN Rx#:[id number] KCl 20 mEq Premix Inj 20 meq In 200 / 200 100 ml @ 50 mls/hr IV.SIG Q2H [facility] Rx#:[id number] KCl 40 mEq Premix Inj 40 meq In 100 / 100 100 ml @ 25 mls/hr IV.SIG UNSCH PRN Rx#:[id number] Sodium Phosphate Inj 30 MMOL In 260 / 260 NS Inj 250 ML @ 42 mls/hr IV. SIG UNSCH PRN Rx#:[id number] Rocephin Inj 1,000 MG In NS Inj 100 / 100 100 / 100 100 ML @ 200 mls/hr IV.SIG Q24H [facility] Rx#:[id number] Oral 350 / 350 480 / 480 Output: Urine 250 / 250 350 / 350 Other: Date of Last Bowel Movement 04/06/18 04/06/18 04/07/18 - Constitutional no acute distress - Routine HEENT Exam Head: Present: normocephalic Eye: Present: EOMI - Routine Neck Exam Present: supple - Routine Respiratory Exam Present: decreased breath sounds - Routine Cardiovascular Exam Present: tachycardia, irregularly irregular - Routine Abdominal Exam Present: soft, normoactive bowel sounds - Routine Extremities Exam Present: pulses intact - Urinary Catheter Management Straight Cath placed during this visit: yes, but has since been removed by the nurse Reason for continuing: Hourly intake/output Insertion date: 04/06/18 Insertion time: 16:57 Removal date: 04/05/18 Removal time: 13:43 Assessment and Plan - Assessment (1) Acute UTI Code(s): N39.0 - Urinary tract infection, site not specified Status: Acute (2) Paroxysmal supraventricular tachycardia Code(s): I47.1 - Supraventricular tachycardia Status: Acute (3) Hypocalcemia Code(s): E83.51 - Hypocalcemia Status: Acute (4) Hypomagnesemia Code(s): E83.42 - Hypomagnesemia Status: Acute - Plan Patient is an elderly female hypothyroidism and multiple electrolyte imbalance recent loose stools Poor oral intake Combination of this can lead to electrolyte imbalance and malabsorption, she has profound magnesium losses Via GI tract Magnesium replaced, potassium is improved, calcium improved Monitor blood work A. fib controlled heart rate Urinary tract infection treated with ID on gram-negative rods
[2018-04-07] MEDS: guaiFENesin 600 MG ER Tablet PO SCH (20:06)
[2018-04-08 06:37] LABS: Anion Gap 8 meq/L (5-15); Blood Urea Nitrogen 2 mg/dL (7-18); Calcium 6.3 mg/dL (8.5-10.1); Carbon Dioxide 20.5 meq/L (21.0-32.0); Chloride 107 meq/L (98-107); Glomerular Filtration Rate Greater Than 89 mL/min (>89); Glucose,Random 90 mg/dL (74-106); Magnesium 1.3 mg/dL (1.5-2.5); Phosphorus 2.2 mg/dL (2.5-4.9); Potassium 4.7 meq/L (3.5-5.1); Sodium 135 meq/L (136-145)
[2018-04-08 07:05] LABS: Total Protein 5.1 g/dL (6.4-8.2)
--- NOTE | 2018-04-08 09:10 | P.DCO ---
- Physical Therapy Order: Evaluate and treat, Improve ambulation, Strength and gait training - Home Health Nursing Order: Medical education, Medication education-adverse effect, Nursing assessment with vital signs - Certification I have seen patient Laura Vincent on 04/08/18. My clinical findings support the need for the requested home health care services because: Deconditioned with increased weakness I certify that my clinical findings support that this patient is homebound because: Unsteady gait/balance, Unsafe to leave home unassisted
--- NOTE | 2018-04-08 09:18 | P.PN ---
Subjective Interval history: Follow-up multiple electrolyte abnormalities and A. fib. States she is fine. One loose stool yesterday and today denies nausea and abdominal pain. Telemetry shows sinus rhythm Physical Exam Vital signs: Vital Signs 04/07/18 10:07 04/07/18 11:00 04/07/18 15:02 Temperature 98.1 F Pulse Rate 144 H 73 Respiratory Rate 20 Blood Pressure 119/82 Pulse Oximetry 99 98 04/07/18 15:05 04/07/18 19:00 04/07/18 23:00 Temperature 98.1 F 98.2 F 98 F Pulse Rate 73 73 72 Respiratory Rate 16 18 20 Blood Pressure 105/57 L 102/56 L 101/57 L Pulse Oximetry 94 L 98 97 04/08/18 00:00 04/08/18 01:00 04/08/18 02:00 Temperature Pulse Rate 75 81 75 Respiratory Rate Blood Pressure Pulse Oximetry 04/08/18 02:48 04/08/18 03:00 04/08/18 03:54 Temperature 98.2 F Pulse Rate 73 75 77 Respiratory Rate 18 Blood Pressure 115/56 L Pulse Oximetry 100 04/08/18 05:00 04/08/18 06:00 04/08/18 07:00 Temperature Pulse Rate 73 75 76 Respiratory Rate Blood Pressure Pulse Oximetry 04/08/18 07:30 Temperature 98.5 F Pulse Rate 76 Respiratory Rate 17 Blood Pressure 123/60 Pulse Oximetry 99 Intake & Output 04/07/18 04/08/18 04/08/18 18:59 06:59 18:59 Intake Total 3852 / 3852 480 / 480 Output Total 375 / 375 550 / 550 Balance 3477 / 3477 -70 / -70 Weight 56 kg Intake: IV 3352 / 3352 NS + KCl 20 mEq Inj 1,000 ML @ 2900 / 2900 75 mls/hr IV.CONT .[id number] [facility] Rx#:[id number] Cardizem Inj 125 MG In NS Inj 52 / 52 100 ML @ 5 MG/HR 5 mls/hr IV. CONT TITRATE PRN Rx#:[id number] Magnesium Sulfate Inj 2 GM In 200 / 200 NS Inj 96 ML @ 50 mls/hr IV.SIG UNSCH PRN Rx#:[id number] KCl 40 mEq Premix Inj 40 meq In 100 / 100 100 ml @ 25 mls/hr IV.SIG UNSCH PRN Rx#:[id number] Rocephin Inj 1,000 MG In NS Inj 100 / 100 100 ML @ 200 mls/hr IV.SIG Q24H [facility] Rx#:[id number] Oral 500 / 500 480 / 480 Output: Urine Amount (Catheter) 375 / 375 550 / 550 Indwelling Urethral Catheter 550 / 550 Straight 375 / 375 Other: Date of Last Bowel Movement 04/07/18 04/08/18 # Bowel Movements 2 Narrative: GENERAL: NAD, A&Ox3 CARDIOVASCULAR: Regular rate and rhythm RESPIRATORY: Breath sounds equal bilaterally. No accessory muscle use. GASTROINTESTINAL: Abdomen soft, non-tender, nondistended. MUSCULOSKELETAL: No cyanosis, or edema. SKIN: Warm and dry. NEURO: No focal neurological deficits. - Urinary Catheter Management Straight Cath placed during this visit: yes, but has since been removed by the nurse Reason for continuing: Not indwelling catheter Insertion date: 04/06/18 Insertion time: 16:57 Removal date: 04/05/18 Removal time: 13:43 Indwelling Urethral Catheter Cath placed during this visit: no Reason for continuing: Other continuation reason Results - Labs CBC & Chem 7: 04/06/18 08:33 04/08/18 06:05 Laboratory Results - last 24 hr 04/05/18 04/07/18 04/07/18 12:52 11:42 11:42 Sodium 133 L Potassium 4.6 D Chloride 104 Carbon Dioxide 19.6 L Anion Gap 9 BUN 2 L Creatinine 0.47 L Estimated GFR Greater than 89 Random Glucose 105 Calcium 7.2 L* D Prot Corrected Calcium 7.9 L D Phosphorus Magnesium 1.7 Total Protein 5.7 L D Urine Color Sosa Urine Clarity Cloudy H Urine pH 6.0 Ur Specific [place] 1.016 Urine Protein 100 H Urine Glucose (UA) Negative Urine Ketones Trace H Urine Occult Blood Small H Urine Nitrate Negative Urine Bilirubin Negative Urine Urobilinogen 2.0 H Ur Leukocyte Esterase Large H Urine RBC 2 Urine WBC Urine WBC Clumps Many H Urine Bacteria Many H Micro UA Comment Cath-culture ind Urine Culture Comments Cath-cult indicated Ur 24 Hour Volume Ur Sodium 24 Hour Ur Potassium 24 Hour Ur Calcium 24 Hr 04/07/18 04/07/18 04/07/18 23:00 23:00 23:00 Sodium Potassium Chloride Carbon Dioxide Anion Gap BUN Creatinine Estimated GFR Random Glucose Calcium Prot Corrected Calcium Phosphorus Magnesium Total Protein Urine Color Urine Clarity Urine pH Ur Specific [place] Urine Protein Urine Glucose (UA) Urine Ketones Urine Occult Blood Urine Nitrate Urine Bilirubin Urine Urobilinogen Ur Leukocyte Esterase Urine RBC Urine WBC Urine WBC Clumps Urine Bacteria Micro UA Comment Urine Culture Comments Ur 24 Hour Volume 650 Cancelled 650 Ur Sodium 24 Hour 50 L Ur Potassium 24 Hour 68 Cancelled Ur Calcium 24 Hr 137 04/08/18 06:05 Sodium 135 L Potassium 4.7 Chloride 107 Carbon Dioxide 20.5 L Anion Gap 8 BUN 2 L Creatinine 0.40 L Estimated GFR Greater than 89 Random Glucose 90 Calcium 6.3 L* D Prot Corrected Calcium 7.3 L* Phosphorus 2.2 L D Magnesium 1.3 L Total Protein 5.1 L D Urine Color Urine Clarity Urine pH Ur Specific [place] Urine Protein Urine Glucose (UA) Urine Ketones Urine Occult Blood Urine Nitrate Urine Bilirubin Urine Urobilinogen Ur Leukocyte Esterase Urine RBC Urine WBC Urine WBC Clumps Urine Bacteria Micro UA Comment Urine Culture Comments Ur 24 Hour Volume Ur Sodium 24 Hour Ur Potassium 24 Hour Ur Calcium 24 Hr Microbiology 04/05/18 12:52 Catheterized Urine Urine Culture - Preliminary gram negative rods - Procedures Central line Assessment and Plan - Assessment (1) Paroxysmal supraventricular tachycardia Code(s): I47.1 - Supraventricular tachycardia Status: Acute (2) Hypocalcemia Code(s): E83.51 - Hypocalcemia Status: Acute (3) Hypomagnesemia Code(s): E83.42 - Hypomagnesemia Status: Acute (4) Acute UTI Code(s): N39.0 - Urinary tract infection, site not specified Status: Acute (5) Sepsis Code(s): A41.9 - Sepsis, unspecified organism Status: Acute - Plan 83-year-old female admitted secondary to sepsis with severe electrolyte disturbances inducing cardiac arrhythmia. Sepsis. Resolved Tachycardia. 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 Improving Muscle cramping Calcium gluconate given in the ER Continue calcium supplementation po. Follow calcium levels closely Cardiac arrhythmia telemetry and EKG shows A. fib Hx SVT Follow on telemetry Elevated PTH pending vitamin D Unremarkable echocardiogram EF is 55% agrees to be anticoagulated switch Lovenox to Eliquis today. Status post Cardizem drip and continue Cardizem p.o. Hyponatremia This is a chronic problem for this patient Continue sodium supplementation Monitor sodium levels Hypomagnesia Supplementation provided in ER Continue to monitor and replace as needed Hypokalemia Replace as needed and monitor potassium levels Urinary tract infection with gram-negative ricardo Rocephin Probiotics Follow culture Hypertension Stable Follow blood pressures Adjust treatments as needed Hypothyroidism Continue baseline treatments Loose stools. C. difficile negative. Start Lactinex and limit magnesium DVT prophylaxis Eliquis PT recommends inpatient rehab. Follow-up in consult case management Discharge Planning: PT eval Stable for transfer to [facility]
[2018-04-08] MEDS: Mag Sulf 1 gm/100 ml Premix 100 ML IV.SIG SCH ×2 (09:37→10:36)
[2018-04-08] MEDS: Sodium Chloride 1 GM Tablet PO SCH ×3 (09:40→18:47)
[2018-04-08] MEDS: dilTIAZem CD 120 MG Capsule PO SCH (09:41)
[2018-04-08] MEDS: Potassium Phosphate 500 MG Soluble Tablet PO SCH ×2 (09:41→20:49)
[2018-04-08] MEDS: Lactobacillus Acidophilus/L. Spores Tablet PO SCH ×3 (09:41→18:47)
[2018-04-08] MEDS: Magnesium Oxide 400 MG Tablet PO SCH ×2 (09:42→20:49)
[2018-04-08] MEDS: guaiFENesin 600 MG ER Tablet PO SCH ×2 (09:42→20:49)
[2018-04-08] MEDS: Pantoprazole Sodium 20 MG DR Tablet PO SCH (09:42)
[2018-04-08] MEDS: Calcium Carbonate 500 MG Tablet PO SCH ×3 (09:42→18:47)
[2018-04-08] MEDS: Enoxaparin Inj 60 MG/0.6 ML Syringe SQ SCH (10:14)
--- NOTE | 2018-04-08 18:05 | P.PNNP ---
Subjective Interval history: Patient feels better Physical Exam Vital signs: Vital Signs 04/07/18 19:00 04/07/18 23:00 04/08/18 00:00 Temperature 98.2 F 98 F Pulse Rate 73 72 75 Respiratory Rate 18 20 Blood Pressure 102/56 L 101/57 L Pulse Oximetry 98 97 04/08/18 01:00 04/08/18 02:00 04/08/18 02:48 Temperature 98.2 F Pulse Rate 81 75 73 Respiratory Rate 18 Blood Pressure 115/56 L Pulse Oximetry 100 04/08/18 03:00 04/08/18 03:54 04/08/18 05:00 Temperature Pulse Rate 75 77 73 Respiratory Rate Blood Pressure Pulse Oximetry 04/08/18 06:00 04/08/18 07:00 04/08/18 07:30 Temperature 98.5 F Pulse Rate 75 76 76 Respiratory Rate 17 Blood Pressure 123/60 Pulse Oximetry 99 04/08/18 08:00 04/08/18 09:00 04/08/18 10:00 Temperature Pulse Rate 50 L 82 76 Respiratory Rate Blood Pressure Pulse Oximetry 04/08/18 10:58 04/08/18 11:00 04/08/18 12:00 Temperature 98.6 F Pulse Rate 76 64 72 Respiratory Rate 17 Blood Pressure 116/56 L Pulse Oximetry 99 04/08/18 13:00 04/08/18 14:00 04/08/18 15:00 Temperature 97.7 F Pulse Rate 96 H 72 86 Respiratory Rate 17 Blood Pressure 122/60 Pulse Oximetry 100 04/08/18 16:00 04/08/18 17:00 Temperature Pulse Rate 82 76 Respiratory Rate Blood Pressure Pulse Oximetry Intake & Output 04/07/18 04/08/18 04/08/18 18:59 06:59 18:59 Intake Total 3852 / 3852 480 / 480 1200 / 1200 Output Total 375 / 375 550 / 550 Balance 3477 / 3477 -70 / -70 1200 / 1200 Weight 56 kg Intake: IV 3352 / 3352 1200 / 1200 NS + KCl 20 mEq Inj 1,000 ML @ 2900 / 2900 1000 / 1000 50 mls/hr IV.CONT .Q20H [facility] Rx# :[id number] Cardizem Inj 125 MG In NS Inj 52 / 52 100 ML @ 5 MG/HR 5 mls/hr IV. CONT TITRATE PRN Rx#:[id number] Magnesium Sulfate 1 gm/D5W 100 200 / 200 ml Premix 100 ML @ 100 mls/hr IV.SIG Q1H [facility] Rx#:[id number] Magnesium Sulfate Inj 2 GM In 200 / 200 NS Inj 96 ML @ 50 mls/hr IV.SIG UNSCH PRN Rx#:[id number] KCl 40 mEq Premix Inj 40 meq In 100 / 100 100 ml @ 25 mls/hr IV.SIG UNSCH PRN Rx#:[id number] Rocephin Inj 1,000 MG In NS Inj 100 / 100 100 ML @ 200 mls/hr IV.SIG Q24H [facility] Rx#:[id number] Oral 500 / 500 480 / 480 Output: Urine Amount (Catheter) 375 / 375 550 / 550 Indwelling Urethral Catheter 550 / 550 Straight 375 / 375 Other: Date of Last Bowel Movement 04/07/18 04/08/18 04/08/18 # Bowel Movements 2 Narrative: GENERAL: NAD, A&Ox3 CARDIOVASCULAR: Regular rate and rhythm RESPIRATORY: Breath sounds equal bilaterally. No accessory muscle use. GASTROINTESTINAL: Abdomen soft, non-tender, nondistended. MUSCULOSKELETAL: No cyanosis, or edema. SKIN: Warm and dry. NEURO: No focal neurological deficits. - Urinary Catheter Management Straight Cath placed during this visit: yes, but has since been removed by the nurse Reason for continuing: Not indwelling catheter Insertion date: 04/06/18 Insertion time: 16:57 Removal date: 04/05/18 Removal time: 13:43 Indwelling Urethral Catheter Cath placed during this visit: yes, but has since been removed by the nurse Reason for continuing: Not indwelling catheter Removal date: 04/08/18 Removal time: 09:58 Assessment and Plan - Assessment (1) Acute UTI Code(s): N39.0 - Urinary tract infection, site not specified Status: Acute (2) Paroxysmal supraventricular tachycardia Code(s): I47.1 - Supraventricular tachycardia Status: Acute (3) Hypocalcemia Code(s): E83.51 - Hypocalcemia Status: Acute (4) Hypomagnesemia Code(s): E83.42 - Hypomagnesemia Status: Acute - Plan Patient is an elderly female hypothyroidism and multiple electrolyte imbalance recent loose stools Poor oral intake Combination of this can lead to electrolyte imbalance and malabsorption, she has profound magnesium losses Via GI tract Magnesium replaced, potassium is improved, calcium low again Monitor blood work A. fib controlled heart rate Told her to cut back wine consumption/alcoholic beverages as outpatient 24 hour urine test did not reveal source of sodium, potassium, calcium losses Urinary tract infection treated with ID on gram-negative rods Parathyroid hormone is elevated at 709 she could have primary hyperparathyroidism however calcium was also low with points towards a vitamin D deficiency Add vitamin D supplements
[2018-04-09 04:50] LABS: Phosphorus, U 535 mg/24 h (<1100); Urine Volume 650 mL
[2018-04-09 05:33] LABS: Anion Gap 9 meq/L (5-15); Blood Urea Nitrogen 1 mg/dL (7-18); Calcium 6.4 mg/dL (8.5-10.1); Carbon Dioxide 19.4 meq/L (21.0-32.0); Chloride 105 meq/L (98-107); Glomerular Filtration Rate Greater Than 89 mL/min (>89); Glucose,Random 76 mg/dL (74-106); Magnesium 1.2 mg/dL (1.5-2.5); Phosphorus 1.3 mg/dL (2.5-4.9); Potassium 4.3 meq/L (3.5-5.1); Sodium 133 meq/L (136-145)
[2018-04-09] MEDS: Lactobacillus Acidophilus/L. Spores Tablet PO SCH ×3 (08:52→17:56)
[2018-04-09] MEDS: Calcium Carbonate 500 MG Tablet PO SCH ×3 (08:52→17:55)
[2018-04-09] MEDS: dilTIAZem CD 120 MG Capsule PO SCH (08:52)
[2018-04-09] MEDS: Potassium Phosphate 500 MG Soluble Tablet PO SCH (08:52)
[2018-04-09] MEDS: Magnesium Oxide 400 MG Tablet PO SCH (08:52)
[2018-04-09] MEDS: guaiFENesin 600 MG ER Tablet PO SCH (08:52)
[2018-04-09] MEDS: Pantoprazole Sodium 20 MG DR Tablet PO SCH (08:52)
[2018-04-09] MEDS: Sodium Chloride 1 GM Tablet PO SCH ×3 (08:52→17:56)
--- NOTE | 2018-04-09 09:00 | P.DCO ---
- Physical Therapy Order: Evaluate and treat, Improve ambulation, Strength and gait training - Home Health Nursing Order: Medical education, Medication education-adverse effect, Nursing assessment with vital signs - Certification I have seen patient Laura Vincent on 04/09/18. My clinical findings support the need for the requested home health care services because: Deconditioned with increased weakness I certify that my clinical findings support that this patient is homebound because: Unsafe to leave home unassisted, Need for psychosocial assistance
[2018-04-09] MEDS: Mag Sulf 1 gm/100 ml Premix 100 ML IV.SIG SCH ×2 (09:34→10:38)
[2018-04-09] MEDS ORDERED: Ciprofloxacin 250 MG Tablet PO SCH (10:30)
--- NOTE | 2018-04-09 10:40 | P.DS ---
Date of admission: 04/05/18 14:04 Primary care physician: UNKNOWN Brief History from admission: Mrs. Vincent is an 83-year-old female. She came in today secondary to bilateral hand cramping. She is found to have severe hypocalcemia. She also has hyponatremia and hypokalemia. Her hyponatremia has been a chronic problem for her. She has been recovering from hip fracture but has returned home since being in a [facility] facility. EKG changes including SVT are present and are likely related to calcium. Corrected calcium level is 5.0 today. Another finding, and likely contributory to the patient's global imbalance is urinary tract infection and she meets sepsis criteria. Diarrhea is present and C. difficile testing is pending. Encephalopathy was previously present but this has improved. She is also had improvement in her cramps with administration of calcium gluconate in the ER and IV hydration. No other complaints at this time. DS: Diagnosis - Discharge Diagnosis (1) Acute UTI Status: Acute (2) Paroxysmal supraventricular tachycardia Status: Acute (3) Hypocalcemia Status: Acute (4) Hypomagnesemia Status: Acute (5) Sepsis Status: Acute DS: Medications - Discharge Medications Prescriptions: acidophilus-sporogenes [Acidophilus Ex Str (L. sporog)] 1 tab PO TID #30 tab calcium carbonate [Oyster Shell Calcium 500] 500 mg PO TID #90 tab cholecalciferol (vitamin D3) 5,000 unit PO DAILY #30 cap ciprofloxacin HCl 250 mg PO Q12HR #7 tab hydrocodone-acetaminophen 1 tab PO Q6H PRN #12 tab PRN Reason: Acute Pain potassium phosphate, monobasic [K-Phos Original] 500 mg PO BID #7 tab DS: Summary Hospital Course: 83-year-old female admitted secondary to sepsis with severe electrolyte disturbances inducing cardiac arrhythmia. Sepsis. Resolved Tachycardia. 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 Improving Muscle cramping Calcium gluconate given in the ER Continue calcium supplementation po. Follow calcium levels closely Likely has vitamin D deficiency started on supplementation pending vitamin D level Cardiac arrhythmia telemetry and EKG shows A. fib Hx SVT Follow on telemetry Elevated PTH pending vitamin D Unremarkable echocardiogram EF is 55% agrees to be anticoagulated switch Lovenox to Eliquis today. Status post Cardizem drip and continue Cardizem p.o. Hyponatremia This is a chronic problem for this patient Continue sodium supplementation Monitor sodium levels Hypomagnesia Supplementation provided in ER Continue to monitor and replace as needed Hypokalemia Replace as needed and monitor potassium levels Urinary tract infection with Enterobacter and strep bovis Rocephin will be switched to Cipro for a total of 7 days Probiotics Hypertension Stable Follow blood pressures Adjust treatments as needed Hypothyroidism Continue baseline treatments Loose stools. C. difficile negative. Improving Lactinex and limit magnesium DVT prophylaxis Cass Ibarra queried - Time Spent with Patient Total time spent providing and/or coordinating discharge services: Greater than 30 minutes Exam Vital signs: Vital Signs 04/08/18 10:58 04/08/18 11:00 04/08/18 12:00 Temperature 98.6 F Pulse Rate 76 64 72 Respiratory Rate 17 Blood Pressure 116/56 L Pulse Oximetry 99 04/08/18 13:00 04/08/18 14:00 04/08/18 15:00 Temperature 97.7 F Pulse Rate 96 H 72 86 Respiratory Rate 17 Blood Pressure 122/60 Pulse Oximetry 100 04/08/18 16:00 04/08/18 17:00 04/08/18 18:00 Temperature Pulse Rate 82 76 90 Respiratory Rate Blood Pressure Pulse Oximetry 04/08/18 19:00 04/08/18 20:00 04/08/18 21:00 Temperature 98 F Pulse Rate 80 78 76 Respiratory Rate 16 Blood Pressure 142/67 H Pulse Oximetry 100 04/08/18 22:00 04/08/18 23:00 04/09/18 00:00 Temperature 98.1 F Pulse Rate 77 76 77 Respiratory Rate 16 Blood Pressure 131/68 Pulse Oximetry 100 04/09/18 01:00 04/09/18 02:00 04/09/18 03:00 Temperature 98.1 F Pulse Rate 78 73 81 Respiratory Rate 16 Blood Pressure 135/70 Pulse Oximetry 100 04/09/18 04:00 04/09/18 05:00 04/09/18 05:59 Temperature Pulse Rate 81 72 71 Respiratory Rate Blood Pressure Pulse Oximetry 04/09/18 07:00 04/09/18 07:30 04/09/18 08:00 Temperature 98.0 F Pulse Rate 79 83 81 Respiratory Rate 16 Blood Pressure 121/59 L Pulse Oximetry 100 04/09/18 09:00 04/09/18 10:37 Temperature Pulse Rate 112 H Respiratory Rate Blood Pressure Pulse Oximetry 99 Intake & Output 04/08/18 04/09/18 04/09/18 18:59 06:59 18:59 Intake Total 2019 1240 / 1240 Output Total 102 / 102 350 / 350 Balance 1917 / 1917 890 / 890 Weight 58.5 kg Intake: IV 1300 / 1300 1000 / 1000 NS + KCl 20 mEq Inj 1,000 ML @ 1000 / 1000 1000 / 1000 50 mls/hr IV.CONT .Q20H [facility] Rx# :[id number] Magnesium Sulfate 1 gm/D5W 100 200 / 200 ml Premix 100 ML @ 100 mls/hr IV.SIG Q1H [facility] Rx#:[id number] Rocephin Inj 1,000 MG In NS Inj 100 / 100 100 ML @ 200 mls/hr IV.SIG Q24H [facility] Rx#:[id number] Oral 720 / 720 240 / 240 Output: Urine 100 / 100 350 / 350 Urine/Stool Mix 2 / 2 Other: # Voids 3 Date of Last Bowel Movement 04/08/18 04/09/18 04/09/18 # Bowel Movements 2 1 Narrative: GENERAL: NAD, A&Ox3 CARDIOVASCULAR: Regular rate and rhythm RESPIRATORY: Breath sounds equal bilaterally. No accessory muscle use. GASTROINTESTINAL: Abdomen soft, non-tender, nondistended. MUSCULOSKELETAL: No cyanosis, or edema. SKIN: Warm and dry. NEURO: No focal neurological deficits. Results Procedures completed during hospitalization: Central line Labs on day of discharge: Labs from last 24 hours 04/09/18 04/07/18 04:15 23:00 Sodium 133 L Potassium 4.3 Chloride 105 Carbon Dioxide 19.4 L Anion Gap 9 BUN 1 L Creatinine 0.37 L Estimated GFR Greater than 89 Random Glucose 76 Calcium 6.4 L* Prot Corrected Calcium 7.4 L* Phosphorus 1.3 L Magnesium 1.2 L Total Protein 5.0 L Ur Collection Duration 24 Urine Total Volume 650 Ur Phosphorus mg/Day 535 U Phosphorus Concen 82.3 Preliminary micro results at discharge 04/05/18 12:52 Urine Culture - Preliminary Catheterized Urine Enterobacter aerogenes Streptococcus bovis group - Impressions ITS Impressions Chest X-Ray 04/05/18 12:17 CONCLUSION: No acute cardiopulmonary disease. Discharge Plan - Discharge Disposition Patient Disposition: /[facility] - Discharge Condition Condition: Stable - Discharge Order Discharge Orders: Discharge Order (Routine); Ordered 04/09/18 Ordered By: Viktor Lyons - Discharge Details Anticipated Discharge Date: 04/08/18 - Physicians Team Primary Care Provider: UNKNOWN, Attending Provider: Viktor Lyons Other Providers: Jaquelin Miller MD ; Jona Gunn MD
[2018-04-09] MEDS ORDERED: Sodium Phosphate Inj 30 MMOL in Sodium Chlor 0.9% Inj 250 ML IV.SIG ONE (11:00)
--- NOTE | 2018-04-09 13:50 | P.PNNP ---
Subjective Interval history: Patient is being discharged Physical Exam Vital signs: Vital Signs 04/08/18 14:00 04/08/18 15:00 04/08/18 16:00 Temperature 97.7 F Pulse Rate 72 86 82 Respiratory Rate 17 Blood Pressure 122/60 Pulse Oximetry 100 04/08/18 17:00 04/08/18 18:00 04/08/18 19:00 Temperature 98 F Pulse Rate 76 90 80 Respiratory Rate 16 Blood Pressure 142/67 H Pulse Oximetry 100 04/08/18 20:00 04/08/18 21:00 04/08/18 22:00 Temperature Pulse Rate 78 76 77 Respiratory Rate Blood Pressure Pulse Oximetry 04/08/18 23:00 04/09/18 00:00 04/09/18 01:00 Temperature 98.1 F Pulse Rate 76 77 78 Respiratory Rate 16 Blood Pressure 131/68 Pulse Oximetry 100 04/09/18 02:00 04/09/18 03:00 04/09/18 04:00 Temperature 98.1 F Pulse Rate 73 81 81 Respiratory Rate 16 Blood Pressure 135/70 Pulse Oximetry 100 04/09/18 05:00 04/09/18 05:59 04/09/18 07:00 Temperature Pulse Rate 72 71 79 Respiratory Rate Blood Pressure Pulse Oximetry 04/09/18 07:30 04/09/18 08:00 04/09/18 09:00 Temperature 98.0 F Pulse Rate 83 81 112 H Respiratory Rate 16 Blood Pressure 121/59 L Pulse Oximetry 100 04/09/18 10:37 04/09/18 11:15 Temperature 97.6 F Pulse Rate 81 Respiratory Rate 16 Blood Pressure 126/61 Pulse Oximetry 99 100 Intake & Output 04/08/18 04/09/18 04/09/18 18:59 06:59 18:59 Intake Total 2019 1240 / 1240 450 / 450 Output Total 102 / 102 350 / 350 Balance 1917 / 1917 890 / 890 450 / 450 Weight 58.5 kg Intake: IV 1300 / 1300 1000 / 1000 450 / 450 NS + KCl 20 mEq Inj 1,000 ML @ 1000 / 1000 1000 / 1000 250 / 250 50 mls/hr IV.CONT .Q20H [facility] Rx# :[id number] Magnesium Sulfate 1 gm/D5W 100 200 / 200 200 / 200 ml Premix 100 ML @ 100 mls/hr IV.SIG Q1H [facility] Rx#:[id number] Rocephin Inj 1,000 MG In NS Inj 100 / 100 100 ML @ 200 mls/hr IV.SIG Q24H [facility] Rx#:[id number] Oral 720 / 720 240 / 240 Output: Urine 100 / 100 350 / 350 Urine/Stool Mix 2 / 2 Other: # Voids 3 Date of Last Bowel Movement 04/08/18 04/09/18 04/09/18 # Bowel Movements 2 1 Narrative: GENERAL: NAD, A&Ox3 CARDIOVASCULAR: Regular rate and rhythm RESPIRATORY: Breath sounds equal bilaterally. No accessory muscle use. GASTROINTESTINAL: Abdomen soft, non-tender, nondistended. MUSCULOSKELETAL: No cyanosis, or edema. SKIN: Warm and dry. NEURO: No focal neurological deficits. - Urinary Catheter Management Straight Cath placed during this visit: yes, but has since been removed by the nurse Reason for continuing: Not indwelling catheter Insertion date: 04/06/18 Insertion time: 16:57 Removal date: 04/05/18 Removal time: 13:43 Indwelling Urethral Catheter Cath placed during this visit: yes, but has since been removed by the nurse Reason for continuing: Not indwelling catheter Removal date: 04/08/18 Removal time: 09:58 Assessment and Plan - Assessment (1) Acute UTI Code(s): N39.0 - Urinary tract infection, site not specified Status: Acute (2) Paroxysmal supraventricular tachycardia Code(s): I47.1 - Supraventricular tachycardia Status: Acute (3) Hypocalcemia Code(s): E83.51 - Hypocalcemia Status: Acute (4) Hypomagnesemia Code(s): E83.42 - Hypomagnesemia Status: Acute - Plan Patient is an elderly female hypothyroidism and multiple electrolyte imbalance recent loose stools Poor oral intake Combination of this can lead to electrolyte imbalance and malabsorption, she has profound magnesium losses Via GI tract Magnesium replaced, potassium is improved, calcium low again Monitor blood work A. fib controlled heart rate Told her to cut back wine consumption/alcoholic beverages as outpatient 24 hour urine test did not reveal source of sodium, potassium, calcium, PO4 losses Urinary tract infection treated with ID on gram-negative rods Parathyroid hormone is elevated at 709 she could have primary hyperparathyroidism however calcium was also low witch points towards a vitamin D deficiency Added vitamin D supplements follow up as out patient
== END 2018-04-09 19:00 ==
LOC: NEPC 12:02 → NEDA 14:04 → HCPC 04-06 03:05 → HCVI 04-06 13:13 → HCPC 04-07 18:01
PROVIDERS: ADMIT Internal Medicine; ATTEND Internal Medicine

== ENCOUNTER 2018-06-29 14:39 | Inpatient (IN) ==
--- NOTE | 2018-06-29 15:48 | ED ---
HPI General Chief complaint: Respiratory Symptoms Stated complaint: Respitory Time Seen by Provider: 06/29/18 15:11 Source: patient Mode of arrival: EMS Limitations: no limitations History of Present Illness HPI narrative: Ms Vincent is an 83 year old female who presents to the Ed via [facility] for increasing SOB for 3 days. She states that she was released from the hospital in 03/2018 after being treated for C. diff, and she has not felt like herself since. Last Sunday she had a sharp 9/10 pain under her left breast that lasted for about 12 hours before completely resolving. Sunday she began to feel SOB and today she called EMS due to the increasing severity. She was given albuterol and then was put on 4L of O2 via nasal cannula and states she feels much better but is worried about coming off of the O2. She denies nausea, vomiting, abdominal pain, fever, headache, or constipation. The patient has an extensive medical history that is significant for AFib, pneumonia, anemia, and ORIF of the right hip. She takes Eloquis but is unsure of her other medications. She denies tobacco or drug use and drinks 1 alcoholic beverage a month. Related Data Home Medications Medication Instructions Recorded Confirmed acidophilus-sporogenes 35 mg PO DAILY 06/29/18 06/29/18 apixaban 2.5 mg PO BID 06/29/18 06/29/18 ascorbic acid (vitamin C) 500 mg PO BID 06/29/18 06/29/18 diltiazem HCl 120 mg PO DAILY 06/29/18 06/29/18 ergocalciferol (vitamin D2) 50,000 unit PO QWEEK 06/29/18 06/29/18 ferrous sulfate 325 mg PO BID 06/29/18 06/29/18 folic acid 1 mg PO DAILY 06/29/18 06/29/18 levothyroxine 25 mcg PO DAILY 06/29/18 06/29/18 magnesium oxide 800 mg PO BID 06/29/18 06/29/18 multivitamin 1 tab PO DAILY 06/29/18 06/29/18 pantoprazole [Protonix] 20 mg PO DAILY 06/29/18 06/29/18 potassium bicarb and chloride 25 meq PO BID 06/29/18 06/29/18 sodium chloride 1,000 mg PO TID 06/29/18 06/29/18 Allergies Allergy/AdvReac Type Severity Reaction Status Date / Time lactose Allergy Unknown Abdominal Verified 04/10/18 01:42 Pain Review of Systems ROS: all other systems reviewed are negative [facility] Medical History Medical History Hypothyroidism (Chronic) Hyponatremia (Acute) Hypertension (Chronic) History of fracture of arm (Acute) Surgical History Surgical History History of hip surgery (Acute) History of appendectomy (Acute) Family History Family History Mother Osteoarthritis Other Stroke Social History Social History Substance History: No History of Abuse Second Hand Smoke Exposure: No Smoking Status: Former smoker Tobacco Type: Cigarettes How Often Do You Have a Drink Containing Alcohol: Monthly or less Recent Travel in [facility] within the Last 8 Weeks: No Recent Out of Country Travel within the Last 8 Weeks: No Immunization History Tetanus Immunization: >5 Years Exam Narrative Exam Narrative: GENERAL: Patient is a thin female in [facility]. SKIN: Warm and dry. HEAD: Atraumatic. Normocephalic. EYES: Pupils equal and round. No scleral icterus. No injection or drainage. ENT: No nasal bleeding or discharge. Mucous membranes pink and moist. NECK: Trachea midline. No JVD. CARDIOVASCULAR: Regular rate and rhythm. No murmurs rubs or gallops. No pain with palpation of the chest wall bilaterally. RESPIRATORY: No accessory muscle use. Clear to auscultation. Breath sounds equal bilaterally. GASTROINTESTINAL: Abdomen soft, non-tender, nondistended. Hepatic and splenic margins not palpable. MUSCULOSKELETAL: Extremities without clubbing, cyanosis, or edema. No obvious deformities. Full ROM of the upper and lower extremities bilaterally. 2+ pulses in the upper and lower extremities bilaterally. NEUROLOGICAL: Awake and alert. No obvious cranial nerve deficits. Motor grossly within normal limits. Five out of 5 muscle strength in the arms and legs. Normal speech. PSYCHIATRIC: Appropriate mood and affect; insight and judgment normal. Course Initial Documented Vital Signs Pulse Rate 101 H 06/29/18 15: Respiratory Rate 20 06/29/18 15:01 Blood Pressure 118/75 06/29/18 15:01 Pulse Oximetry 99 06/29/18 15:01 Last Documented Vital Signs Pulse Rate 94 H 06/29/18 15:38 Respiratory Rate 18 06/29/18 15:14 Blood Pressure 118/75 06/29/18 15:14 Pulse Oximetry 100 06/29/18 15:38 Critical Care Time Critical Care Time: Yes Total Critical Care Time: 30 Attestation: Time to perform other separately billable procedures was not included in the critical care time. My time did not include minutes spent treating any other patients simultaneously or on activities that did not directly contribute to the patient's treatment. The services I provided to this patient were to treat and/or prevent clinically significant deterioration due to hyponatremia I provided critical care services requiring my management, as noted below: Chart data review, documentation time, medication orders and management, vital sign assessments/reviewing monitor data, ordering and reviewing lab tests, ordering and interpreting/reviewing x-rays and diagnostic studies, care of the patient and discussion of the patient with the admitting physicians Medical Decision Making MDM Narrative Medical decision making narrative: 83-year-old female here for shortness of breath. Patient was properly examined and was found to have signs and symptoms concerning for COPD exacerbation with possible pneumonia. Labs and imaging ordered. Labs and imaging were positive for appears to be hyponatremia, pneumonia. At this time accommodations for admission for further evaluation and treatment. Case was discussed with initially Dr. Bolden who at this time recommends that the patient be admitted to the intensive care unit secondary to the patient's hyponatremia. This was discussed with Dr. Winston for the director stage who agrees to admission to his service. Family and patient agree with admission plan. Patient will start IV antibiotics by me. Medical Screen Exam Complete: Yes Emergency Medical Condition: Yes Differential Diagnosis Differential Diagnosis: Pneumonia versus sepsis versus COPD exacerbation versus hypoxia Medical Records Medical records reviewed: Yes I reviewed the patient's medical records. Lab Data Lab results reviewed: Yes I reviewed the patient's lab results. Result diagrams: 06/29/18 15:40 06/29/18 15:40 Lab Results 06/29/18 06/29/18 06/29/18 Range/Units 15:40 15:40 15:40 WBC 18.3 H (4.0-11.0) th/mm3 RBC 3.76 L (4.00-5.30) mil/mm3 Hgb 12.8 (11.6-15.3) gm/dL Hct 37.5 (35.0-46.0) % MCV 99.9 (80.0-100.0) fL MCH 34.0 (27.0-34.0) pg MCHC 34.0 (32.0-36.0) % RDW 15.0 (11.6-17.2) % Plt Count 306 (150-450) th/mm3 MPV 8.9 (7.0-11.0) fL Neut % (Auto) 86.2 H (16.0-70.0) % Lymph % (Auto) 6.7 L (9.0-44.0) % [place] % (Auto) 6.8 (0.0-8.0) % Eos % (Auto) 0.1 (0.0-4.0) % Baso % (Auto) 0.2 (0.0-2.0) % Neut # (Auto) 15.8 H (1.8-7.7) th/mm3 Lymph # (Auto) 1.2 (1.0-4.8) th/mm3 [place] # (Auto) 1.2 H (0.0-0.9) th/mm3 Eos # (Auto) 0.0 (0.0-0.4) th/mm3 Baso # (Auto) 0.0 (0.0-0.2) th/mm3 WBC Differential . Differential Comment Auto diff final PT 12.7 H (9.8-11.6) sec INR 1.3 Ratio APTT 40.7 H (23.4-31.7) sec Sodium 111 L* (136-145) meq/L Potassium 4.0 (3.5-5.1) meq/L Chloride 75 L (98-107) meq/L Carbon Dioxide 24.8 (21.0-32.0) meq/L Anion Gap 11 (5-15) meq/L BUN 4 L (7-18) mg/dL Creatinine 0.47 L (0.50-1.00) mg/dL Estimated GFR Greater than 89 (>89) mL/min Random Glucose 140 H (74-106) mg/dL Calcium 8.0 L (8.5-10.1) mg/dL Total Bilirubin 0.6 (0.2-1.0) mg/dL AST 23 (15-37) U/L ALT 13 (10-53) U/L Alkaline Phosphatase 109 (45-117) U/L Total Creatine Kinase 33 (26-192) U/L Troponin I Less than 0.02 L (0.02-0.05) ng/mL B-Natriuretic Peptide (0-100) pg/mL Total Protein 7.0 (6.4-8.2) g/dL Albumin 2.4 L (3.4-5.0) g/dL 06/29/18 06/29/18 Range/Units 15:40 15:40 WBC (4.0-11.0) th/mm3 RBC (4.00-5.30) mil/mm3 Hgb (11.6-15.3) gm/dL Hct (35.0-46.0) % MCV (80.0-100.0) fL MCH (27.0-34.0) pg MCHC (32.0-36.0) % RDW (11.6-17.2) % Plt Count (150-450) th/mm3 MPV (7.0-11.0) fL Neut % (Auto) (16.0-70.0) % Lymph % (Auto) (9.0-44.0) % [place] % (Auto) (0.0-8.0) % Eos % (Auto) (0.0-4.0) % Baso % (Auto) (0.0-2.0) % Neut # (Auto) (1.8-7.7) th/mm3 Lymph # (Auto) (1.0-4.8) th/mm3 [place] # (Auto) (0.0-0.9) th/mm3 Eos # (Auto) (0.0-0.4) th/mm3 Baso # (Auto) (0.0-0.2) th/mm3 WBC Differential Differential Comment PT (9.8-11.6) sec INR Ratio APTT Cancelled (23.4-31.7) sec Sodium (136-145) meq/L Potassium (3.5-5.1) meq/L Chloride (98-107) meq/L Carbon Dioxide (21.0-32.0) meq/L Anion Gap (5-15) meq/L BUN (7-18) mg/dL Creatinine (0.50-1.00) mg/dL Estimated GFR (>89) mL/min Random Glucose (74-106) mg/dL Calcium (8.5-10.1) mg/dL Total Bilirubin (0.2-1.0) mg/dL AST (15-37) U/L ALT (10-53) U/L Alkaline Phosphatase (45-117) U/L Total Creatine Kinase (26-192) U/L Troponin I (0.02-0.05) ng/mL B-Natriuretic Peptide 189 H (0-100) pg/mL Total Protein (6.4-8.2) g/dL Albumin (3.4-5.0) g/dL Imaging Data Attestation: I personally reviewed and interpreted this imaging study as follows : Radiologist's impression: Chest X-Ray 06/29/18 15:35 CONCLUSION: 1. Small bilateral pleural effusions. 2. Bibasilar atelectasis and/or mild infiltrates. ECG Data Attestation: I personally reviewed and interpreted this ECG as follows: Interpretation: EKG shows sinus tachycardia with no sign of acute ischemia read by me and attending. Ventricular rate of 100 bpm. Discharge Plan Discharge Disposition Patient Disposition: 30 Still Patient Discharge Details Diagnosis: Acute hyponatremia, Pneumonia Physicians Team ED Provider: Adriana Hernandez ED Midlevel Provider: Andrés Choi Primary Care Provider: Esteban Spears Attending Provider: Gregorio Winston Status ED Status: Admitted Patient
--- NOTE | 2018-06-29 15:53 | XR ---
EXAM DATE: 06/29/2018 3:51 PM EST AGE/SEX: 83 years / Female INDICATIONS: Chest pain and shortness of breath today. CLINICAL DATA: This is the patient's initial encounter. Patient reports that signs and symptoms have been present for 1 day and indicates a pain score of 3/10. MEDICAL/SURGICAL HISTORY: . Hypertension. Hyponatremia. Hypothyroid. . Hip surgery COMPARISON: [facility], CHEST 2V AP&LAT, 04/19/2018. . FINDINGS: Small bilateral pleural effusions are noted. Bibasilar atelectasis and/or mild infiltrates are noted. The heart is stable. CONCLUSION: 1. Small bilateral pleural effusions. 2. Bibasilar atelectasis and/or mild infiltrates. Electronically signed by: Darinel Saldana MD 06/29/2018 3:52 PM EST
[2018-06-29 16:00] LABS: Activated Partial Thrombo Time 40.7 sec (23.4-31.7); INR 1.3 Ratio; Prothrombin Time 12.7 sec (9.8-11.6)
[2018-06-29 16:01] LABS: Baso % (Auto) 0.2 % (0.0-2.0); Eos % (Auto) 0.1 % (0.0-4.0); Hematocrit 37.5 % (35.0-46.0); Hemoglobin 12.8 gm/dL (11.6-15.3); Lymph # (Auto) 1.2 th/mm3 (1.0-4.8); Lymph % (Auto) 6.7 % (9.0-44.0); Mean Corpuscular Volume 99.9 fL (80.0-100.0); Mean Platelet Volume 8.9 fL (7.0-11.0); Mono # (Auto) 1.2 th/mm3 (0.0-0.9); Mono % (Auto) 6.8 % (0.0-8.0); Neut # (Auto) 15.8 th/mm3 (1.8-7.7); Neut % (Auto) 86.2 % (16.0-70.0); Platelet Count 306 th/mm3 (150-450); Red Blood Count 3.76 mil/mm3 (4.00-5.30); White Blood Count 18.3 th/mm3 (4.0-11.0)
[2018-06-29 16:12] LABS: Alanine Aminotransferase 13 U/L (10-53); Albumin 2.4 g/dL (3.4-5.0); Alkaline Phosphatase 109 U/L (45-117); Anion Gap 11 meq/L (5-15); Aspartate Aminotransferase 23 U/L (15-37); Blood Urea Nitrogen 4 mg/dL (7-18); Carbon Dioxide 24.8 meq/L (21.0-32.0); Chloride 75 meq/L (98-107); Creatine Kinase 33 U/L (26-192); Glomerular Filtration Rate Greater Than 89 mL/min (>89); Glucose,Random 140 mg/dL (74-106)
[2018-06-29 16:13] LABS: Sodium 111 meq/L (136-145)
[2018-06-29] MEDS ORDERED: Dextrose 50% in Water 50 ML Vial IV.PUSH PRN (17:52)
[2018-06-29] MEDS ORDERED: Bisacodyl 10 MG Supp RECTAL PRN (17:52)
[2018-06-29] MEDS ORDERED: Magnesium Oxide 400 MG Tablet PO PRN (17:52)
[2018-06-29] MEDS ORDERED: Magnesium Sulfate Inj 4 GM in Sodium Chlor 0.9% Inj 92 ML IV.SIG PRN (17:52)
[2018-06-29] MEDS ORDERED: Magnesium Sulfate Inj 2 GM in Sodium Chlor 0.9% Inj 96 ML IV.SIG PRN (17:52)
[2018-06-29] MEDS ORDERED: Potassium Chloride 25 MEQ Effervescent Tablet PO PRN (17:52)
[2018-06-29] MEDS ORDERED: Potassium Phosphate Inj 30 MMOL in Sodium Chlor 0.9% Inj 250 ML IV.SIG PRN (17:52)
[2018-06-29] MEDS ORDERED: Potassium Phosphate 500 MG Soluble Tablet PO PRN ×2 (17:52)
[2018-06-29] MEDS ORDERED: Potassium Chlor 20 mEq Premix 20 MEQ/100 ML PIGGYBACK IV.SIG PRN ×2 (17:52)
[2018-06-29] MEDS ORDERED: Acetaminophen 325 MG Tablet PO PRN (17:52)
[2018-06-29] MEDS ORDERED: Potassium Chlor 40 mEq Premix 40 MEQ/100 ML PIGGYBACK IV.SIG PRN ×2 (17:52)
[2018-06-29] MEDS ORDERED: Sodium Phosphate Inj 30 MMOL in Sodium Chlor 0.9% Inj 250 ML IV.SIG PRN (17:52)
[2018-06-29] MEDS ORDERED: HYDROmorphone PF Inj 1 MG/ML Ampul IV.PUSH PRN (17:52)
[2018-06-29] MEDS ORDERED: Enoxaparin Inj 40 MG/0.4 ML Syringe SQ SCH (18:30)
[2018-06-29] MEDS: Sod Chloride 0.9% Inj 1,000 ML IV.CONT SCH (18:41)
[2018-06-29] MEDS: Insulin NovoLIN Regular Correctional Sugar Inj SQ SCH ×2 (18:54→23:46)
[2018-06-29] MEDS: Azithromycin Inj 500 MG in Sodium Chlor 0.9% Inj 250 ML IV.SIG SCH (19:03)
--- NOTE | 2018-06-29 20:18 | P.HPCC ---
History of Present Illness Service: Critical care medicine Primary Care Physician: Esteban Spears MD Chief Complaint: shortness of breath History of Present Illness: 83-year-old female was brought to the ER with history of shortness of breath going on for 2 days. She was previously admitted to the hospital in March 2018 after being treated for C. difficile colitis was subsequently discharged to rehab and then home. She has been having some loose bowel movements off and on since then. She has also had problems with hyponatremia and is supposed to be on 3 salt tabs daily however just takes 1 daily now. Patient was brought to the ER and placed on nasal cannula. On workup she was noted to have a sodium of 111. Hospitalist service felt uncomfortable admitting this patient hence she was accepted for admission by critical care medicine service. She was otherwise completely awake and alert not in any acute distress without any documented hypotension. Patient denied any fevers or chills. Denied any abdominal pain nausea vomiting, melena or rectal bleeding. She does have a history of atrial fibrillation and takes Eliquis. Inpatient Certification: I certify that the inpatient services were ordered in accordance with Medicare regulations governing the order. 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 - Medical History Medical History: Medical History (Last Reviewed 06/29/18 @ 18:21 by ASIF August) Hypothyroidism (Chronic) Hyponatremia (Acute) Hypertension (Chronic) History of fracture of arm - Surgical History Surgical History: Surgical History (Last Reviewed 06/29/18 @ 18:21 by ASIF August) History of hip surgery (Acute) History of appendectomy - Family History Family History: Family History (Last Reviewed 06/29/18 @ 18:21 by ASIF August) Mother Osteoarthritis Other Stroke - Tobacco History Second Hand Smoke Exposure: No Smoking Status: Former smoker Tobacco Type: Cigarettes - Alcohol History How Often Do You Have a Drink Containing Alcohol: Monthly or less - Substance Use History Substance History: No History of Abuse - Travel History Recent Travel in the [place] Within the Last 8 Weeks: No Recent Travel Out of the Country Within the Last 8 Weeks: No - Immunization History Tetanus Immunization: >5 Years Medications and Allergies Active Medications: Active Medications Acetaminophen (Tylenol) 650 mg PO Q6H PRN PRN Reason: TEMPERATURE > 101 F Albuterol (Duoneb Neb (Prn)) 1 ampul NEB Q2HR NEB PRN PRN Reason: WHEEZING Albuterol (Duoneb Neb (Jaycee)) 1 ampul NEB Q6HR NEB JAYCEE Bisacodyl (Dulcolax Supp) 10 mg RECTAL DAILY PRN PRN Reason: if no BM in last 24h Chlorhexidine Gluconate (Chlorhexidine 2% Cloth) 3 pack TOPICAL DAILY@0400 JAYCEE Stop: 07/05/18 03:59 Chlorhexidine Gluconate (Chlorhexidine 2% Cloth) 3 pack TOPICAL DAILY@0400 PRN PRN Reason: Extra cloth needed Stop: 07/05/18 03:59 Dextrose (D50w Vial) 50 ml IV.PUSH UNSCH PRN PRN Reason: PER HYPOGLYCEMIA PROTOCOL Enoxaparin Sodium (Lovenox Inj) 40 mg SQ Q24H JAYCEE Last Admin: 06/29/18 18:39 Dose: 40 mg Famotidine (Pepcid) 20 mg PO BID JAYCEE Glucagon (Glucagon Inj) 1 mg OTHER PRN PRN PRN Reason: for Hypoglycemia Protocol Hydromorphone HCl (Dilaudid Pf Inj) 0.25 mg IV.PUSH Q1H PRN PRN Reason: pain 8-10 or not taking po Ceftriaxone Sodium 1,000 mg/ (Sodium Chloride) 100 mls @ 200 mls/hr IV.SIG Q24H JAYCEE Last Infusion: 06/29/18 19:02 Dose: Infused Azithromycin 500 mg/ Sodium (Chloride) 250 mls @ 250 mls/hr IV.SIG Q24H JAYCEE Last Admin: 06/29/18 19:03 Dose: 250 mls/hr Magnesium Sulfate 4 gm/ Sodium (Chloride) 100 mls @ 50 mls/hr IV.SIG UNSCH PRN PRN Reason: For Magnesium 0.9 - 1.1 mg/dL Potassium Chloride (Kcl 40 Meq Premix Inj) 40 meq in 100 mls @ 25 mls/hr IV.SIG Q2H PRN PRN Reason: For Potassium 2.8 - 3.2 mEq/L Potassium Chloride (Kcl 20 Meq Premix Inj) 20 meq in 100 mls @ 50 mls/hr IV.SIG Q2H PRN PRN Reason: For Potassium 3.3 - 3.5 mEq/L Potassium Chloride (Kcl 40 Meq Premix Inj) 40 meq in 100 mls @ 25 mls/hr IV.SIG UNSCH PRN PRN Reason: For Potassium 3.3 - 3.5 mEq/L Potassium Phosphate 30 mmol/ (Sodium Chloride) 260 mls @ 42 mls/hr IV.SIG UNSCH PRN PRN Reason: SEE LABEL COMMENTS Sodium Phosphate 30 mmol/ (Sodium Chloride) 260 mls @ 42 mls/hr IV.SIG UNSCH PRN PRN Reason: For Phosphorus < 2.5 mg/dL Magnesium Sulfate 2 gm/ Sodium (Chloride) 100 mls @ 50 mls/hr IV.SIG UNSCH PRN PRN Reason: For Magnesium 1.2 - 1.6 mg/dL Potassium Chloride (Kcl 20 Meq Premix Inj) 20 meq in 100 mls @ 50 mls/hr IV.SIG Q2H PRN PRN Reason: For Potassium 2.8 - 3.2 mEq/L Sodium Chloride (Ns Inj) 1,000 mls @ 84 mls/hr IV.CONT .[id number] [facility] Last Admin: 06/29/18 18:41 Dose: 84 mls/hr Insulin Human Regular (Novolin R Correctional Sugar Inj) 0 units SQ Q6HR [facility]; Protocol Last Admin: 06/29/18 18:54 Dose: Not Given Lactulose (Lactulose Liq) 30 ml PO BID [facility] Magnesium Oxide (Mag-Ox) 800 mg PO UNSCH PRN PRN Reason: For Magnesium 1.2 - 1.6 mg/dL Ondansetron HCl (Zofran Inj) 4 mg IV.PUSH Q6H PRN PRN Reason: NAUSEA OR VOMITING Oxycodone HCl (Roxicodone) 5 mg PO Q4H PRN PRN Reason: Pain 1-5 Polyethylene Glycol (Miralax) 17 gm PO BID [facility] Potassium Bicarb/Potassium Chloride (K-Lyte Cl Eff) 50 meq PO UNSCH PRN PRN Reason: For Potassium 3.3 - 3.5 mEq/L Potassium Phosphate (K-Phos Original) 2,000 mg PO Q4H PRN PRN Reason: Phosphorus Less Than 2.5 mg/dL Potassium Phosphate (K-Phos Original) 2,000 mg PO UNSCH PRN PRN Reason: SEE LABEL COMMENTS Senna/Docusate Sodium (Omaira-Colace) 1 tab PO BID JAYCEE Sodium Chloride (Ns Flush) 2 ml IV.FLUSH UNSCH PRN PRN Reason: FLUSH AFTER USING IV ACCESS Allergies Allergy/AdvReac Type Severity Reaction Status Date / Time lactose Allergy Unknown Abdominal Verified 04/10/18 01:42 Pain Home Medications Medication Instructions Recorded Confirmed Type acidophilus-sporogenes 35 mg PO DAILY 06/29/18 06/29/18 History apixaban 2.5 mg PO BID 06/29/18 06/29/18 History ascorbic acid (vitamin C) 500 mg PO BID 06/29/18 06/29/18 History diltiazem HCl 120 mg PO DAILY 06/29/18 06/29/18 History ergocalciferol (vitamin D2) 50,000 unit PO QWEEK 06/29/18 06/29/18 History ferrous sulfate 325 mg PO BID 06/29/18 06/29/18 History folic acid 1 mg PO DAILY 06/29/18 06/29/18 History levothyroxine 25 mcg PO DAILY 06/29/18 06/29/18 History magnesium oxide 800 mg PO BID 06/29/18 06/29/18 History multivitamin 1 tab PO DAILY 06/29/18 06/29/18 History pantoprazole [Protonix] 20 mg PO DAILY 06/29/18 06/29/18 History potassium bicarb and chloride 25 meq PO BID 06/29/18 06/29/18 History sodium chloride 1,000 mg PO TID 06/29/18 06/29/18 History Results - Labs CBC & Chem 7: 06/29/18 15:40 06/29/18 15:40 Labs: Short CBC 06/29/18 Range/Units 15:40 WBC 18.3 H (4.0-11.0) th/mm3 Hgb 12.8 (11.6-15.3) gm/dL Hct 37.5 (35.0-46.0) % Plt Count 306 (150-450) th/mm3 BMP 06/29/18 15:40 Sodium 111 L* Potassium 4.0 Chloride 75 L Carbon Dioxide 24.8 BUN 4 L Creatinine 0.47 L Calcium 8.0 L Cardiac Enzymes 06/29/18 Range/Units 15:40 Total Creatine Kinase 33 (26-192) U/L Troponin I Less than 0.02 L (0.02-0.05) ng/mL Liver Function 06/29/18 Range/Units 15:40 Total Bilirubin 0.6 (0.2-1.0) mg/dL AST 23 (15-37) U/L ALT 13 (10-53) U/L Alkaline Phosphatase 109 (45-117) U/L Albumin 2.4 L (3.4-5.0) g/dL - Imaging Impressions Chest X-Ray 06/29/18 15:35 CONCLUSION: 1. Small bilateral pleural effusions. 2. Bibasilar atelectasis and/or mild infiltrates. Exam Vital signs: Vital Signs 06/29/18 15:01 06/29/18 15:14 06/29/18 15:38 Pulse Rate 101 H 100 H 94 H Respiratory Rate 20 18 Blood Pressure 118/75 118/75 Pulse Oximetry 99 99 100 06/29/18 18:38 Pulse Rate 88 Respiratory Rate 19 Blood Pressure 131/83 Pulse Oximetry 96 Intake & Output 06/29/18 06/29/18 06/30/18 06:59 18:59 06:59 Intake Total 100 / 100 Balance 100 / 100 Weight 47.627 kg 50 kg Intake: IV 100 / 100 Rocephin Inj 1,000 MG In NS Inj 100 / 100 100 ML @ 200 mls/hr IV.SIG Q24H [facility] Rx#:[id number] Other: Weight On Admission 50 kg Narrative: HEENT/Neuro: No pallor or icterus, tongue moist, PATRICIO, Awake alert oriented 3 , nonfocal grossly, moving all 4 extremities Neck: No JVD Chest/pulmonary: CTA bilaterally Cardiovascular: S1-S2 regular no gallop or murmur GI/abdomen: Soft, nontender, bowel sounds present Extremities: Warm bilaterally, no edema Caprini VTE Risk Assessment Caprini VTE Risk Assessment: Moderate/High Risk (score >= 2) Caprini Risk Assessment Model: Point Value = 1 Point Value = 2 Point Value = 3 Point Value = 5 Age 41-60 Minor surgery BMI > 25 kg/m2 Swollen legs Varicose veins or History of unexplained or recurrent spontaneous Oral contraceptives or hormone replacement Sepsis (< 1 month) Serious lung disease, including pneumonia (< 1 month) Abnormal pulmonary function Acute myocardial infarction Congestive heart failure (< 1 month) History of inflammatory bowel disease Medical patient at bed rest Age 61-74 Arthroscopic surgery Major open surgery (> 45 min) Laparoscopic surgery (> 45 min) Malignancy Confined to bed (> 72 hours) Immobilizing plaster cast Central venous access Age >= 75 History of VTE Family history of VTE Factor V Leiden Prothrombin [id number] Lupus anticoagulant Anticardiolipin antibodies Elevated serum homocysteine Heparin-induced thrombocytopenia Other congenital or acquired thrombophilia Stroke (< 1 month) Elective arthroplasty Hip, pelvis, or leg fracture Acute spinal cord injury (< 1 month) Prophylaxis Regimen: Total Risk Factor Score Risk Level Prophylaxis Regimen 0-1 Low Early ambulation 2 Moderate Order ONE of the following: *Sequential Compression Device (SCD) *Heparin 5000 units SQ BID 3-4 Higher Order ONE of the following medications: *Heparin 5000 units SQ TID *Enoxaparin/Lovenox 40 mg SQ daily (WT < 150 kg, CrCl > 30 mL/min) *Enoxaparin/Lovenox 30 mg SQ daily (WT < 150 kg, CrCl > 10-29 mL/min) *Enoxaparin/Lovenox 30 mg SQ BID (WT < 150 kg, CrCl > 30 mL/min) AND/OR *Sequential Compression Device (SCD) 5 or more Highest Order ONE of the following medications: *Heparin 5000 units SQ TID (Preferred with Epidurals) *Enoxaparin/Lovenox 40 mg SQ daily (WT < 150 kg, CrCl > 30 mL/min) *Enoxaparin/Lovenox 30 mg SQ daily (WT < 150 kg, CrCl > 10-29 mL/min) *Enoxaparin/Lovenox 30 mg SQ BID (WT < 150 kg, CrCl > 30 mL/min) AND *Sequential Compression Device (SCD) Assessment and Plan - Assessment and Plan Plan: 83-year-old female with: Hyponatremia Acute respiratory failure Suspected pneumonia History of C. difficile colitis History of atrial fibrillation Hypothyroidism Plan: -Admit to ICU -Follow serial sodium. -Check TSH, cortisol -Resume salt tabs 1 g 3 times daily p.o. home dose -Continue other home meds including Cardizem, Eliquis for A. fib -Blood cultures ordered. -Empiric antibiotic coverage with IV Rocephin and Zithromax initiated for suspected pneumonia -Check stool for C. difficile. Continue lactobacillus -P.o. diet as tolerated -Follow intake output, monitor and replete elect lites, follow BUN/creatinine. -Watch for hyperglycemia, SSI for glycemic control if needed. -Consult nephrology for hyponatremia. -Consult and transfer to hospitalist service for further medical management, critical care will be signing off in a.m. please reconsult if needed.
[2018-06-29] MEDS: Potassium Chloride 25 MEQ Effervescent Tablet PO SCH (21:25)
[2018-06-29] MEDS: Senna/Docusate Sodium 8.6/50 MG Tablet PO SCH (21:26)
[2018-06-29] MEDS: Polyethylene Glycol 3350 17 GM Packet PO SCH (21:26)
[2018-06-29] MEDS: Ferrous Sulfate 325 MG Tablet PO SCH (21:26)
[2018-06-29] MEDS: Ascorbic Acid 500 MG Tablet PO SCH (21:26)
[2018-06-29] MEDS: Famotidine 20 MG Tablet PO SCH (21:26)
[2018-06-29] MEDS: Magnesium Oxide 400 MG Tablet PO SCH (21:33)
[2018-06-29] MEDS: Sodium Chloride 1 GM Tablet PO SCH (21:35)
[2018-06-29 22:39] LABS: Bacteria,Urine Moderate /hpf; Bilirubin,Urine Negative (Negative); Clarity,Urine Hazy (Clear); Color,Urine Yellow (Yellw/Straw); Glucose,Urine (UA) 50 mg/dL (Negative); Leukocyte Esterase,Urine Small (Negative); Mucus,Urine Few /lpf (Occasional); Nitrite,Urine Negative (Negative); Squamous Epithelial Cell,Urine 4 /hpf (0-5); Transitional Epi Cells,Urine 3 /hpf
[2018-06-30] MEDS ORDERED: Chlorhexidine Gluconate 2% 1 Pack (2 Cloths) TOPICAL PRN (04:00)
--- NOTE | 2018-06-30 04:16 | XR ---
EXAM DATE: 06/30/2018 4:11 AM EST AGE/SEX: 83 years / Female INDICATIONS: Shortness of breath, possible pulmonary disease. CLINICAL DATA: This is the patient's subsequent encounter. Patient reports that signs and symptoms h ave been present for 2 days and indicates a pain score of 0/10. MEDICAL/SURGICAL HISTORY: Hypertension. Hypothyroidism. . Hip surgery. COMPARISON: [facility] [place], CHEST 1V SINGLE AP, 06/29/2018. . FINDINGS: Portable AP views of the chest demonstrate a normal-sized cardiac silhouette with calcification of th e aorta. Multiple EKG lines overlie the patient. There are small to moderate-sized bibasilar pleural- parenchymal opacities, slightly increased from the prior study. No pneumothorax is identified. Bones are under mineralized but demonstrate no acute finding. CONCLUSION: The bibasilar opacities have slightly increased and represent pleural effusions with associated volum e loss and/or airspace consolidation. Electronically signed by: Luis A Negrete MD 06/30/2018 4:15 AM EST
[2018-06-30 05:00] LABS: Hematocrit 33.7 % (35.0-46.0); Hemoglobin 11.7 gm/dL (11.6-15.3); Lymph # (Auto) 0.6 th/mm3 (1.0-4.8); Lymph % (Auto) 6.5 % (9.0-44.0); Mean Corpuscular HGB Conc 34.8 % (32.0-36.0); Mean Corpuscular Volume 97.8 fL (80.0-100.0); Mean Platelet Volume 8.6 fL (7.0-11.0); Mono # (Auto) 0.3 th/mm3 (0.0-0.9); Mono % (Auto) 3.1 % (0.0-8.0); Neut % (Auto) 90.4 % (16.0-70.0); Platelet Count 256 th/mm3 (150-450); Red Blood Count 3.45 mil/mm3 (4.00-5.30); Red Cell Distribution Width 14.8 % (11.6-17.2); White Blood Count 8.8 th/mm3 (4.0-11.0)
[2018-06-30] MEDS: Insulin NovoLIN Regular Correctional Sugar Inj SQ SCH ×3 (05:40→18:55)
[2018-06-30] MEDS: Chlorhexidine Gluconate 2% 1 Pack (2 Cloths) TOPICAL SCH (05:41)
[2018-06-30 05:43] LABS: Anion Gap 9 meq/L (5-15); Blood Urea Nitrogen 5 mg/dL (7-18); Calcium 8.3 mg/dL (8.5-10.1); Carbon Dioxide 25.7 meq/L (21.0-32.0); Chloride 80 meq/L (98-107); Glomerular Filtration Rate Greater Than 89 mL/min (>89); Glucose,Random 124 mg/dL (74-106); Magnesium 1.3 mg/dL (1.5-2.5); Potassium 4.1 meq/L (3.5-5.1)
[2018-06-30] MEDS: Sod Chloride 0.9% Inj 1,000 ML IV.CONT SCH ×2 (05:44→18:44)
[2018-06-30 05:49] LABS: Sodium 115 meq/L (136-145)
--- NOTE | 2018-06-30 09:07 | P.CONNP ---
<Chetna Rodriguez - Last Filed: 06/30/18 09:10> History of Present Illness Service: Nephrology Consult date: 06/30/18 Requesting Physician: Miguel Mcarthur Reason for Consult: Hyponatremia Primary Care Provider: Esteban Spears MD Chief Complaint: shortness of breath History of Present Illness: Patient is a 83-year-old female with a past medical history of hypertension, chronic hyponatremia, hypothyroidism, and Atrial fibrillation. Brought to the ER with history of shortness of breath going on for 2 days. She was previously admitted to the hospital in March 2018 after being treated for C. difficile colitis. She has been having some loose bowel movements off and on since then. She has also had problems with hyponatremia and is supposed to be on 3 salt tabs daily however just takes 1 daily now. Nephrology is consulted for hyponatremia with a sodium level 115. On admission 111. Patient shortness of breath has improved, denies any chest pain, nausea, or vomiting. Reports that at home she has had a very poor appetite and does not eat very much. Also reports dysuria. Review of Systems All other systems reviewed negative except as stated in HPI PMFSH - History History 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 - Medical History Medical History: Medical History (Last Reviewed 06/29/18 @ 23:12 by Steve Yeboah RN) Hypothyroidism (Chronic) Hyponatremia (Acute) Hypertension (Chronic) History of fracture of arm - Surgical History Surgical History: Surgical History (Last Reviewed 06/29/18 @ 23:12 by Steve Yeboah RN) History of hip surgery (Acute) History of appendectomy - Family History Family History: Family History (Last Reviewed 06/29/18 @ 18:21 by ASIF August) Mother Osteoarthritis Other Stroke - Tobacco History Second Hand Smoke Exposure: No Smoking Status: Former smoker Tobacco Type: Cigarettes - Alcohol History How Often Do You Have a Drink Containing Alcohol: Monthly or less - Substance Use History Substance History: No History of Abuse - Travel History Recent Travel in the [place] Within the Last 8 Weeks: No Recent Travel Out of the Country Within the Last 8 Weeks: No - Immunization History Tetanus Immunization: >5 Years Hx Influenza Vaccine This Season: No Medications and Allergies Allergies Allergy/AdvReac Type Severity Reaction Status Date / Time lactose Allergy Unknown Abdominal Verified 04/10/18 01:42 Pain Home Medications Medication Instructions Recorded Confirmed Type acidophilus-sporogenes 35 mg PO DAILY 06/29/18 06/29/18 History apixaban 2.5 mg PO BID 06/29/18 06/29/18 History ascorbic acid (vitamin C) 500 mg PO BID 06/29/18 06/29/18 History diltiazem HCl 120 mg PO DAILY 06/29/18 06/29/18 History ergocalciferol (vitamin D2) 50,000 unit PO QWEEK 06/29/18 06/30/18 History ferrous sulfate 325 mg PO BID 06/29/18 06/29/18 History folic acid 1 mg PO DAILY 06/29/18 06/29/18 History levothyroxine 25 mcg PO DAILY 06/29/18 06/29/18 History magnesium oxide 800 mg PO BID 06/29/18 06/29/18 History multivitamin 1 tab PO DAILY 06/29/18 06/29/18 History pantoprazole [Protonix] 20 mg PO DAILY 06/29/18 06/29/18 History potassium bicarb and chloride 25 meq PO BID 06/29/18 06/29/18 History sodium chloride 1,000 mg PO TID 06/29/18 06/29/18 History Active Medications: Active Medications Acetaminophen (Tylenol) 650 mg PO Q6H PRN PRN Reason: TEMPERATURE > 101 F Albuterol (Duoneb Neb (Prn)) 1 ampul NEB Q2HR NEB PRN PRN Reason: WHEEZING Albuterol (Duoneb Neb (Jaycee)) 1 ampul NEB Q6HR NEB [facility] Last Admin: 06/30/18 08:19 Dose: 1 ampul Apixaban (Eliquis) 2.5 mg PO Q12H [facility] Last Admin: 06/30/18 05:34 Dose: 2.5 mg Ascorbic Acid (Vitamin C) 500 mg PO BID [facility] Last Admin: 06/29/18 21:26 Dose: 500 mg Bisacodyl (Dulcolax Supp) 10 mg RECTAL DAILY PRN PRN Reason: if no BM in last 24h Chlorhexidine Gluconate (Chlorhexidine 2% Cloth) 3 pack TOPICAL DAILY@0400 [facility] Stop: 07/05/18 03:59 Last Admin: 06/30/18 05:41 Dose: 3 pack Chlorhexidine Gluconate (Chlorhexidine 2% Cloth) 3 pack TOPICAL DAILY@0400 PRN PRN Reason: Extra cloth needed Stop: 07/05/18 03:59 Dextrose (D50w Vial) 50 ml IV.PUSH UNSCH PRN PRN Reason: PER HYPOGLYCEMIA PROTOCOL Diltiazem HCl (Cardizem Cd 24hr) 120 mg PO DAILY [facility] Ergocalciferol (Vitamin D2) 50,000 unit PO Q7D [facility] Famotidine (Pepcid) 20 mg PO BID [facility] Last Admin: 06/29/18 21:26 Dose: 20 mg Ferrous Sulfate (Ferosul) 325 mg PO BID [facility] Last Admin: 06/29/18 21:26 Dose: 325 mg Folic Acid (Folic Acid) 1 mg PO DAILY [facility] Glucagon (Glucagon Inj) 1 mg OTHER PRN PRN PRN Reason: for Hypoglycemia Protocol Hydromorphone HCl (Dilaudid Pf Inj) 0.25 mg IV.PUSH Q1H PRN PRN Reason: pain 8-10 or not taking po Ceftriaxone Sodium 1,000 mg/ (Sodium Chloride) 100 mls @ 200 mls/hr IV.SIG Q24H [facility] Last Infusion: 06/29/18 19:02 Dose: Infused Azithromycin 500 mg/ Sodium (Chloride) 250 mls @ 250 mls/hr IV.SIG Q24H [facility] Last Infusion: 06/29/18 20:03 Dose: Infused Magnesium Sulfate 4 gm/ Sodium (Chloride) 100 mls @ 50 mls/hr IV.SIG UNSCH PRN PRN Reason: For Magnesium 0.9 - 1.1 mg/dL Potassium Chloride (Kcl 40 Meq Premix Inj) 40 meq in 100 mls @ 25 mls/hr IV.SIG Q2H PRN PRN Reason: For Potassium 2.8 - 3.2 mEq/L Potassium Chloride (Kcl 20 Meq Premix Inj) 20 meq in 100 mls @ 50 mls/hr IV.SIG Q2H PRN PRN Reason: For Potassium 3.3 - 3.5 mEq/L Potassium Chloride (Kcl 40 Meq Premix Inj) 40 meq in 100 mls @ 25 mls/hr IV.SIG UNSCH PRN PRN Reason: For Potassium 3.3 - 3.5 mEq/L Potassium Phosphate 30 mmol/ (Sodium Chloride) 260 mls @ 42 mls/hr IV.SIG UNSCH PRN PRN Reason: SEE LABEL COMMENTS Sodium Phosphate 30 mmol/ (Sodium Chloride) 260 mls @ 42 mls/hr IV.SIG UNSCH PRN PRN Reason: For Phosphorus < 2.5 mg/dL Magnesium Sulfate 2 gm/ Sodium (Chloride) 100 mls @ 50 mls/hr IV.SIG UNSCH PRN PRN Reason: For Magnesium 1.2 - 1.6 mg/dL Potassium Chloride (Kcl 20 Meq Premix Inj) 20 meq in 100 mls @ 50 mls/hr IV.SIG Q2H PRN PRN Reason: For Potassium 2.8 - 3.2 mEq/L Sodium Chloride (Ns Inj) 1,000 mls @ 84 mls/hr IV.CONT .[id number] [facility] Last Admin: 06/30/18 05:44 Dose: 84 mls/hr Insulin Human Regular (Novolin R Correctional Sugar Inj) 0 units SQ Q6HR [facility]; Protocol Last Admin: 06/30/18 05:40 Dose: 2 units Lactobacillus Acidophilus (Lactinex) 1 tab PO DAILY [facility] Lactulose (Lactulose Liq) 30 ml PO BID [facility] Last Admin: 06/29/18 21:26 Dose: 30 ml Levothyroxine Sodium (Synthroid) 25 mcg PO DAILY@0600 [facility] Last Admin: 06/30/18 05:35 Dose: 25 mcg Magnesium Oxide (Mag-Ox) 800 mg PO UNSCH PRN PRN Reason: For Magnesium 1.2 - 1.6 mg/dL Magnesium Oxide (Mag-Ox) 800 mg PO BID [facility] Last Admin: 06/29/18 21:33 Dose: 800 mg Multivitamins (Theragran) 1 tab PO DAILY [facility] Ondansetron HCl (Zofran Inj) 4 mg IV.PUSH Q6H PRN PRN Reason: NAUSEA OR VOMITING Oxycodone HCl (Roxicodone) 5 mg PO Q4H PRN PRN Reason: Pain 1-5 Pantoprazole Sodium (Protonix) 20 mg PO DAILY [facility] Polyethylene Glycol (Miralax) 17 gm PO BID [facility] Last Admin: 06/29/18 21:26 Dose: 17 gm Potassium Bicarb/Potassium Chloride (K-Lyte Cl Eff) 50 meq PO UNSCH PRN PRN Reason: For Potassium 3.3 - 3.5 mEq/L Potassium Bicarb/Potassium Chloride (K-Lyte Cl Eff) 25 meq PO BID [facility] Last Admin: 06/29/18 21:25 Dose: 25 meq Potassium Phosphate (K-Phos Original) 2,000 mg PO Q4H PRN PRN Reason: Phosphorus Less Than 2.5 mg/dL Potassium Phosphate (K-Phos Original) 2,000 mg PO UNSCH PRN PRN Reason: SEE LABEL COMMENTS Senna/Docusate Sodium (Omaira-Colace) 1 tab PO BID [facility] Last Admin: 06/29/18 21:26 Dose: 1 tab Sodium Chloride (Ns Flush) 2 ml IV.FLUSH UNSCH PRN PRN Reason: FLUSH AFTER USING IV ACCESS Sodium Chloride (Sodium Chloride) 1 gm PO TID [facility] Last Admin: 06/29/18 21:35 Dose: 1 gm Sodium Chloride (Ns Flush) 2 ml IV.FLUSH BID [facility] Exam Vital signs: Vital Signs 06/29/18 15:01 06/29/18 15:14 06/29/18 15:38 Temperature Pulse Rate 101 H 100 H 94 H Respiratory Rate 20 18 Blood Pressure 118/75 118/75 Pulse Oximetry 99 99 100 06/29/18 18:38 06/29/18 19:13 06/29/18 19:14 Temperature Pulse Rate 88 89 88 Respiratory Rate 19 22 Blood Pressure 131/83 100/67 Pulse Oximetry 96 97 06/29/18 20:00 06/29/18 21:00 06/29/18 21:13 Temperature 97.6 F Pulse Rate 121 H 110 H Respiratory Rate 18 22 22 Blood Pressure 110/67 84/56 L Pulse Oximetry 100 98 95 06/29/18 22:00 06/29/18 23:00 06/29/18 23:01 Temperature Pulse Rate 79 108 H 112 H Respiratory Rate 18 20 20 Blood Pressure 135/61 121/67 Pulse Oximetry 100 100 100 06/30/18 00:00 06/30/18 01:00 06/30/18 01:04 Temperature 97.3 F L Pulse Rate 114 H 113 H Respiratory Rate 17 18 20 Blood Pressure 117/73 127/66 Pulse Oximetry 100 94 L 96 06/30/18 02:00 06/30/18 03:00 06/30/18 04:00 Temperature 97.6 F Pulse Rate 108 H 64 65 Respiratory Rate 23 14 20 Blood Pressure 118/64 123/56 L 121/62 Pulse Oximetry 97 100 100 06/30/18 04:23 06/30/18 05:00 06/30/18 06:00 Temperature Pulse Rate 68 83 84 Respiratory Rate 16 18 18 Blood Pressure 121/56 L 120/58 L Pulse Oximetry 100 100 06/30/18 08:20 Temperature Pulse Rate 77 Respiratory Rate 24 Blood Pressure Pulse Oximetry 100 Intake & Output 06/29/18 06/30/18 06/30/18 18:59 06:59 18:59 Intake Total 1750 / 1750 Output Total 600 / 600 Balance 1150 / 1150 Weight 47.627 kg 50 kg Intake: IV 1350 / 1350 NS Inj 1,000 ML @ 84 mls/hr IV. 1000 / 1000 CONT .[id number] [facility] Rx#:[id number] Azithromycin Inj 500 MG In NS 250 / 250 Inj 250 ML @ 250 mls/hr IV.SIG Q24H [facility] Rx#:[id number] Rocephin Inj 1,000 MG In NS Inj 100 / 100 100 ML @ 200 mls/hr IV.SIG Q24H [facility] Rx#:[id number] Oral 400 / 400 Output: Urine 600 / 600 Other: Date of Last Bowel Movement 06/29/18 Weight On Admission 50 kg Narrative: GENERAL: Alert and oriented. SKIN: Warm and dry. NECK: Supple, trachea midline. No JVD. CARDIOVASCULAR: Regular rate and rhythm without murmurs, gallops, or rubs. RESPIRATORY: Breath sounds equal bilaterally. No accessory muscle use. GASTROINTESTINAL: Abdomen soft, non-tender, nondistended. MUSCULOSKELETAL: No cyanosis, or edema. BACK: Nontender without obvious deformity. No CVA tenderness. Results - Lab Results 06/30/18 04:47 06/30/18 04:47 Most recent lab results Calcium 8.3 mg/dL (8.5-10.1) L 06/30/18 04:47 Phosphorus 3.0 mg/dL (2.5-4.9) 06/30/18 04:47 Magnesium 1.3 mg/dL (1.5-2.5) L 06/30/18 04:47 Assessment and Plan - Assessment (1) Hyponatremia Code(s): E87.1 - Hypo-osmolality and hyponatremia Status: Acute Plan: Chronic hyponatremia Has history of chronic hyponatremia, similar low numbers noted in 07/15. Could possible be related poor dietary intake, diarrhea, and non compliance with sodium chloride replacement. Also could be SIADH, or low effective arterial blood volume. Urine sodium level at 11, Serum Osm 235, and urine osm 453 Sodium levels 111 ->110 ->114 ->115 with IVF administration. Recommend to continue IVF as patient tolerates and sodium chloride 1 gram TID. Will check orthostatic blood pressures. Monitor I+O Continue to monitor sodium level every 4 hours, helping to prevent rapid correction of sodium levels (2) Acute UTI Code(s): N39.0 - Urinary tract infection, site not specified Status: Acute Plan: Has received Rocephin, culture pending. (3) Hypothyroidism Code(s): E03.9 - Hypothyroidism, unspecified Status: Chronic Plan: Continue levothyroxine. (4) Pneumonia Code(s): J18.9 - Pneumonia, unspecified organism Status: Acute Plan: On azithromycin and rocephin. (5) Pleural effusion Code(s): J90 - Pleural effusion, not elsewhere classified Status: Acute Plan: Shortness of breath improving, chest xray with increasing pleural effusion. <Lizzie Duarte - Last Filed: 06/30/18 09:53> History of Present Illness Primary Care Provider: Esteban Spears MD [facility] - Medical History Medical History: Medical History (Last Reviewed 06/29/18 @ 23:12 by Steve Yeboah RN) Hypothyroidism (Chronic) Hyponatremia (Acute) Hypertension (Chronic) History of fracture of arm - Surgical History Surgical History: Surgical History (Last Reviewed 06/29/18 @ 23:12 by Steve Yeboah RN) History of hip surgery (Acute) History of appendectomy - Family History Family History: Family History (Last Reviewed 06/29/18 @ 18:21 by ASIF August) Mother Osteoarthritis Other Stroke Medications and Allergies Active Medications: Active Medications Acetaminophen (Tylenol) 650 mg PO Q6H PRN PRN Reason: TEMPERATURE > 101 F Albuterol (Duoneb Neb (Prn)) 1 ampul NEB Q2HR NEB PRN PRN Reason: WHEEZING Albuterol (Duoneb Neb (Jaycee)) 1 ampul NEB Q6HR NEB [facility] Last Admin: 06/30/18 08:19 Dose: 1 ampul Apixaban (Eliquis) 2.5 mg PO Q12H [facility] Last Admin: 06/30/18 05:34 Dose: 2.5 mg Ascorbic Acid (Vitamin C) 500 mg PO BID [facility] Last Admin: 06/29/18 21:26 Dose: 500 mg Bisacodyl (Dulcolax Supp) 10 mg RECTAL DAILY PRN PRN Reason: if no BM in last 24h Chlorhexidine Gluconate (Chlorhexidine 2% Cloth) 3 pack TOPICAL DAILY@0400 [facility] Stop: 07/05/18 03:59 Last Admin: 06/30/18 05:41 Dose: 3 pack Chlorhexidine Gluconate (Chlorhexidine 2% Cloth) 3 pack TOPICAL DAILY@0400 PRN PRN Reason: Extra cloth needed Stop: 07/05/18 03:59 Dextrose (D50w Vial) 50 ml IV.PUSH UNSCH PRN PRN Reason: PER HYPOGLYCEMIA PROTOCOL Diltiazem HCl (Cardizem Cd 24hr) 120 mg PO DAILY [facility] Ergocalciferol (Vitamin D2) 50,000 unit PO Q7D [facility] Famotidine (Pepcid) 20 mg PO BID [facility] Last Admin: 06/29/18 21:26 Dose: 20 mg Ferrous Sulfate (Ferosul) 325 mg PO BID [facility] Last Admin: 06/29/18 21:26 Dose: 325 mg Folic Acid (Folic Acid) 1 mg PO DAILY [facility] Glucagon (Glucagon Inj) 1 mg OTHER PRN PRN PRN Reason: for Hypoglycemia Protocol Hydromorphone HCl (Dilaudid Pf Inj) 0.25 mg IV.PUSH Q1H PRN PRN Reason: pain 8-10 or not taking po Ceftriaxone Sodium 1,000 mg/ (Sodium Chloride) 100 mls @ 200 mls/hr IV.SIG Q24H [facility] Last Infusion: 06/29/18 19:02 Dose: Infused Azithromycin 500 mg/ Sodium (Chloride) 250 mls @ 250 mls/hr IV.SIG Q24H [facility] Last Infusion: 06/29/18 20:03 Dose: Infused Magnesium Sulfate 4 gm/ Sodium (Chloride) 100 mls @ 50 mls/hr IV.SIG UNSCH PRN PRN Reason: For Magnesium 0.9 - 1.1 mg/dL Potassium Chloride (Kcl 40 Meq Premix Inj) 40 meq in 100 mls @ 25 mls/hr IV.SIG Q2H PRN PRN Reason: For Potassium 2.8 - 3.2 mEq/L Potassium Chloride (Kcl 20 Meq Premix Inj) 20 meq in 100 mls @ 50 mls/hr IV.SIG Q2H PRN PRN Reason: For Potassium 3.3 - 3.5 mEq/L Potassium Chloride (Kcl 40 Meq Premix Inj) 40 meq in 100 mls @ 25 mls/hr IV.SIG UNSCH PRN PRN Reason: For Potassium 3.3 - 3.5 mEq/L Potassium Phosphate 30 mmol/ (Sodium Chloride) 260 mls @ 42 mls/hr IV.SIG UNSCH PRN PRN Reason: SEE LABEL COMMENTS Sodium Phosphate 30 mmol/ (Sodium Chloride) 260 mls @ 42 mls/hr IV.SIG UNSCH PRN PRN Reason: For Phosphorus < 2.5 mg/dL Magnesium Sulfate 2 gm/ Sodium (Chloride) 100 mls @ 50 mls/hr IV.SIG UNSCH PRN PRN Reason: For Magnesium 1.2 - 1.6 mg/dL Potassium Chloride (Kcl 20 Meq Premix Inj) 20 meq in 100 mls @ 50 mls/hr IV.SIG Q2H PRN PRN Reason: For Potassium 2.8 - 3.2 mEq/L Sodium Chloride (Ns Inj) 1,000 mls @ 84 mls/hr IV.CONT .[id number] [facility] Last Admin: 06/30/18 05:44 Dose: 84 mls/hr Insulin Human Regular (Novolin R Correctional Sugar Inj) 0 units SQ Q6HR [facility]; Protocol Last Admin: 06/30/18 05:40 Dose: 2 units Lactobacillus Acidophilus (Lactinex) 1 tab PO DAILY [facility] Lactulose (Lactulose Liq) 30 ml PO BID [facility] Last Admin: 06/29/18 21:26 Dose: 30 ml Levothyroxine Sodium (Synthroid) 25 mcg PO DAILY@0600 [facility] Last Admin: 06/30/18 05:35 Dose: 25 mcg Magnesium Oxide (Mag-Ox) 800 mg PO UNSCH PRN PRN Reason: For Magnesium 1.2 - 1.6 mg/dL Magnesium Oxide (Mag-Ox) 800 mg PO BID [facility] Last Admin: 06/29/18 21:33 Dose: 800 mg Multivitamins (Theragran) 1 tab PO DAILY [facility] Ondansetron HCl (Zofran Inj) 4 mg IV.PUSH Q6H PRN PRN Reason: NAUSEA OR VOMITING Oxycodone HCl (Roxicodone) 5 mg PO Q4H PRN PRN Reason: Pain 1-5 Pantoprazole Sodium (Protonix) 20 mg PO DAILY [facility] Polyethylene Glycol (Miralax) 17 gm PO BID [facility] Last Admin: 06/29/18 21:26 Dose: 17 gm Potassium Bicarb/Potassium Chloride (K-Lyte Cl Eff) 50 meq PO UNSCH PRN PRN Reason: For Potassium 3.3 - 3.5 mEq/L Potassium Bicarb/Potassium Chloride (K-Lyte Cl Eff) 25 meq PO BID [facility] Last Admin: 06/29/18 21:25 Dose: 25 meq Potassium Phosphate (K-Phos Original) 2,000 mg PO Q4H PRN PRN Reason: Phosphorus Less Than 2.5 mg/dL Potassium Phosphate (K-Phos Original) 2,000 mg PO UNSCH PRN PRN Reason: SEE LABEL COMMENTS Senna/Docusate Sodium (Omaira-Colace) 1 tab PO BID [facility] Last Admin: 06/29/18 21:26 Dose: 1 tab Sodium Chloride (Ns Flush) 2 ml IV.FLUSH UNSCH PRN PRN Reason: FLUSH AFTER USING IV ACCESS Sodium Chloride (Sodium Chloride) 1 gm PO TID [facility] Last Admin: 06/29/18 21:35 Dose: 1 gm Sodium Chloride (Ns Flush) 2 ml IV.FLUSH BID [facility] Exam Vital signs: Vital Signs 06/29/18 15:01 06/29/18 15:14 06/29/18 15:38 Temperature Pulse Rate 101 H 100 H 94 H Respiratory Rate 20 18 Blood Pressure 118/75 118/75 Pulse Oximetry 99 99 100 06/29/18 18:38 06/29/18 19:13 06/29/18 19:14 Temperature Pulse Rate 88 89 88 Respiratory Rate 19 22 Blood Pressure 131/83 100/67 Pulse Oximetry 96 97 06/29/18 20:00 06/29/18 21:00 06/29/18 21:13 Temperature 97.6 F Pulse Rate 121 H 110 H Respiratory Rate 18 22 22 Blood Pressure 110/67 84/56 L Pulse Oximetry 100 98 95 06/29/18 22:00 06/29/18 23:00 06/29/18 23:01 Temperature Pulse Rate 79 108 H 112 H Respiratory Rate 18 20 20 Blood Pressure 135/61 121/67 Pulse Oximetry 100 100 100 06/30/18 00:00 06/30/18 01:00 06/30/18 01:04 Temperature 97.3 F L Pulse Rate 114 H 113 H Respiratory Rate 17 18 20 Blood Pressure 117/73 127/66 Pulse Oximetry 100 94 L 96 06/30/18 02:00 06/30/18 03:00 06/30/18 04:00 Temperature 97.6 F Pulse Rate 108 H 64 65 Respiratory Rate 23 14 20 Blood Pressure 118/64 123/56 L 121/62 Pulse Oximetry 97 100 100 06/30/18 04:23 06/30/18 05:00 06/30/18 06:00 Temperature Pulse Rate 68 83 84 Respiratory Rate 16 18 18 Blood Pressure 121/56 L 120/58 L Pulse Oximetry 100 100 06/30/18 08:20 Temperature Pulse Rate 77 Respiratory Rate 24 Blood Pressure Pulse Oximetry 100 Intake & Output 06/29/18 06/30/18 06/30/18 18:59 06:59 18:59 Intake Total 1750 / 1750 Output Total 600 / 600 Balance 1150 / 1150 Weight 47.627 kg 50 kg Intake: IV 1350 / 1350 NS Inj 1,000 ML @ 84 mls/hr IV. 1000 / 1000 CONT .[id number] [facility] Rx#:[id number] Azithromycin Inj 500 MG In NS 250 / 250 Inj 250 ML @ 250 mls/hr IV.SIG Q24H [facility] Rx#:[id number] Rocephin Inj 1,000 MG In NS Inj 100 / 100 100 ML @ 200 mls/hr IV.SIG Q24H [facility] Rx#:[id number] Oral 400 / 400 Output: Urine 600 / 600 Other: Date of Last Bowel Movement 06/29/18 Weight On Admission 50 kg Results - Lab Results 06/30/18 04:47 06/30/18 04:47 Most recent lab results Calcium 8.3 mg/dL (8.5-10.1) L 06/30/18 04:47 Phosphorus 3.0 mg/dL (2.5-4.9) 06/30/18 04:47 Magnesium 1.3 mg/dL (1.5-2.5) L 06/30/18 04:47 Assessment and Plan - Assessment (1) Hyponatremia Code(s): E87.1 - Hypo-osmolality and hyponatremia Status: Acute Plan: Patient seen and examined, agree with above, Has chronic Hyponatremia and electrolyte disorder, BP is stable, clinically euvolemic, no confusion. On IVF with NS. Sodium is now 115. Also on oral NaCl. She has same problem last admission in [place]. 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 Continue Nacl PO and IVF. I will ask Dr. Miller to follow from tomorrow. (2) Acute UTI Code(s): N39.0 - Urinary tract infection, site not specified Status: Acute (3) Hypothyroidism Code(s): E03.9 - Hypothyroidism, unspecified Status: Chronic (4) Pneumonia Code(s): J18.9 - Pneumonia, unspecified organism Status: Acute (5) Pleural effusion Code(s): J90 - Pleural effusion, not elsewhere classified Status: Acute <Chetna Rodriguez - Last Filed: 06/30/18 09:10> (3) Hypothyroidism Qualifiers: Hypothyroidism type: unspecified Qualified Code(s): E03.9 - Hypothyroidism, unspecified (4) Pneumonia Qualifiers: Pneumonia type: due to unspecified organism Laterality: unspecified laterality Lung location: lower lobe of lung Qualified Code(s): J18.1 - Lobar pneumonia, unspecified organism <Lizzie Duarte - Last Filed: 06/30/18 09:53> (3) Hypothyroidism Qualifiers: Hypothyroidism type: unspecified Qualified Code(s): E03.9 - Hypothyroidism, unspecified (4) Pneumonia Qualifiers: Pneumonia type: due to unspecified organism Laterality: unspecified laterality Lung location: lower lobe of lung Qualified Code(s): J18.1 - Lobar pneumonia, unspecified organism
--- NOTE | 2018-06-30 10:50 | P.PNIM ---
Subjective Interval history: Chief Complaint: shortness of breath History of Present Illness: 83-year-old female was brought to the ER with history of shortness of breath going on for 2 days. She was previously admitted to the hospital in March 2018 after being treated for C. difficile colitis was subsequently discharged to rehab and then home. She has been having some loose bowel movements off and on since then. She has also had problems with hyponatremia and is supposed to be on 3 salt tabs daily however just takes 1 daily now. Patient was brought to the ER and placed on nasal cannula. On workup she was noted to have a sodium of 111. . She was otherwise completely awake and alert not in any acute distress without any documented hypotension. Patient denied any fevers or chills. Denied any abdominal pain nausea vomiting, melena or rectal bleeding. She does have a history of atrial fibrillation and takes Eliquis. 12-2 TRANSFERRED TO OUR SERVICE TODAY STILL HAS HYPONATREMIA OF 115 CAN TRANSFER OUT OF ICU NO NEW COMPLAINTS ORIENTED X3 TALKATIVE AND COOPERATIVE SEEN BY NEPHROLOGY CONTINUE ON NACL TABS TID SLOW IMPROVEMENT IN HYPONATREMIA AM LABS PT AND OT INCREASE ACTIVITY NOT SOB Physical Exam Vital signs: Vital Signs 06/29/18 15:01 06/29/18 15:14 06/29/18 15:38 Temperature Pulse Rate 101 H 100 H 94 H Respiratory Rate 20 18 Blood Pressure 118/75 118/75 Pulse Oximetry 99 99 100 06/29/18 18:38 06/29/18 19:13 06/29/18 19:14 Temperature Pulse Rate 88 89 88 Respiratory Rate 19 22 Blood Pressure 131/83 100/67 Pulse Oximetry 96 97 06/29/18 20:00 06/29/18 21:00 06/29/18 21:13 Temperature 97.6 F Pulse Rate 121 H 110 H Respiratory Rate 18 22 22 Blood Pressure 110/67 84/56 L Pulse Oximetry 100 98 95 06/29/18 22:00 06/29/18 23:00 06/29/18 23:01 Temperature Pulse Rate 79 108 H 112 H Respiratory Rate 18 20 20 Blood Pressure 135/61 121/67 Pulse Oximetry 100 100 100 06/30/18 00:00 06/30/18 01:00 06/30/18 01:04 Temperature 97.3 F L Pulse Rate 114 H 113 H Respiratory Rate 17 18 20 Blood Pressure 117/73 127/66 Pulse Oximetry 100 94 L 96 06/30/18 02:00 06/30/18 03:00 06/30/18 04:00 Temperature 97.6 F Pulse Rate 108 H 64 65 Respiratory Rate 23 14 20 Blood Pressure 118/64 123/56 L 121/62 Pulse Oximetry 97 100 100 06/30/18 04:23 06/30/18 05:00 06/30/18 06:00 Temperature Pulse Rate 68 83 84 Respiratory Rate 16 18 18 Blood Pressure 121/56 L 120/58 L Pulse Oximetry 100 100 06/30/18 08:20 Temperature Pulse Rate 77 Respiratory Rate 24 Blood Pressure Pulse Oximetry 100 Intake & Output 06/29/18 06/30/18 06/30/18 18:59 06:59 18:59 Intake Total 1750 / 1750 Output Total 600 / 600 Balance 1150 / 1150 Weight 47.627 kg 50 kg Intake: IV 1350 / 1350 NS Inj 1,000 ML @ 84 mls/hr IV. 1000 / 1000 CONT .[id number] [facility] Rx#:[id number] Azithromycin Inj 500 MG In NS 250 / 250 Inj 250 ML @ 250 mls/hr IV.SIG Q24H [facility] Rx#:[id number] Rocephin Inj 1,000 MG In NS Inj 100 / 100 100 ML @ 200 mls/hr IV.SIG Q24H [facility] Rx#:[id number] Oral 400 / 400 Output: Urine 600 / 600 Other: Date of Last Bowel Movement 06/29/18 Weight On Admission 50 kg Narrative: GENERAL: Awake alert and oriented x3 talkative and cooperative appears stated age SKIN: Warm and dry. HEAD: Atraumatic. Normocephalic. EYES: Pupils equal and round. No scleral icterus. No injection or drainage. EOMI ENT: No nasal bleeding or discharge. Mucous membranes pink and moist. Tongue is midline NECK: Trachea midline. No JVD. Supple CARDIOVASCULAR: Regular rate and rhythm. S1-S2 no S3 or S4 RESPIRATORY: No accessory muscle use. Clear to auscultation. Breath sounds equal bilaterally. GASTROINTESTINAL: Abdomen soft, non-tender, nondistended. Hepatic and splenic margins not palpable. MUSCULOSKELETAL: Extremities without clubbing, cyanosis, or edema. No obvious deformities. NEUROLOGICAL: Awake and alert. No obvious cranial nerve deficits. Motor grossly within normal limits. Five out of 5 muscle strength in the arms and legs. Normal speech. PSYCHIATRIC: Appropriate mood and affect; insight and judgment normal. Results - Labs CBC & Chem 7: 06/30/18 04:47 06/30/18 04:47 Laboratory Results - last 24 hr 06/29/18 06/29/18 06/29/18 15:40 15:40 15:40 WBC 18.3 H RBC 3.76 L Hgb 12.8 Hct 37.5 MCV 99.9 MCH 34.0 MCHC 34.0 RDW 15.0 Plt Count 306 MPV 8.9 Neut % (Auto) 86.2 H Lymph % (Auto) 6.7 L [place] % (Auto) 6.8 Eos % (Auto) 0.1 Baso % (Auto) 0.2 Neut # (Auto) 15.8 H Lymph # (Auto) 1.2 [place] # (Auto) 1.2 H Eos # (Auto) 0.0 Baso # (Auto) 0.0 WBC Differential . Differential Comment Auto diff final PT 12.7 H INR 1.3 APTT 40.7 H Sodium 111 L* Potassium 4.0 Chloride 75 L Carbon Dioxide 24.8 Anion Gap 11 BUN 4 L Creatinine 0.47 L Estimated GFR Greater than 89 POC Glucose Random Glucose 140 H Osmolality Calcium 8.0 L Phosphorus Magnesium Total Bilirubin 0.6 AST 23 ALT 13 Alkaline Phosphatase 109 Total Creatine Kinase 33 Troponin I Less than 0.02 L B-Natriuretic Peptide Total Protein 7.0 Albumin 2.4 L TSH Cortisol Urine Color Urine Clarity Urine pH Ur Specific [place] Urine Protein Urine Glucose (UA) Urine Ketones Urine Occult Blood Urine Nitrate Urine Bilirubin Urine Urobilinogen Ur Leukocyte Esterase Urine RBC Urine WBC Ur Squamous Epith Cells Ur Transition Epith Cell Urine Bacteria Granular Casts Urine Mucus Micro UA Comment Ur Microscopic Review Urine Culture Comments Urine Osmolality Ur Random Creatinine Ur Random Sodium Nasal Screen MRSA (PCR) 06/29/18 06/29/18 06/29/18 15:40 15:40 15:40 WBC RBC Hgb Hct MCV MCH MCHC RDW Plt Count MPV Neut % (Auto) Lymph % (Auto) [place] % (Auto) Eos % (Auto) Baso % (Auto) Neut # (Auto) Lymph # (Auto) [place] # (Auto) Eos # (Auto) Baso # (Auto) WBC Differential Differential Comment PT INR APTT Cancelled Sodium Potassium Chloride Carbon Dioxide Anion Gap BUN Creatinine Estimated GFR POC Glucose Random Glucose Osmolality 235 L Calcium Phosphorus Magnesium Total Bilirubin AST ALT Alkaline Phosphatase Total Creatine Kinase Troponin I B-Natriuretic Peptide 189 H Total Protein Albumin TSH Cortisol Urine Color Urine Clarity Urine pH Ur Specific [place] Urine Protein Urine Glucose (UA) Urine Ketones Urine Occult Blood Urine Nitrate Urine Bilirubin Urine Urobilinogen Ur Leukocyte Esterase Urine RBC Urine WBC Ur Squamous Epith Cells Ur Transition Epith Cell Urine Bacteria Granular Casts Urine Mucus Micro UA Comment Ur Microscopic Review Urine Culture Comments Urine Osmolality Ur Random Creatinine Ur Random Sodium Nasal Screen MRSA (PCR) 06/29/18 06/29/18 06/29/18 15:40 18:37 19:25 WBC RBC Hgb Hct MCV MCH MCHC RDW Plt Count MPV Neut % (Auto) Lymph % (Auto) [place] % (Auto) Eos % (Auto) Baso % (Auto) Neut # (Auto) Lymph # (Auto) [place] # (Auto) Eos # (Auto) Baso # (Auto) WBC Differential Differential Comment PT INR APTT Sodium Potassium Chloride Carbon Dioxide Anion Gap BUN Creatinine Estimated GFR POC Glucose 224 H Random Glucose Osmolality Calcium Phosphorus Magnesium Total Bilirubin AST ALT Alkaline Phosphatase Total Creatine Kinase Troponin I B-Natriuretic Peptide Total Protein Albumin TSH 2.710 Cortisol Urine Color Urine Clarity Urine pH Ur Specific [place] Urine Protein Urine Glucose (UA) Urine Ketones Urine Occult Blood Urine Nitrate Urine Bilirubin Urine Urobilinogen Ur Leukocyte Esterase Urine RBC Urine WBC Ur Squamous Epith Cells Ur Transition Epith Cell Urine Bacteria Granular Casts Urine Mucus Micro UA Comment Ur Microscopic Review Urine Culture Comments Urine Osmolality Ur Random Creatinine Ur Random Sodium Nasal Screen MRSA (PCR) Not detected 06/29/18 06/29/18 06/29/18 20:46 20:46 22:15 WBC RBC Hgb Hct MCV MCH MCHC RDW Plt Count MPV Neut % (Auto) Lymph % (Auto) [place] % (Auto) Eos % (Auto) Baso % (Auto) Neut # (Auto) Lymph # (Auto) [place] # (Auto) Eos # (Auto) Baso # (Auto) WBC Differential Differential Comment PT INR APTT Sodium 110 L* Potassium Chloride Carbon Dioxide Anion Gap BUN Creatinine Estimated GFR POC Glucose Random Glucose Osmolality Calcium Phosphorus Magnesium Total Bilirubin AST ALT Alkaline Phosphatase Total Creatine Kinase Troponin I B-Natriuretic Peptide Total Protein Albumin TSH Cortisol 65.6 Urine Color Yellow Urine Clarity Hazy H Urine pH 5.0 Ur Specific [place] 1.020 Urine Protein 30 H Urine Glucose (UA) 50 Urine Ketones Negative Urine Occult Blood Negative Urine Nitrate Negative Urine Bilirubin Negative Urine Urobilinogen Less than 2 Ur Leukocyte Esterase Small H Urine RBC 1 Urine WBC 6 H Ur Squamous Epith Cells 4 Ur Transition Epith Cell 3 Urine Bacteria Moderate H Granular Casts 19 Urine Mucus Few H Micro UA Comment Culture indicated Ur Microscopic Review Not Reportable Urine Culture Comments Culture indicated Urine Osmolality Ur Random Creatinine Ur Random Sodium Nasal Screen MRSA (PCR) 06/29/18 06/29/18 06/29/18 22:15 22:15 22:15 WBC RBC Hgb Hct MCV MCH MCHC RDW Plt Count MPV Neut % (Auto) Lymph % (Auto) [place] % (Auto) Eos % (Auto) Baso % (Auto) Neut # (Auto) Lymph # (Auto) [place] # (Auto) Eos # (Auto) Baso # (Auto) WBC Differential Differential Comment PT INR APTT Sodium Potassium Chloride Carbon Dioxide Anion Gap BUN Creatinine Estimated GFR POC Glucose Random Glucose Osmolality Calcium Phosphorus Magnesium Total Bilirubin AST ALT Alkaline Phosphatase Total Creatine Kinase Troponin I B-Natriuretic Peptide Total Protein Albumin TSH Cortisol Urine Color Urine Clarity Urine pH Ur Specific [place] Urine Protein Urine Glucose (UA) Urine Ketones Urine Occult Blood Urine Nitrate Urine Bilirubin Urine Urobilinogen Ur Leukocyte Esterase Urine RBC Urine WBC Ur Squamous Epith Cells Ur Transition Epith Cell Urine Bacteria Granular Casts Urine Mucus Micro UA Comment Ur Microscopic Review Urine Culture Comments Urine Osmolality 453 Ur Random Creatinine 103 Ur Random Sodium 11 Nasal Screen MRSA (PCR) 06/29/18 06/30/18 06/30/18 23:37 00:58 04:47 WBC RBC Hgb Hct MCV MCH MCHC RDW Plt Count MPV Neut % (Auto) Lymph % (Auto) [place] % (Auto) Eos % (Auto) Baso % (Auto) Neut # (Auto) Lymph # (Auto) [place] # (Auto) Eos # (Auto) Baso # (Auto) WBC Differential Differential Comment PT INR APTT Sodium 114 L* 115 L* Potassium 4.1 Chloride 80 L Carbon Dioxide 25.7 Anion Gap 9 BUN 5 L Creatinine 0.52 Estimated GFR Greater than 89 POC Glucose 261 H Random Glucose 124 H Osmolality Calcium 8.3 L Phosphorus 3.0 Magnesium 1.3 L Total Bilirubin AST ALT Alkaline Phosphatase Total Creatine Kinase Troponin I B-Natriuretic Peptide Total Protein Albumin TSH Cortisol Urine Color Urine Clarity Urine pH Ur Specific [place] Urine Protein Urine Glucose (UA) Urine Ketones Urine Occult Blood Urine Nitrate Urine Bilirubin Urine Urobilinogen Ur Leukocyte Esterase Urine RBC Urine WBC Ur Squamous Epith Cells Ur Transition Epith Cell Urine Bacteria Granular Casts Urine Mucus Micro UA Comment Ur Microscopic Review Urine Culture Comments Urine Osmolality Ur Random Creatinine Ur Random Sodium Nasal Screen MRSA (PCR) 06/30/18 06/30/18 04:47 04:47 WBC 8.8 D RBC 3.45 L Hgb 11.7 Hct 33.7 L MCV 97.8 MCH 34.0 MCHC 34.8 RDW 14.8 Plt Count 256 MPV 8.6 Neut % (Auto) 90.4 H Lymph % (Auto) 6.5 L [place] % (Auto) 3.1 Eos % (Auto) 0.0 Baso % (Auto) 0.0 Neut # (Auto) 8.0 H Lymph # (Auto) 0.6 L [place] # (Auto) 0.3 Eos # (Auto) 0.0 Baso # (Auto) 0.0 WBC Differential . Differential Comment Auto diff final PT INR APTT Sodium Potassium Chloride Carbon Dioxide Anion Gap BUN Creatinine Estimated GFR POC Glucose Random Glucose Osmolality Calcium Phosphorus Magnesium Total Bilirubin AST ALT Alkaline Phosphatase Total Creatine Kinase Troponin I B-Natriuretic Peptide 381 H Total Protein Albumin TSH Cortisol Urine Color Urine Clarity Urine pH Ur Specific [place] Urine Protein Urine Glucose (UA) Urine Ketones Urine Occult Blood Urine Nitrate Urine Bilirubin Urine Urobilinogen Ur Leukocyte Esterase Urine RBC Urine WBC Ur Squamous Epith Cells Ur Transition Epith Cell Urine Bacteria Granular Casts Urine Mucus Micro UA Comment Ur Microscopic Review Urine Culture Comments Urine Osmolality Ur Random Creatinine Ur Random Sodium Nasal Screen MRSA (PCR) Microbiology 06/29/18 22:15 Urine - Clean Catch Urine Legionella Antigen - Final Positive Legionella Antigen 06/29/18 22:15 Urine - Clean Catch Urine Streptococcus pneumoniae Antigen ( M - Final Presumptive negative for streptococcus pneumoniae antigen, suggesting no current or recent infection. Infection due to Streptococcus pneumoniae cannot be ruled out since the antigen present in the sample may be below the detection limit of the test. - Imaging Impressions Chest X-Ray 06/29/18 15:35 CONCLUSION: 1. Small bilateral pleural effusions. 2. Bibasilar atelectasis and/or mild infiltrates. Chest X-Ray 06/30/18 05:00 CONCLUSION: The bibasilar opacities have slightly increased and represent pleural effusions with associated volume loss and/or airspace consolidation. - Procedures None Assessment and Plan - Plan 83-year-old female with: Hyponatremia very slow improvement will consult nephrology Acute respiratory failure improved Suspected pneumonia History of C. difficile colitis History of atrial fibrillation Hypothyroidism Plan: -Transfer out of ICU -Follow serial sodium. -Check TSH, cortisol -Resume salt tabs 1 g 3 times daily p.o. home dose -Continue other home meds including Cardizem, Eliquis for A. fib -Blood cultures ordered. -Empiric antibiotic coverage with IV Rocephin and Zithromax initiated for suspected pneumonia -Check stool for C. difficile. Continue lactobacillus -P.o. diet as tolerated -Follow intake output, monitor and replete elect lites, follow BUN/creatinine. -Watch for hyperglycemia, SSI for glycemic control if needed. -Consult nephrology for hyponatremia. Increase activity PT and OT A.m. labs Defer hyponatremia to nephrology Code Status: Full code Discussed Condition With: RN and patient Discharge Planning: Pending improvement of her sodium
[2018-06-30] MEDS: Ascorbic Acid 500 MG Tablet PO SCH ×2 (10:56→20:59)
[2018-06-30] MEDS: Potassium Chloride 25 MEQ Effervescent Tablet PO SCH (10:56)
[2018-06-30] MEDS: Lactobacillus Acidophilus/L. Spores Tablet PO SCH (10:56)
[2018-06-30] MEDS: dilTIAZem CD 120 MG Capsule PO SCH (10:57)
[2018-06-30] MEDS: Senna/Docusate Sodium 8.6/50 MG Tablet PO SCH ×2 (10:58→21:01)
[2018-06-30] MEDS: Polyethylene Glycol 3350 17 GM Packet PO SCH ×2 (10:58→21:03)
[2018-06-30] MEDS: Ferrous Sulfate 325 MG Tablet PO SCH ×2 (10:59→20:58)
[2018-06-30] MEDS: Sodium Chloride 0.9% 2 ML Flush BID IV.FLUSH SCH ×2 (10:59→21:02)
[2018-06-30] MEDS: Sodium Chloride 1 GM Tablet PO SCH ×3 (10:59→17:50)
[2018-06-30] MEDS: Folic Acid 1 MG Tablet PO SCH (10:59)
[2018-06-30] MEDS: Pantoprazole Sodium 20 MG DR Tablet PO SCH (10:59)
[2018-06-30] MEDS: Magnesium Oxide 400 MG Tablet PO SCH ×2 (11:00→20:59)
[2018-06-30] MEDS: Famotidine 20 MG Tablet PO SCH ×2 (12:45→20:58)
--- NOTE | 2018-06-30 13:00 | ECG ---
Date Performed: 06/29/2018 Time Performed: 15:11:43 PTAGE: 83 years EKG: SINUS TACHYCARDIA BORDERLINE LEFT AXIS DEVIATION LOW QRS VOLTAGE NONSPECIFIC T-WAVE ABNORMA LITY ABNORMAL ECG INTERPRETATION BASED ON A DEFAULT AGE OF 40 YEARS Since the PREVIOUS TRACING , no significant change noted PREVIOUS TRACIN04/05/2018 23.08 DOCTOR: Brody Smith Interpretating Date/Time 06/30/2018 12:58:05
[2018-06-30] MEDS: Azithromycin Inj 500 MG in Sodium Chlor 0.9% Inj 250 ML IV.SIG SCH (18:43)
[2018-06-30 21:11] LABS: Uric Acid 1.8 mg/dl (2.6-6.0)
[2018-07-01 01:28] LABS: Thyroid Stimulating Hormone 0.935 uIU/mL (0.358-3.740)
[2018-07-01] MEDS: Insulin NovoLIN Regular Correctional Sugar Inj SQ SCH ×5 (01:42→23:09)
[2018-07-01] MEDS: Chlorhexidine Gluconate 2% 1 Pack (2 Cloths) TOPICAL SCH (03:29)
[2018-07-01] MEDS: Sod Chloride 0.9% Inj 1,000 ML IV.CONT SCH (06:31)
[2018-07-01 07:49] LABS: Baso # (Auto) 0.1 th/mm3 (0.0-0.2); Baso % (Auto) 0.3 % (0.0-2.0); Hematocrit 30.1 % (35.0-46.0); Hemoglobin 10.2 gm/dL (11.6-15.3); Lymph # (Auto) 0.6 th/mm3 (1.0-4.8); Lymph % (Auto) 3.3 % (9.0-44.0); Mean Corpuscular HGB Conc 33.9 % (32.0-36.0); Mean Corpuscular Hemoglobin 34.2 pg (27.0-34.0); Mean Corpuscular Volume 100.9 fL (80.0-100.0); Mean Platelet Volume 8.5 fL (7.0-11.0); Mono # (Auto) 0.6 th/mm3 (0.0-0.9); Mono % (Auto) 3.5 % (0.0-8.0); Neut # (Auto) 17.1 th/mm3 (1.8-7.7); Neut % (Auto) 92.9 % (16.0-70.0); Platelet Count 231 th/mm3 (150-450); Red Blood Count 2.98 mil/mm3 (4.00-5.30); Red Cell Distribution Width 15.7 % (11.6-17.2); White Blood Count 18.4 th/mm3 (4.0-11.0)
[2018-07-01 07:50] LABS: Alanine Aminotransferase 16 U/L (10-53); Albumin 2.1 g/dL (3.4-5.0); Alkaline Phosphatase 85 U/L (45-117); Anion Gap 8 meq/L (5-15); Aspartate Aminotransferase 29 U/L (15-37); Blood Urea Nitrogen 4 mg/dL (7-18); Chloride 91 meq/L (98-107); Free T4 (Free Thyroxine) 1.34 ng/dL (0.76-1.46); Glomerular Filtration Rate Greater Than 89 mL/min (>89); Glucose,Random 119 mg/dL (74-106); Magnesium 1.4 mg/dL (1.5-2.5); Phosphorus 2.3 mg/dL (2.5-4.9); Potassium 3.8 meq/L (3.5-5.1); Total Protein 5.9 g/dL (6.4-8.2)
[2018-07-01 07:55] LABS: Sodium 121 meq/L (136-145)
[2018-07-01] MEDS: Famotidine 20 MG Tablet PO SCH ×2 (09:19→21:10)
[2018-07-01] MEDS: Ferrous Sulfate 325 MG Tablet PO SCH ×2 (09:19→21:10)
[2018-07-01] MEDS: Ascorbic Acid 500 MG Tablet PO SCH ×2 (09:19→21:10)
[2018-07-01] MEDS: dilTIAZem CD 120 MG Capsule PO SCH (09:19)
[2018-07-01] MEDS: Pantoprazole Sodium 20 MG DR Tablet PO SCH (09:19)
[2018-07-01] MEDS: Sodium Chloride 1 GM Tablet PO SCH ×3 (09:19→18:04)
[2018-07-01] MEDS: Senna/Docusate Sodium 8.6/50 MG Tablet PO SCH ×2 (09:19→21:11)
[2018-07-01] MEDS: Folic Acid 1 MG Tablet PO SCH (09:19)
[2018-07-01] MEDS: Magnesium Oxide 400 MG Tablet PO SCH ×2 (09:19→21:10)
[2018-07-01] MEDS: Lactobacillus Acidophilus/L. Spores Tablet PO SCH (09:19)
[2018-07-01] MEDS: Sodium Chloride 0.9% 2 ML Flush BID IV.FLUSH SCH ×2 (09:20→21:13)
[2018-07-01] MEDS: Polyethylene Glycol 3350 17 GM Packet PO SCH ×2 (09:20→21:11)
--- NOTE | 2018-07-01 11:05 | P.DS ---
Date of admission: 06/29/18 18:02 Primary care physician: Esteban Spears MD Attending physician on discharge: Radha Johnson Anticipated date of discharge: 07/01/18 Brief History from admission: 83-year-old female was brought to the ER with history of shortness of breath going on for 2 days. She was previously admitted to the hospital in March 2018 after being treated for C. difficile colitis was subsequently discharged to rehab and then home. She has been having some loose bowel movements off and on since then. She has also had problems with hyponatremia and is supposed to be on 3 salt tabs daily however just takes 1 daily now. Patient was brought to the ER and placed on nasal cannula. On workup she was noted to have a sodium of 111. Hospitalist service felt uncomfortable admitting this patient hence she was accepted for admission by critical care medicine service. She was otherwise completely awake and alert not in any acute distress without any documented hypotension. Patient denied any fevers or chills. Denied any abdominal pain nausea vomiting, melena or rectal bleeding. She does have a history of atrial fibrillation and takes Eliquis. Patient update on day of discharge: Follow-up pneumonia, shortness of breath, atrial fibrillation, hypothyroidism, hypertension, and C. difficile. Patient seen and examined sitting in the side of the bed, denies any shortness of breath. Patient stated she came in with shortness of breath, cannot even talk without getting shortness of breath. However today she feels better. Patient in room air, stated no need oxygen. Physical therapy stated patient sat 96-97% with activity in room air. Patient denies any headache or dizziness , denies any chest pain or shortness of breath, denies any abdominal pain, nausea, vomiting, diarrhea or constipation. Patient denies any fever or chills. Discussed discharge planning, patient agreed Nurse reported no acute concerns overnight. DS: Medications - Discharge Medications Prescriptions: levofloxacin [Levaquin] 750 mg PO DAILY 6 Days #6 tab torsemide 10 mg PO DAILY 30 Days #30 tab DS: Summary Hospital Course: This is an 83 years old elderly female with past medical history of atrial fibrillation, hyponatremia, hypothyroidism, hypertension, with recent hospitalization for C. difficile presented to the emergency room with increasing shortness of breath. Patient was admitted and treated for pneumonia. Blood cultures shows no growth in 1 day, urine culture is positive for Legionella antigen. Chest x-ray showed basilar opacities and pleural effusions with volume loss and airspace consolidation. Patient was treated with IV antibiotic, ceftriaxone and azithromycin. Will change to Levaquin p.o. upon discharge. Patient was also seen by the nephrology for chronic hyponatremia with recommendation to continue oral sodium chloride and IV fluid. Plan to discharge patient home on p.o. antibiotic Levaquin when cleared with nephrology. Patient needs to will follow up with the primary care physician, Dr. Billy, a chest x-ray in 3 weeks to follow-up with pneumonia. - Time Spent with Patient Total time spent providing and/or coordinating discharge services: Less than 30 minutes - Quality: VTE Deep Vein Thrombosis/Pulmonary Embolism Present on Admission: No Exam Vital signs: Vital Signs 06/30/18 11:00 06/30/18 12:00 06/30/18 12:27 Temperature Pulse Rate 90 91 H 100 H Respiratory Rate 23 26 H 38 H Blood Pressure 131/63 138/65 Pulse Oximetry 96 96 06/30/18 14:24 06/30/18 15:00 06/30/18 16:00 Temperature 98.2 F Pulse Rate 91 H 83 83 Respiratory Rate 21 16 Blood Pressure 142/67 H Pulse Oximetry 96 06/30/18 18:00 06/30/18 19:55 06/30/18 20:00 Temperature 98.0 F 97.8 F Pulse Rate 87 89 85 Respiratory Rate 20 18 Blood Pressure 124/68 121/60 Pulse Oximetry 94 L 96 06/30/18 22:13 06/30/18 23:55 07/01/18 00:00 Temperature 97.2 F L Pulse Rate 86 87 88 Respiratory Rate 14 17 Blood Pressure 119/58 L Pulse Oximetry 96 07/01/18 03:00 07/01/18 04:02 07/01/18 08:00 Temperature 97.7 F Pulse Rate 80 94 H 81 Respiratory Rate 18 17 Blood Pressure 127/66 Pulse Oximetry 97 Intake & Output 06/30/18 07/01/18 07/01/18 18:59 06:59 18:59 Intake Total 1100 / 1100 1000 / 1000 Balance 1100 / 1100 1000 / 1000 Weight 52.2 kg Intake: IV 1100 / 1100 1000 / 1000 NS Inj 1,000 ML @ 84 mls/hr IV. 1000 / 1000 1000 / 1000 CONT .[id number] [facility] Rx#:[id number] Rocephin Inj 1,000 MG In NS Inj 100 / 100 100 ML @ 200 mls/hr IV.SIG Q24H COUNT INCLUDES THE [facility] Rx#:[id number] Other: # Voids 1 2 Date of Last Bowel Movement 06/29/18 # Bowel Movements 1 2 Narrative: GENERAL: Well-developed, well-nourished, elderly female in no apparent distress SKIN: Warm and dry. HEAD: Atraumatic. Normocephalic. EYES: Pupils equal and round. No scleral icterus. No injection or drainage. ENT: No nasal bleeding or discharge. Mucous membranes pink and moist. NECK: Trachea midline. No JVD. CARDIOVASCULAR: Regular rate and rhythm. RESPIRATORY: No accessory muscle use. Clear and diminished to auscultation. Breath sounds equal bilaterally. GASTROINTESTINAL: Abdomen soft, non-tender, nondistended. Hepatic and splenic margins not palpable. MUSCULOSKELETAL: Extremities without clubbing, cyanosis, or edema. No obvious deformities. NEUROLOGICAL: Awake and alert. No obvious cranial nerve deficits. Motor grossly within normal limits. Generalized weakness moving all 4 extremities normal speech. PSYCHIATRIC: Appropriate mood and affect; insight and judgment normal. Results Procedures completed during hospitalization: None Labs on day of discharge: Labs from last 24 hours 07/01/18 07/01/18 07/01/18 06:40 06:40 06:40 WBC 18.4 H RBC 2.98 L Hgb 10.2 L Hct 30.1 L MCV 100.9 H MCH 34.2 H MCHC 33.9 RDW 15.7 Plt Count 231 MPV 8.5 Neut % (Auto) 92.9 H Lymph % (Auto) 3.3 L [place] % (Auto) 3.5 Eos % (Auto) 0.0 Baso % (Auto) 0.3 Neut # (Auto) 17.1 H Lymph # (Auto) 0.6 L [place] # (Auto) 0.6 Eos # (Auto) 0.0 Baso # (Auto) 0.1 WBC Differential . Differential Comment Auto diff final Sodium 121 L* Potassium 3.8 Chloride 91 L D Carbon Dioxide 22.0 Anion Gap 8 BUN 4 L Creatinine 0.41 L Estimated GFR Greater than 89 POC Glucose Random Glucose 119 H Hemoglobin A1c Uric Acid Calcium 8.0 L Phosphorus 2.3 L Magnesium 1.4 L Total Bilirubin 0.2 AST 29 ALT 16 Alkaline Phosphatase 85 B-Natriuretic Peptide 353 H Total Protein 5.9 L D Albumin 2.1 L TSH Free T4 1.34 07/01/18 07/01/18 07/01/18 06:40 05:38 01:38 WBC RBC Hgb Hct MCV MCH MCHC RDW Plt Count MPV Neut % (Auto) Lymph % (Auto) [place] % (Auto) Eos % (Auto) Baso % (Auto) Neut # (Auto) Lymph # (Auto) [place] # (Auto) Eos # (Auto) Baso # (Auto) WBC Differential Differential Comment Sodium Potassium Chloride Carbon Dioxide Anion Gap BUN Creatinine Estimated GFR POC Glucose 139 H 172 H Random Glucose Hemoglobin A1c Pending Uric Acid Calcium Phosphorus Magnesium Total Bilirubin AST ALT Alkaline Phosphatase B-Natriuretic Peptide Total Protein Albumin TSH Free T4 07/01/18 06/30/18 06/30/18 00:11 19:58 18:22 WBC RBC Hgb Hct MCV MCH MCHC RDW Plt Count MPV Neut % (Auto) Lymph % (Auto) [place] % (Auto) Eos % (Auto) Baso % (Auto) Neut # (Auto) Lymph # (Auto) [place] # (Auto) Eos # (Auto) Baso # (Auto) WBC Differential Differential Comment Sodium 119 L* 117 L* Potassium Chloride Carbon Dioxide Anion Gap BUN Creatinine Estimated GFR POC Glucose 177 H Random Glucose Hemoglobin A1c Uric Acid 1.8 L Calcium Phosphorus Magnesium Total Bilirubin AST ALT Alkaline Phosphatase B-Natriuretic Peptide Total Protein Albumin TSH 0.935 Free T4 Preliminary micro results at discharge 06/29/18 22:15 Urine Culture - Preliminary Clean Catch Urine Immature growth - reincubate 06/29/18 20:46 Aerobic Blood Culture - Preliminary Blood - Peripheral No growth in 1 day Anaerobic Blood Culture - Preliminary No growth in 1 day 06/29/18 20:41 Aerobic Blood Culture - Preliminary Blood - Peripheral No growth in 1 day Anaerobic Blood Culture - Preliminary No growth in 1 day - Impressions ITS Impressions Chest X-Ray 06/30/18 05:00 CONCLUSION: The bibasilar opacities have slightly increased and represent pleural effusions with associated volume loss and/or airspace consolidation. - Imaging and Cardiology CT scan - abdomen Status: image reviewed by mi Discharge Plan - Discharge Disposition Patient Disposition: /Home Health Service - Discharge Condition Condition: Fair - Discharge Order Discharge Orders: Discharge Order (Routine); Ordered 07/01/18 Ordered By: Andria Swan - Discharge Details Anticipated Discharge Date: 07/01/18 Discharge Comment: - Physicians Team Primary Care Provider: Esteban Spears Attending Provider: Radha Johnson Other Providers: Lizzie Duarte MD
--- NOTE | 2018-07-01 11:10 | P.DCO ---
- Diagnosis (1) Acute hyponatremia Status: Acute (2) Pleural effusion Status: Acute (3) Pneumonia Status: Acute (4) Acute UTI Status: Acute - Physical Therapy Order: Evaluate and treat, Strength and gait training - Home Health Nursing Order: Medical education, Signs/symptoms of disease process, Medication education-adverse effect, Nursing assessment with vital signs - Case Management Consult Case Management Consult-Home Health: Yes - Certification I have seen patient Laura Vincent on 07/01/18. My clinical findings support the need for the requested home health care services because: Limited mobility due to disease progression, Patient has SOB, Deconditioned with increased weakness, Limited ability to care for self, Need for psychosocial assistance, Infection with risk of complications I certify that my clinical findings support that this patient is homebound because: Impaired cognitive ability/safety, Unsteady gait/balance, Unsafe to leave home unassisted (3) Pneumonia Qualifiers: Pneumonia type: due to unspecified organism Laterality: unspecified laterality Lung location: lower lobe of lung Qualified Code(s): J18.1 - Lobar pneumonia, unspecified organism
--- NOTE | 2018-07-01 15:22 | P.PNNP ---
Subjective Interval history: Patient is doing better she complains of cough sodium is 121 today Physical Exam Vital signs: Vital Signs 06/30/18 16:00 06/30/18 18:00 06/30/18 19:55 Temperature 98.0 F Pulse Rate 83 87 89 Respiratory Rate 20 Blood Pressure 124/68 Pulse Oximetry 94 L 06/30/18 20:00 06/30/18 22:13 06/30/18 23:55 Temperature 97.8 F Pulse Rate 85 86 87 Respiratory Rate 18 14 Blood Pressure 121/60 Pulse Oximetry 96 07/01/18 00:00 07/01/18 03:00 07/01/18 04:02 Temperature 97.2 F L Pulse Rate 88 80 94 H Respiratory Rate 17 18 Blood Pressure 119/58 L Pulse Oximetry 96 07/01/18 08:00 07/01/18 09:00 07/01/18 11:02 Temperature 97.7 F Pulse Rate 81 89 82 Respiratory Rate 17 16 Blood Pressure 127/66 Pulse Oximetry 95 98 07/01/18 12:00 Temperature 97.6 F Pulse Rate 85 Respiratory Rate 17 Blood Pressure 135/76 Pulse Oximetry 98 Intake & Output 06/30/18 07/01/18 07/01/18 18:59 06:59 18:59 Intake Total 1100 / 1100 1000 / 1000 250 / 250 Balance 1100 / 1100 1000 / 1000 250 / 250 Weight 52.2 kg Intake: IV 1100 / 1100 1000 / 1000 250 / 250 NS Inj 1,000 ML @ 84 mls/hr IV. 1000 / 1000 1000 / 1000 CONT .[id number] [facility] Rx#:[id number] Azithromycin Inj 500 MG In NS 250 / 250 Inj 250 ML @ 250 mls/hr IV.SIG Q24H [facility] Rx#:[id number] Rocephin Inj 1,000 MG In NS Inj 100 / 100 100 ML @ 200 mls/hr IV.SIG Q24H [facility] Rx#:[id number] Other: # Voids 1 2 Date of Last Bowel Movement 06/29/18 # Bowel Movements 1 2 Narrative: GENERAL: Well-developed, well-nourished, elderly female in no apparent distress SKIN: Warm and dry. HEAD: Atraumatic. Normocephalic. EYES: Pupils equal and round. No scleral icterus. No injection or drainage. ENT: No nasal bleeding or discharge. Mucous membranes pink and moist. NECK: Trachea midline. No JVD. CARDIOVASCULAR: Regular rate and rhythm. RESPIRATORY: No accessory muscle use. Clear and diminished to auscultation. Breath sounds equal bilaterally. GASTROINTESTINAL: Abdomen soft, non-tender, nondistended. Hepatic and splenic margins not palpable. MUSCULOSKELETAL: Extremities without clubbing, cyanosis, or edema. No obvious deformities. NEUROLOGICAL: Awake and alert. No obvious cranial nerve deficits. Motor grossly within normal limits. Generalized weakness moving all 4 extremities normal speech. PSYCHIATRIC: Appropriate mood and affect; insight and judgment normal. Assessment and Plan - Assessment (1) Hyponatremia Code(s): E87.1 - Hypo-osmolality and hyponatremia Status: Acute Plan: Patient seen and examined, agree with above, Has chronic Hyponatremia and electrolyte disorder, BP is stable, clinically euvolemic, no confusion. On IVF with NS. Sodium is now 121. Also on oral NaCl. She has magnesium deficit I have ordered magnesium sulfate 2 g, she has magnesium losses in the urine documented in septum She has same problem last admission in [place]. Doing well we will continue to monitor Discussed with Dr. Elizabeth jimenez IVF, satay on NaCL tab/Torsemide (2) Acute UTI Code(s): N39.0 - Urinary tract infection, site not specified Status: Acute Plan: Legionella antigen plus enterococcus UTI being treated with azithromycin and cefuroxime cultures pending (3) Hypothyroidism Code(s): E03.9 - Hypothyroidism, unspecified Status: Chronic Qualifiers: Hypothyroidism type: unspecified Qualified Code(s): E03.9 - Hypothyroidism , unspecified Plan: Continue levothyroxine. (4) Pneumonia Code(s): J18.9 - Pneumonia, unspecified organism Status: Acute Qualifiers: Pneumonia type: due to unspecified organism Laterality: unspecified laterality Lung location: lower lobe of lung Qualified Code(s): J18.1 - Lobar pneumonia, unspecified organism Plan: On azithromycin and rocephin. (5) Pleural effusion Code(s): J90 - Pleural effusion, not elsewhere classified Status: Acute Plan: Shortness of breath improving, chest xray with increasing pleural effusion.
[2018-07-01] MEDS ORDERED: Magnesium Sulfate Inj 2 GM in Sodium Chlor 0.9% Inj 96 ML IV.SIG ONE (17:00)
[2018-07-01] MEDS: Azithromycin Inj 500 MG in Sodium Chlor 0.9% Inj 250 ML IV.SIG SCH (18:04)
[2018-07-01 21:58] LABS: Hemoglobin A1c 4.9 % (4.3-6.0)
[2018-07-02] MEDS: Chlorhexidine Gluconate 2% 1 Pack (2 Cloths) TOPICAL SCH (04:08)
[2018-07-02] MEDS: Insulin NovoLIN Regular Correctional Sugar Inj SQ SCH ×3 (05:00→17:12)
[2018-07-02] MEDS: Benzocaine/Menthol 15 MG/3.6 MG SF Lozenge BUCCAL PRN ×2 (05:00→20:42)
[2018-07-02 06:09] LABS: Baso % (Auto) 0.2 % (0.0-2.0); Eos % (Auto) 0.2 % (0.0-4.0); Hemoglobin 10.5 gm/dL (11.6-15.3); Lymph # (Auto) 1.3 th/mm3 (1.0-4.8); Lymph % (Auto) 11.4 % (9.0-44.0); Mean Corpuscular HGB Conc 34.9 % (32.0-36.0); Mean Corpuscular Hemoglobin 34.1 pg (27.0-34.0); Mean Corpuscular Volume 97.9 fL (80.0-100.0); Mean Platelet Volume 7.9 fL (7.0-11.0); Mono # (Auto) 0.9 th/mm3 (0.0-0.9); Neut # (Auto) 9.5 th/mm3 (1.8-7.7); Neut % (Auto) 80.2 % (16.0-70.0); Platelet Count 292 th/mm3 (150-450); Red Blood Count 3.07 mil/mm3 (4.00-5.30); Red Cell Distribution Width 15.5 % (11.6-17.2); White Blood Count 11.8 th/mm3 (4.0-11.0)
[2018-07-02 06:33] LABS: Anion Gap 7 meq/L (5-15); Blood Urea Nitrogen 4 mg/dL (7-18); Carbon Dioxide 26.7 meq/L (21.0-32.0); Chloride 91 meq/L (98-107); Glomerular Filtration Rate Greater Than 89 mL/min (>89); Glucose,Random 99 mg/dL (74-106); Magnesium 1.6 mg/dL (1.5-2.5); Phosphorus 2.2 mg/dL (2.5-4.9); Sodium 125 meq/L (136-145)
[2018-07-02 06:38] LABS: Potassium 2.9 meq/L (3.5-5.1)
[2018-07-02] MEDS: Potassium Chlor 20 mEq Premix 20 MEQ/100 ML PIGGYBACK IV.SIG SCH ×2 (08:08→12:06)
[2018-07-02] MEDS: Senna/Docusate Sodium 8.6/50 MG Tablet PO SCH ×2 (08:11→20:33)
[2018-07-02] MEDS: dilTIAZem CD 120 MG Capsule PO SCH (08:11)
[2018-07-02] MEDS: Magnesium Oxide 400 MG Tablet PO SCH ×2 (08:11→20:33)
[2018-07-02] MEDS: Famotidine 20 MG Tablet PO SCH ×2 (08:11→20:33)
[2018-07-02] MEDS: Sodium Chloride 1 GM Tablet PO SCH ×3 (08:13→17:06)
[2018-07-02] MEDS: Lactobacillus Acidophilus/L. Spores Tablet PO SCH (08:13)
[2018-07-02] MEDS: Ferrous Sulfate 325 MG Tablet PO SCH ×2 (08:14→20:32)
[2018-07-02] MEDS: Folic Acid 1 MG Tablet PO SCH (08:14)
[2018-07-02] MEDS: Sodium Chloride 0.9% 2 ML Flush BID IV.FLUSH SCH ×2 (08:14→20:34)
[2018-07-02] MEDS: Ascorbic Acid 500 MG Tablet PO SCH ×2 (08:14→20:33)
[2018-07-02] MEDS: Pantoprazole Sodium 20 MG DR Tablet PO SCH (08:14)
[2018-07-02] MEDS: Polyethylene Glycol 3350 17 GM Packet PO SCH ×2 (08:14→20:33)
[2018-07-02] MEDS ORDERED: Magnesium Sulfate Inj 2 GM in Sodium Chlor 0.9% Inj 96 ML IV.SIG ONE (09:00)
--- NOTE | 2018-07-02 15:30 | P.PNIM ---
Subjective Interval history: feels better,no specific complaints today. Physical Exam Vital signs: Last Vital Signs Temp 97.8 F 07/02/18 12:00 Pulse 82 07/02/18 12:00 Resp 16 07/02/18 12:00 BP 142/74 H 07/02/18 12:00 Pulse Ox 98 07/02/18 12:00 Intake & Output 06/30/18 07/01/18 07/02/18 07/03/18 06:59 06:59 06:59 06:59 Intake Total 1750 / 1750 2100 / 2100 2540 / 2540 100 / 100 Output Total 600 / 600 900 / 900 Balance 1150 / 1150 2099 / 2100 1640 / 1640 100 / 100 Weight 50 kg 52.2 kg 52.6 kg Narrative: GENERAL: pleasant elderly lady in no distress. HEENT:not pale,anicteric CARDIOVASCULAR: Regular rate and rhythm without murmurs, gallops, or rubs. RESPIRATORY: Clear to auscultation. Breath sounds equal bilaterally. No wheezes , rales, or rhonchi. GASTROINTESTINAL: Abdomen soft, non-tender, nondistended. Normal active bowel sounds MUSCULOSKELETAL: Extremities without clubbing, cyanosis, or edema. NEURO: Alert & Oriented x4 to person, place, time, situation. Moves all ext x4 Results Labs CBC & Chem 7: 07/02/18 05:35 07/02/18 05:35 Labs: Microbiology 06/29/18 20:46 Blood - Peripheral Aerobic Blood Culture - Preliminary No growth in 3 days 06/29/18 20:46 Blood - Peripheral Anaerobic Blood Culture - Preliminary No growth in 3 days 06/29/18 20:41 Blood - Peripheral Aerobic Blood Culture - Preliminary No growth in 3 days 06/29/18 20:41 Blood - Peripheral Anaerobic Blood Culture - Preliminary No growth in 3 days 06/29/18 22:15 Clean Catch Urine Urine Culture - Preliminary Enterococcus faecium Staphylococcus aureus Procedures Procedures: None Assessment and Plan (1) Hyponatremia: Code(s): E87.1 - Hypo-osmolality and hyponatremia Status: Acute (2) Acute UTI: Code(s): N39.0 - Urinary tract infection, site not specified Status: Acute (3) Hypothyroidism: Code(s): E03.9 - Hypothyroidism, unspecified Status: Chronic (4) Pneumonia: Code(s): J18.9 - Pneumonia, unspecified organism Status: Acute (5) Pleural effusion: Code(s): J90 - Pleural effusion, not elsewhere classified Status: Acute Plan 83 yo F with h/o atrial fibrillation, hyponatremia, hypothyroidism, hypertension , with recent hospitalization for C. difficile presented to the emergency room with increasing shortness of breath found to have severe hyponatremia, pneumonia and UTI. Acute problems: 1.Hyponatremia--improving.she had not been taking her NaCl pills as prescribed. Na 125 today, patient back to her usual dose of NaCl 1gm tid. Hypokalemia/hypomagnesemia--likely due to diuretics use, k 2.9 this morning, mg 1.6. repleted with IV KCL 40, PO 20meq, IV mag 2gm in addition to what she is receiving. repeat BMP/Mg pm 2. Pneumonia-clinically improving. On Ceftriaxone/Azithromycin, switching to oral Levofloxacin to complete 10 days( inclusive) 3. UTI--clinically improving,sensitive to Ceftriaxone and Quinolones, should do well on Levofloxacin. Stable chronic conditions: #HTN--continue home medication #Atrial fibrillation--rate controlled on Diltiazem. anticoagulated on Apixaban. #Hypothyroidism-continue Levothyroxin Progress Note: Quality VTE Deep Vein Thrombosis/Pulmonary Embolism Present on Admission: No _ (1) Hypothyroidism Qualifiers: Hypothyroidism type: unspecified Qualified Code(s): E03.9 - Hypothyroidism, unspecified (2) Pneumonia Qualifiers: Aspiration pneumonia type: Laterality: unspecified laterality Lung location : lower lobe of lung Pneumonia type: due to unspecified organism Qualified Code(s): J18.1 - Lobar pneumonia, unspecified organism
[2018-07-02] MEDS: Azithromycin Inj 500 MG in Sodium Chlor 0.9% Inj 250 ML IV.SIG SCH (17:09)
[2018-07-03] MEDS: Insulin NovoLIN Regular Correctional Sugar Inj SQ SCH ×4 (00:02→18:22)
[2018-07-03] MEDS: Benzocaine/Menthol 15 MG/3.6 MG SF Lozenge BUCCAL PRN ×2 (00:03→05:04)
[2018-07-03] MEDS: Chlorhexidine Gluconate 2% 1 Pack (2 Cloths) TOPICAL SCH (04:46)
[2018-07-03 08:05] LABS: Baso % (Auto) 0.2 % (0.0-2.0); Eos # (Auto) 0.1 th/mm3 (0.0-0.4); Eos % (Auto) 1.3 % (0.0-4.0); Hematocrit 33.1 % (35.0-46.0); Hemoglobin 11.4 gm/dL (11.6-15.3); Lymph # (Auto) 1.4 th/mm3 (1.0-4.8); Lymph % (Auto) 15.5 % (9.0-44.0); Mean Corpuscular HGB Conc 34.6 % (32.0-36.0); Mean Corpuscular Hemoglobin 34.3 pg (27.0-34.0); Mean Platelet Volume 7.9 fL (7.0-11.0); Mono # (Auto) 0.9 th/mm3 (0.0-0.9); Neut # (Auto) 6.6 th/mm3 (1.8-7.7); Platelet Count 341 th/mm3 (150-450); Red Blood Count 3.34 mil/mm3 (4.00-5.30); Red Cell Distribution Width 15.8 % (11.6-17.2); White Blood Count 9.1 th/mm3 (4.0-11.0)
[2018-07-03 08:26] LABS: Anion Gap 6 meq/L (5-15); Blood Urea Nitrogen 4 mg/dL (7-18); Carbon Dioxide 30.8 meq/L (21.0-32.0); Chloride 90 meq/L (98-107); Glomerular Filtration Rate Greater Than 89 mL/min (>89); Glucose,Random 87 mg/dL (74-106); Magnesium 1.9 mg/dL (1.5-2.5); Phosphorus 1.9 mg/dL (2.5-4.9); Potassium 3.5 meq/L (3.5-5.1); Sodium 127 meq/L (136-145)
[2018-07-03] MEDS: Folic Acid 1 MG Tablet PO SCH (08:50)
[2018-07-03] MEDS: Ferrous Sulfate 325 MG Tablet PO SCH ×2 (08:51→20:14)
[2018-07-03] MEDS: Famotidine 20 MG Tablet PO SCH ×2 (08:51→20:15)
[2018-07-03] MEDS: Ascorbic Acid 500 MG Tablet PO SCH ×2 (08:51→20:16)
[2018-07-03] MEDS: Sodium Chloride 1 GM Tablet PO SCH ×3 (08:51→17:57)
[2018-07-03] MEDS: Senna/Docusate Sodium 8.6/50 MG Tablet PO SCH ×3 (08:51→20:15)
[2018-07-03] MEDS: Lactobacillus Acidophilus/L. Spores Tablet PO SCH (08:51)
[2018-07-03] MEDS: Pantoprazole Sodium 20 MG DR Tablet PO SCH (08:51)
[2018-07-03] MEDS: dilTIAZem CD 120 MG Capsule PO SCH (08:53)
[2018-07-03] MEDS: Magnesium Oxide 400 MG Tablet PO SCH ×2 (08:53→20:15)
[2018-07-03] MEDS: Polyethylene Glycol 3350 17 GM Packet PO SCH ×2 (08:53→20:15)
[2018-07-03] MEDS: Sodium Chloride 0.9% 2 ML Flush BID IV.FLUSH SCH ×2 (08:54→20:15)
[2018-07-03] MEDS: levoFLOXacin 750 MG Tablet PO SCH (10:14)
[2018-07-03] MEDS: Potassium Phosphate 500 MG Soluble Tablet PO SCH ×2 (10:14→20:14)
--- NOTE | 2018-07-03 14:19 | P.PNIM ---
Subjective Interval history: heart rate was said to be 170 this morning when standing. Orthostatic vitals positive. Physical Exam Vital signs: Last Vital Signs Temp 97.8 F 07/03/18 08:00 Pulse 94 H 07/03/18 10:29 Resp 18 07/03/18 10:29 BP 156/84 H 07/03/18 08:00 Pulse Ox 98 07/03/18 10:29 Intake & Output 07/01/18 07/02/18 07/03/18 07/04/18 06:59 06:59 06:59 06:59 Intake Total 2099 / 2099 2540 / 2540 890 / 890 Output Total 900 / 900 2300 / 2300 Balance 2099 / 2099 1640 / 1640 -1410 / -1410 Weight 52.2 kg 52.6 kg Narrative: GENERAL: pleasant elderly lady in no distress. HEENT:not pale,anicteric CARDIOVASCULAR: Regular rate and rhythm without murmurs, gallops, or rubs. RESPIRATORY: Clear to auscultation. Breath sounds equal bilaterally. No wheezes , rales, or rhonchi. GASTROINTESTINAL: Abdomen soft, non-tender, nondistended. Normal active bowel sounds MUSCULOSKELETAL: Extremities without clubbing, cyanosis, or edema. NEURO: Alert & Oriented x4 to person, place, time, situation. Moves all ext x4 Results Labs CBC & Chem 7: 07/04/18 04:31 07/04/18 16:32 Labs: Microbiology 06/29/18 20:46 Blood - Peripheral Aerobic Blood Culture - Preliminary No growth in 4 days 06/29/18 20:46 Blood - Peripheral Anaerobic Blood Culture - Preliminary No growth in 4 days 06/29/18 20:41 Blood - Peripheral Aerobic Blood Culture - Preliminary No growth in 4 days 06/29/18 20:41 Blood - Peripheral Anaerobic Blood Culture - Preliminary No growth in 4 days 06/29/18 22:15 Clean Catch Urine Urine Culture - Preliminary Enterococcus faecium Staphylococcus aureus Procedures Procedures: None Assessment and Plan (1) Hyponatremia: Code(s): E87.1 - Hypo-osmolality and hyponatremia Status: Acute (2) Acute UTI: Code(s): N39.0 - Urinary tract infection, site not specified Status: Acute (3) Hypothyroidism: Code(s): E03.9 - Hypothyroidism, unspecified Status: Chronic (4) Pneumonia: Code(s): J18.9 - Pneumonia, unspecified organism Status: Acute (5) Pleural effusion: Code(s): J90 - Pleural effusion, not elsewhere classified Status: Acute Plan 83 yo F with h/o atrial fibrillation, hyponatremia, hypothyroidism, hypertension , with recent hospitalization for C. difficile presented to the emergency room with increasing shortness of breath found to have severe hyponatremia, pneumonia and UTI. Acute problems: 1.Hyponatremia--improving.she had not been taking her NaCl pills as prescribed. Na 127 today, continue usual dose of NaCl 1gm tid. Hypokalemia/hypomagnesemia/hypophosphatemia--likely due to diuretics use, k 3.5 this morning, mg 1.9. phosp 1.9. continue repletion. 2. Pneumonia-clinically improving. On Ceftriaxone/Azithromycin, switching to oral Levofloxacin to complete 10 days( inclusive) 3. UTI--clinically improving,sensitive to Ceftriaxone and Quinolones, should do well on Levofloxacin. Orthostatic hypotension--noted to be significantly orthostatic today, stopped Torsemide. Give fluid bolus. encourage oral intake. re-evaluate was supposed to be discharged, will hold off discharge Stable chronic conditions: #HTN--continue home medication #Atrial fibrillation--rate controlled on Diltiazem. anticoagulated on Apixaban. #Hypothyroidism-continue Levothyroxin Progress Note: Quality VTE Deep Vein Thrombosis/Pulmonary Embolism Present on Admission: No _ (1) Hypothyroidism Qualifiers: Hypothyroidism type: unspecified Qualified Code(s): E03.9 - Hypothyroidism, unspecified (2) Pneumonia Qualifiers: Aspiration pneumonia type: Laterality: unspecified laterality Lung location : lower lobe of lung Pneumonia type: due to unspecified organism Qualified Code(s): J18.1 - Lobar pneumonia, unspecified organism
[2018-07-03] MEDS ORDERED: Sodium Chlor 0.9% Inj 250 ML IV.SIG SCH (14:21)
[2018-07-04] MEDS: Insulin NovoLIN Regular Correctional Sugar Inj SQ SCH ×4 (00:14→17:14)
[2018-07-04] MEDS: Chlorhexidine Gluconate 2% 1 Pack (2 Cloths) TOPICAL SCH (03:22)
[2018-07-04 05:11] VITALS: RESP 18
[2018-07-04 06:34] LABS: Baso % (Auto) 0.1 % (0.0-2.0); Eos # (Auto) 0.2 th/mm3 (0.0-0.4); Eos % (Auto) 1.7 % (0.0-4.0); Hematocrit 31.7 % (35.0-46.0); Hemoglobin 11.2 gm/dL (11.6-15.3); Lymph # (Auto) 1.6 th/mm3 (1.0-4.8); Lymph % (Auto) 16.9 % (9.0-44.0); Mean Corpuscular HGB Conc 35.2 % (32.0-36.0); Mean Corpuscular Hemoglobin 34.2 pg (27.0-34.0); Mean Corpuscular Volume 97.2 fL (80.0-100.0); Mean Platelet Volume 7.8 fL (7.0-11.0); Mono % (Auto) 10.8 % (0.0-8.0); Neut # (Auto) 6.6 th/mm3 (1.8-7.7); Neut % (Auto) 70.5 % (16.0-70.0); Platelet Count 365 th/mm3 (150-450); Red Blood Count 3.27 mil/mm3 (4.00-5.30); Red Cell Distribution Width 15.3 % (11.6-17.2); White Blood Count 9.4 th/mm3 (4.0-11.0)
[2018-07-04 07:08] LABS: Anion Gap 8 meq/L (5-15); Blood Urea Nitrogen 3 mg/dL (7-18); Calcium 8.1 mg/dL (8.5-10.1); Carbon Dioxide 27.9 meq/L (21.0-32.0); Chloride 91 meq/L (98-107); Glomerular Filtration Rate Greater Than 89 mL/min (>89); Glucose,Random 73 mg/dL (74-106); Magnesium 1.6 mg/dL (1.5-2.5); Phosphorus 3.2 mg/dL (2.5-4.9); Sodium 127 meq/L (136-145)
[2018-07-04 07:15] LABS: Potassium 2.9 meq/L (3.5-5.1)
[2018-07-04] MEDS ORDERED: Potassium Chloride 25 MEQ Effervescent Tablet PO ONE (07:30)
[2018-07-04] MEDS: Sodium Chloride 1 GM Tablet PO SCH ×3 (08:02→17:42)
[2018-07-04] MEDS: Polyethylene Glycol 3350 17 GM Packet PO SCH (08:02)
[2018-07-04] MEDS: Ascorbic Acid 500 MG Tablet PO SCH (08:03)
[2018-07-04] MEDS: Ferrous Sulfate 325 MG Tablet PO SCH (08:03)
[2018-07-04] MEDS: Lactobacillus Acidophilus/L. Spores Tablet PO SCH (08:03)
[2018-07-04] MEDS: dilTIAZem CD 120 MG Capsule PO SCH (08:03)
[2018-07-04] MEDS: Folic Acid 1 MG Tablet PO SCH (08:03)
[2018-07-04] MEDS: Pantoprazole Sodium 20 MG DR Tablet PO SCH (08:03)
[2018-07-04] MEDS: Famotidine 20 MG Tablet PO SCH (08:03)
[2018-07-04] MEDS: Potassium Phosphate 500 MG Soluble Tablet PO SCH (08:03)
[2018-07-04] MEDS: Magnesium Oxide 400 MG Tablet PO SCH (08:04)
[2018-07-04] MEDS: Senna/Docusate Sodium 8.6/50 MG Tablet PO SCH (08:04)
[2018-07-04] MEDS: Potassium Chlor 20 mEq Premix 20 MEQ/100 ML PIGGYBACK IV.SIG SCH ×4 (08:06→10:05)
[2018-07-04] MEDS: Sodium Chloride 0.9% 2 ML Flush BID IV.FLUSH SCH (08:10)
[2018-07-04] MEDS: levoFLOXacin 750 MG Tablet PO SCH (12:39)
[2018-07-04 14:59] VITALS: BP 142/83; TEMP 97.4; O2SAT 97
[2018-07-04 18:15] VITALS: PULSE 93
== END 2018-07-04 18:30 | disposition home health service (06) ==
LOC: NEPE 14:39 → NEDA 18:02 → HIMC 19:05 → N04 06-30 13:17
PROVIDERS: ADMIT Hospitalist; ATTEND Hospitalist
DX: I10 Essential (primary) hypertension; T50.2X5A Adverse effect of carbonic-anhydrase inhibitors, benzothiadiazides and other diuretics, initial encounter; J96.00 Acute respiratory failure, unspecified whether with hypoxia or hypercapnia; Z79.01 Long term (current) use of anticoagulants; E83.42 Hypomagnesemia; N39.0 Urinary tract infection, site not specified; Z91.011 Allergy to milk products; Z87.891 Personal history of nicotine dependence; D64.9 Anemia, unspecified; J18.1 Lobar pneumonia, unspecified organism; E03.9 Hypothyroidism, unspecified; E87.1 Hypo-osmolality and hyponatremia; J90 Pleural effusion, not elsewhere classified; E83.39 Other disorders of phosphorus metabolism; Z86.19 Personal history of other infectious and parasitic diseases; I48.91 Unspecified atrial fibrillation; E87.6 Hypokalemia; Z82.3 Family history of stroke; I95.1 Orthostatic hypotension; R26.81 Unsteadiness on feet